=== PATIENT | male | born 1940 | race Caucasian/White ===

== ENCOUNTER 2019-08-22 15:12 | Emergency (ER) | payer OTHER ==
[2019-08-22] MEDS ORDERED: LIDOCAINE 1% MPF 5 ML VIAL ONE ×2 (16:20→16:27)
[2019-08-22] MEDS ORDERED: TETANUS & DIPHTHERIA TOX,ADULT 0.5 ML VIAL ONE (16:25)
--- NOTE | 2019-08-22 17:09 | EDPHYS ---
Physician Documentation [facility] Name: Que Taylor Age: 79 yrs Sex: Male : 1940 Arrival Date: 08/22/2019 Time: 15:13 Bed 15 Private MD: ED Physician Shayan Haynes HPI: 08/22 16:07 This 79 yrs old Male presents to ER via Ambulatory with complaints of jmm Laceration To Hand. 16:07 The patient has a laceration related to:. Onset: The symptoms/episode began/occurred jmm acutely, just prior to arrival. Associated signs and symptoms: Pertinent positives: Pertinent negatives: numbness distal to injury, suspected foreign body. This is a 79 year old male with a history of atrial fibrillation that presents to the ED with complaints of laceration to this left 2nd finger. Injury occurred while changing a switch blade. Denies other injury. . Historical: - Allergies: 15:27 No Known Allergies; ch - Home Meds: 15:27 Clonazepam Oral [Active]; finasteride Oral once daily [Active]; omeprazole 20 mg Oral ch cpDR 1 cap once daily [Active]; trazosin [Active]; trosimice [Active]; Xarelto Oral 1 tab once daily [Active]; - PMHx: 15:27 Atrial Fib; enlarged prostate; Hypertension; ch - PSHx: 15:50 None; rb1 - Immunization history:: Adult Immunizations up to date. - Social history:: Smoking status: Patient/guardian denies using tobacco. - Ebola Screening: : Patient negative for fever greater than or equal to 101.5 degrees Fahrenheit, and additional compatible Ebola Virus Disease symptoms Patient denies exposure to infectious person Patient denies travel to an Ebola-affected area in the 21 days before illness onset No symptoms or risks identified at this time. ROS: 16:07 Constitutional: Negative for fever, chills, and weight loss, Cardiovascular: Negative jmm for chest pain, palpitations, and edema, Respiratory: Negative for shortness of breath, cough, wheezing, and pleuritic chest pain. 16:07 MS/extremity: Positive for injury or acute deformity, laceration. 16:07 All other systems are negative. Exam: 16:07 Constitutional: This is a well developed, well nourished patient who is awake, alert, jmm and in no acute distress. Head/Face: atraumatic. Eyes: EOMI, no conjunctival erythema appreciated ENT: Moist Mucus Membranes Neck: Trachea midline, Supple Chest/axilla: Normal chest wall appearance and motion. Cardiovascular: Regular rate and rhythm. No edema appreciated Respiratory: Normal respirations, no respiratory distress appreciated Abdomen/GI: Non distended, soft Back: Normal ROM 16:07 Musculoskeletal/extremity: FROM noted to the left 2nd finger. . 16:07 Skin: 2cm laceration noted to the left 2 cm to the left 2nd finger. 16:07 Neuro: Orientation: is normal, Mentation: is normal, Memory: is normal. 16:07 Psych: Behavior/mood is pleasant, cooperative. Vital Signs: 15:43 BP 132 / 64; Pulse 50; Resp 16; Temp 97.; ch 15:43 Temp 97.5; Pulse Ox 99% on R/A; Weight 104.33 kg; Height 6 ft. (182.88 cm); Pain 2/10; ch 16:43 BP 133 / 65; Pulse 58; Resp 17; Pulse Ox 99% on R/A; Pain 0/10; rb1 15:43 Body Mass Index 31.19 (104.33 kg, 182.88 cm) ch Laceration: 17:06 Wound Repair of 2cm ( 0.8in ) subcutaneous laceration to palmar aspect of distal jmm phalanx of left index finger. Distal neuro/vascular/tendon intact. Anesthesia: Local anesthetic administered with 3 mls of 1% lidocaine. Wound prep: Simple cleansing with betadine by me. Skin closed with 4 4-0 Prolene using simple sutures and sterile technique. Patient tolerated well. MDM: 16:07 Patient medically screened. [facility] 17:06 Data reviewed: vital signs, nurses notes. Counseling: I had a detailed discussion with [facility] the patient and/or guardian regarding: the historical points, exam findings, and any diagnostic results supporting the discharge/admit diagnosis, the need for outpatient follow up, to return to the emergency department if symptoms worsen or persist or if there are any questions or concerns that arise at home. ED course: Patient given wound infection and bleeding return precautions. Patient understood and agrees with the plan of care. . Administered Medications: 16:33 Drug: Tetanus-Diphtheria Toxoid Adult 0.5 ml {[employer] Helper: [employer]. Exp: rb1 03/26/2021. Lot #: [id number]. } Route: IM; Site: left deltoid; 16:50 Follow up: Response: No adverse reaction [facility] 16:35 Drug: Lidocaine (1 %) 5 ml Volume: 5 ml; Route: Infiltration; rb1 Disposition: 08/23 07:44 Co-signature as Attending Physician, Shayan Haynes MD. Disposition: 08/22/19 17:08 Discharged to Home. Impression: Finger Laceration. - Condition is Stable. - Discharge Instructions: Laceration Care, Adult. - Prescriptions for Cephalexin 500 mg Oral Capsule - take 1 capsule by ORAL route every 6 hours for 10 days; 40 capsule. - Medication Reconciliation Form, Thank You Letter, Antibiotic Education, Prescription Opioid Use form. - Follow up: Private Physician; When: 5 - 6 days; Reason: Recheck today's complaints, Continuance of care, Staple/Suture removal, Re-evaluation by your physician. Signatures: Bibi Aden RN RN ch Mickail, Joel, PA PA jmm Barber, Rebecca, RN RN [facility] Shayan Haynes MD MD Corrections: (The following items were deleted from the chart) 08/22 18:06 17:08 08/22/2019 17:08 Discharged to Home. Impression: Finger Laceration. Condition is rb1 Stable. Forms are Medication Reconciliation Form, Thank You Letter, Antibiotic Education, Prescription Opioid Use. Follow up: Private Physician; When: 5 - 6 days; Reason: Recheck today's complaints, Continuance of care, Staple/Suture removal, Re-evaluation by your physician. ines
--- NOTE | 2019-08-22 17:09 | ER ---
Nurse's Notes [facility] Name: Que Taylor Age: 79 yrs Sex: Male : 1940 Arrival Date: 08/22/2019 Time: 15:13 Bed 15 Private MD: Diagnosis: Finger Laceration Presentation: 08/22 15:43 Presenting complaint: Patient states: cut finger about 1 hour ago on a knife/blade. Transition of care: patient was not received from another setting of care. Complicating Factors: There are no complicating factors for this patient. Onset of symptoms was August 22, 2019 at 14:40. Risk Assessment: Do you want to hurt yourself or someone else? Patient reports no desire to harm self or others. Initial Sepsis Screen: Does the patient meet any 2 criteria? No. Patient's initial sepsis screen is negative. Does the patient have a suspected source of infection? No. Patient's initial sepsis screen is negative. Care prior to arrival: None. 15:43 Method Of Arrival: Ambulatory 15:43 Acuity: FELIX 4 Triage Assessment: 15:43 General: Appears in no apparent distress. comfortable, Behavior is calm, cooperative, ch appropriate for age. Pain: Complains of pain in left hand. 15:45 Injury Description: Laceration sustained to palmar aspect of distal phalanx of left ch index finger is clean, 0.5 to 2.5 cm long, was sustained 30-60 minutes ago. Historical: - Allergies: 15:27 No Known Allergies; - Home Meds: 15:27 Clonazepam Oral [Active]; finasteride Oral once daily [Active]; omeprazole 20 mg Oral cpDR 1 cap once daily [Active]; trazosin [Active]; trosimice [Active]; Xarelto Oral 1 tab once daily [Active]; - PMHx: 15:27 Atrial Fib; enlarged prostate; Hypertension; - PSHx: 15:50 None; rb1 - Immunization history:: Adult Immunizations up to date. - Social history:: Smoking status: Patient/guardian denies using tobacco. - Ebola Screening: : Patient negative for fever greater than or equal to 101.5 degrees Fahrenheit, and additional compatible Ebola Virus Disease symptoms Patient denies exposure to infectious person Patient denies travel to an Ebola-affected area in the 21 days before illness onset No symptoms or risks identified at this time. Screenin:55 Abuse screen: Denies threats or abuse. Nutritional screening: No deficits noted. rb1 Tuberculosis screening: No symptoms or risk factors identified. Fall Risk None identified. Assessment: 15:55 General: Appears in no apparent distress. comfortable, Behavior is calm, cooperative. rb1 Pain: Complains of pain in palmar aspect of distal phalanx of left index finger Pain currently is 7 out of 10 on a pain scale. Pain began 1 hour ago. Neuro: Level of Consciousness is awake, alert, obeys commands, Oriented to person, place, time, situation. Cardiovascular: Capillary refill < 3 seconds is brisk in bilateral fingers. Respiratory: Airway is patent Respiratory effort is even, unlabored, Respiratory pattern is regular, symmetrical. GI: No signs and/or symptoms were reported involving the gastrointestinal system. : No signs and/or symptoms were reported regarding the genitourinary system. Derm: Skin is pink, warm \T\ dry. Musculoskeletal: Range of motion: intact in all extremities. Injury Description: Laceration sustained to palmar aspect of distal phalanx of left index finger is contaminated, was sustained 30-60 minutes ago. is bleeding a small amount. 16:42 Reassessment: Patient appears in no apparent distress at this time. Patient and/or rb1 family updated on plan of care and expected duration. Pain level reassessed. Patient is alert, oriented x 3, equal unlabored respirations, skin warm/dry/pink. Patient denies pain at this time. 17:21 Reassessment: Patient appears in no apparent distress at this time. No changes from rb1 previously documented assessment. Vital Signs: 15:43 BP 132 / 64; Pulse 50; Resp 16; Temp 97.; ch 15:43 Temp 97.5; Pulse Ox 99% on R/A; Weight 104.33 kg; Height 6 ft. (182.88 cm); Pain 2/10; ch 16:43 BP 133 / 65; Pulse 58; Resp 17; Pulse Ox 99% on R/A; Pain 0/10; rb1 15:43 Body Mass Index 31.19 (104.33 kg, 182.88 cm) ED Course: 15:13 Patient arrived in ED. as 15:43 Arm band placed on right wrist. Patient placed in an exam room, on a stretcher. ch 15:44 Triage completed. 15:51 Ame Penn, RN is Primary Nurse. rb1 15:55 Dusty Kendall PA is PHCP. [facility] 15:55 Shayan Haynes MD is Attending Physician. [facility] 15:55 Patient has correct armband on for positive identification. Bed in low position. Call rb1 light in reach. Side rails up X 1. Pulse ox on. NIBP on. 17:33 No provider procedures requiring assistance completed. Patient did not have IV access rb1 during this emergency room visit. Administered Medications: 16:33 Drug: Tetanus-Diphtheria Toxoid Adult 0.5 ml {Technical Analyst: [employer]. Exp: rb1 03/26/2021. Lot #: [id number]. } Route: IM; Site: left deltoid; 16:50 Follow up: Response: No adverse reaction [facility] 16:35 Drug: Lidocaine (1 %) 5 ml Volume: 5 ml; Route: Infiltration; rb1 Outcome: 17:08 Discharge ordered by . [facility] 17:33 Patient left the ED. rb1 17:33 Discharged to home ambulatory. rb1 17:33 Condition: stable 17:33 Discharge instructions given to patient, Instructed on discharge instructions, follow up and referral plans. medication usage, Demonstrated understanding of instructions, follow-up care, medications, Prescriptions given X 1. Signatures: Bibi Aden, RN RN Dusty Rios PA PA Cady Fonseca as Ame Penn, RN RN [facility] Corrections: (The following items were deleted from the chart) 19:09 18:06 Patient left the ED. rb1 rb1
[2019-08-22 18:53] VITALS: BP 132/64; TEMP 97.5; O2SAT 99
== END 2019-08-22 18:06 | disposition home or self-care (01) ==
LOC: ER 15:12
PROC: 0JQK0ZZ Repair Left Hand Subcutaneous Tissue and Fascia, Open Approach (ICD-10-PCS; principal; 2019-08-22)
DX: S61.211A Laceration without foreign body of left index finger without damage to nail, initial encounter (principal); W26.0XXA Contact with knife, initial encounter; Y93.89 Activity, other specified; Y92.9 Unspecified place or not applicable; Z79.01 Long term (current) use of anticoagulants; Z23 Encounter for immunization; I10 Essential (primary) hypertension; I48.91 Unspecified atrial fibrillation
CPT/HCPCS: 90471; 90714; 99283

== ENCOUNTER 2023-07-01 11:12 | Emergency (ER) | payer OTHER ==
--- OUTSIDE RECORDS SUMMARY | 2023-07-01 11:19 | XMS REPORT | Continuity of Care Document ---
:1940 Author Organization [facility] t Address [address] [facility]. [address] [place] [address] Care Team Providers Name Role Phone ADAMARIS SCHNEIDER Primary Care Physician Unavailable TRIPP CRUZ Attending Clinician Unavailable ADAMARIS SCHNEIDER Attending Clinician Unavailable ORAL SCHNEIDER Attending Clinician Unavailable Ilene Hansen MD Attending Clinician [phone] Tripp Cruz MD Attending Clinician [phone] Adamaris Schneider MD Attending Clinician DAVE NELSON Attending Clinician Unavailable Oral Schneider MD' Attending Clinician [phone] FRANCO_Valorie Attending Clinician Unavailable LUCAS FLANNERY Attending Clinician Unavailable LAB45 Attending Clinician Unavailable Padmini Jones MD Attending Clinician PADMINI JONES Attending Clinician Unavailable Aysha Waggoner MD Attending Clinician Unavailable Cheko GARCÍA, Anni Herrera Attending Clinician [phone] Estephania Gaitan CRNA Attending Clinician [phone] ORAL SCHNEIDER' Attending Clinician Unavailable OBIE LIMA Attending Clinician Unavailable ASKED, NO Attending Clinician Unavailable ALMA DELIA GIRARD Attending Clinician Unavailable TRIPP CRUZ Admitting Clinician Unavailable FRANCO_Corwin_Liza_ Admitting Clinician Unavailable ROBERT PADMINI MEJIA Admitting Clinician Unavailable ALMA DELIA GIRARD Admitting Clinician Unavailable MARY GRACE ORAL MCGRATH 'SHERRY' Admitting Clinician Unavailable Payers Payer Name Policy Type Policy Number Effective Date Expiration Date Rodrigo hayes SELF PAY OP [id number] 2023 DIAGNSTC IMGING 00:00:00 PKG [employer] MEDICARE HMO [id number] 2021 POS PPO 00:00:00 [employer] [place] PPO 5 [id number] 2021 00:00:00 Problems Condition Condition Condition Status Onset Resolution Last Treating Co mments Source Name Details Category Date Date Treatment Clinician Date Cognitive Cognitive Disease Active [facility] impairment impairment 3-10 [facility] 00:00: Medical 00 Fults BMI BMI Disease Active [facility] 33.0-33.9, 33.0-33.9, 3-10 [facility] adult adult 00:00: Medical 00 Fults 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 5-03 [facility] emia emia 00:00: Medical 00 Fults Hypertensi Hypertensi Disease Recurre [facility] ve heart ve heart nce 5-03 [facility] failure failure 00:00: Medical 00 Fults GERD GERD Disease Active [facility] (gastroeso (gastroeso 4-13 [facility] phageal phageal 00:00: Medical reflux reflux 00 Center disease) disease) Stage 3 Stage 3 Disease Recurre 2019-[address] [facility] chronic chronic nce 0-18 [facility] kidney kidney 00:00: Medical disease disease 00 Center Anemia Anemia Disease Active 2019-[address] [facility] 0-18 [facility] 00:00: Medical 00 Fults Chronic Chronic Disease Active [facility] constipati constipati 7-22 [facility] on on 00:00: Medical 00 Fults Osteoarthr Osteoarthr Disease Active [facility] itis of itis of 9-04 [facility] left hip left hip 00:00: Medica l 00 Center Sleep Sleep Disease Recurre Overview: [facility]04 [facility] 00:00: g of this Medical 00 note Center might be different from the original. 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 4-09 [facility] disease disease 00:00: Medical involving involving 00 Cent er soboba soboba coronary coronary artery of artery of [place] heart heart without without angina angina pectoris pectoris Nonobstruc Nonobstruc Disease Active [facility] tive tive 4-09 [facility] atheroscle atheroscle 00:00: Me dical rosis of rosis of 00 Center coronary coronary artery artery Chronic Chronic Disease Recurre 2015-[address] [facility] diastolic diastolic nce 2-12 [facility] heart heart 00:00: Medical failure failure 00 Center Chronic Chronic Disease Recurre [facility] atrial atrial nce 8-15 [facility] fibrillati fibrillati 00:00: Me dical on on 00 Center Hypertensi Hypertensi Disease Active [facility] on with on with 8-15 [facility] goal blood goal blood 00:00: Me dical pressure pressure 00 Center less than less than 140/90 140/90 Essential Essential Disease Active [facility] hypertensi hypertensi 8-15 [facility] on on 00:00: Medical 00 Center BPH BPH Disease Active [facility] (benign (benign 8-17 [facility] prostatic prostatic 00:00: Medi harika hyperplasi hyperplasi 00 Ce nter a) a) Elevated Elevated Disease Active [facility] prostate prostate 8-17 [facility] specific specific 00:00: Medica l antigen antigen 00 Center (PSA) (PSA) Allergies, Adverse Reactions, Alerts Allergy Allergy Status Severity Reaction(s) Onset Inactive Treating Comm ents Source Name Type Date Date Clinician NO KNOWN Allergy Active [facility] Family History Family Member Diagnosis Comments Start Date Stop Date Source Natural brother Heart disease [facility] Natural sister Heart disease [facility] Natural sister Cancer [facility] Social History Social Habit Start Date Stop Date Quantity Comments Source Gender identity [facility] Sexual orientation [facility] Hospital Exposure to 2023-03-06 2023-03-16 Not sure [facility] SARS-CoV-2 (event) 00:00:00 12:01:00 Medica l Center Alcohol intake 2023-03-16 2023-03-[address] [facility] 00:00:00 00:00:00 non-drinker of Medical Ce nter alcohol (finding) Cigarettes smoked 2023-01-11 2023-01-[address] [facility] current (pack per 00:00:00 00:00:00 Medical Center day) - Reported Cigarette 2023-01-11 2023-01-[address] [facility] pack-years 00:00:00 00:00:00 Medical Center Tobacco use and 2023-01-11 2023-01-[address] [facility] exposure 00:00:00 00:00:00 tobacco user Medical [facility] er Tobacco Comment 2020-12-04 2020-12-[address] [facility] [address] [facility] 00:00:00 00:00:00 [facility] History of tobacco 1978-02-[address] [facility] use 00:00:00 smokeless Medical Center tobacco Sex Assigned At [birth year] [facility] 00[facility] Smoking Status Start Date Stop Date Source Tobacco smoking [facility] consumption unknown Ex-smoker 2023-01-11 00:00:00 2023-01-[address] [facility] 00:00:00 Center Medications Ordered Filled Start Stop Current Ordering Indication Dosage Frequency Signature Comments Components Source Medication Medication Date Date Medication? Clinician (SIG) Name Name bumetanide Yes 1mg QD Take 1 [facility] (BUMEX) 1 5-04 tablet (1 [facility] MG tablet 14:53: mg total) Med ical 56 by mouth Center in the morning. furosemide Yes 80mg Q.5D Take 1 [facility] (LASIX) 80 5-04 tablet (80 [facility] MG tablet 14:53: mg total) Med ical 56 by mouth Center in the morning and 1 tablet (80 mg total) before bedtime. omeprazole Yes 40mg QD TAKE 1 [facility] (PriLOSEC) 4-11 CAPSULE [facility] 40 MG 00:00: (40 MG Medical capsule 00 TOTAL) BY Center MOUTH DAILY. Xarelto 20 Yes TAKE 1 [facility] mg tablet 3-16 TABLET BY [facility] 00:00: MOUTH Medical 00 EVERY DAY Center omeprazole 0 Yes 40mg QD TAKE 1 [facility] (PriLOSEC) 3-16 CAPSULE [facility] 40 MG 00:00: (40 MG Medical capsule 00 TOTAL) BY Center MOUTH DAILY. Xarelto 20 0 Yes TAKE 1 [facility] mg tablet 3-16 TABLET BY [facility] 00:00: MOUTH Medical 00 EVERY DAY Center omeprazole 0 3- No 40mg QD TAKE [address] [facility] (PriLOSEC) 3-16 04-11 CAPSULE [facility] 40 MG 00:00: 00:00 (40 MG Medical capsule 00 :00 TOTAL) BY Center MOUTH DAILY. bumetanide 0 Yes 1mg QD Take [address] [facility] [address] [facility] (BUMEX) 1 3-10 by mouth [facility] MG tablet 09:40: daily. Medica l 25 Center furosemide 0 Yes 80mg Q.5D Take [address] (LASIX) 80 3-10 by mouth 2 [facility] MG tablet 09:40: (two) Medical 25 times Center daily. bumetanide 0 Yes 1mg QD Take [address] [facility] [address] [facility] (BUMEX) 1 3-01 by mouth [facility] MG tablet 09:26: daily. Medica l 41 Center furosemide 0 Yes 80mg Q.5D Take [address] (LASIX) 80 3-01 by mouth 2 [facility] MG tablet 09:26: (two) Medical 41 times Center daily. dilTIAZem 0 Yes TAKE [address] [facility] (CARDIZEM 2-22 CAPSULE BY [facility] CD) 240 MG 00:00: MOUTH Medica l 24 hr 00 EVERY DAY Center capsule atorvastati 2022-0 Yes TAKE [address] [facility] n (LIPITOR) 2-22 TABLET BY [facility] 40 MG 00:00: MOUTH Medical tablet 00 EVERY DAY Center AT NIGHT dilTIAZem 2022-0 Yes TAKE [address] [facility] (CARDIZEM 2-22 CAPSULE BY [facility] CD) 240 MG 00:00: MOUTH Medica l 24 hr 00 EVERY DAY Center capsule atorvastati 2022-0 Yes TAKE [address] [facility] n (LIPITOR) 2-22 TABLET BY [facility] 40 MG 00:00: MOUTH Medical tablet 00 EVERY DAY Center AT NIGHT fluticasone 2022-0 Yes 2{spray QD [address] [facility] propionate 2-22 } daily. [facility] (FLONASE) 00:00: Medical 50 00 Center mcg/actuati on nasal spray dilTIAZem 2022-0 Yes TAKE [address] [facility] (CARDIZEM 2-22 CAPSULE BY [facility] CD) 240 MG 00:00: MOUTH Medica l 24 hr 00 EVERY DAY Center capsule atorvastati 0 Yes TAKE [address] [facility] n (LIPITOR) 2-22 TABLET BY [facility] 40 MG 00:00: MOUTH Medical tablet 00 EVERY DAY Center AT NIGHT fluticasone 2022-0 Yes 2{spray QD [address] [facility] propionate 2-22 } in the [facility] (FLONASE) 00:00: morning. Medi harika 50 00 Center mcg/actuati on nasal spray omeprazole 2022-0 Yes 40mg QD TAKE 1 [facility] (PriLOSEC) 2- CAPSULE [facility] 40 MG 00:00: (40 MG Medical capsule 00 TOTAL) BY Center MOUTH DAILY. omeprazole 2022-0 3- No 40mg QD TAKE [address] [facility] (PriLOSEC) 2-16 CAPSULE [facility] 40 MG 00:00: 00:00 (40 MG Medical capsule 00 :00 TOTAL) BY Center MOUTH DAILY. omeprazole 2022-0 3- No 40mg QD TAKE [address] [facility] (PriLOSEC) 2-16 CAPSULE [facility] 40 MG 00:00: 00:00 (40 MG Medical capsule 00 :00 TOTAL) BY Center MOUTH DAILY. dilTIAZem 2022-0 Yes 240mg QD Take 1 [facility] (CARDIZEM 1-17 capsule [facility] CD) 240 MG 00:00: (240 mg Medi harika 24 hr 00 total) by Center capsule mouth daily. omeprazole 2022-0 Yes 40mg QD Take 1 [facility] (PriLOSEC) 1-17 capsule [facility] 40 MG 00:00: (40 mg Medical capsule 00 total) by Center mouth daily. dilTIAZem 3-0 2023- No 240mg QD Take [address] [facility] (CARDIZEM 1-17 02-22 capsule [facility] CD) 240 MG 00:00: 00:00 (240 mg Med ical 24 hr 00 :00 total) by Center capsule mouth daily. dilTIAZem 2022-0 2023- No 240mg QD Take [address] [facility] (CARDIZEM 11-29 capsule [facility] CD) 240 MG 00:00: 00:00 (240 mg Med ical 24 hr 00 :00 total) by Center capsule mouth daily. dilTIAZem 2022-0 2022- No 240mg QD Take [address] [facility] (CARDIZEM 11-29 capsule [facility] CD) 240 MG 00:00: 00:00 (240 mg Med ical 24 hr 00 :00 total) by Center capsule mouth daily. omeprazole 2022-0 2022- No 40mg QD Take [address] [facility] (PriLOSEC) 11-29- capsule [facility] 40 MG 00:00: 00:00 (40 mg Medical capsule 00 :00 total) by Center mouth daily. omeprazole 2022-0 2022- No 40mg QD Take [address] [facility] (PriLOSEC) 11-29 capsule [facility] 40 MG 00:00: 00:00 (40 mg Medical capsule 00 :00 total) by Center mouth daily. omeprazole 2022-0 2022- No 40mg QD Take [address] [facility] (PriLOSEC) 11-29 capsule [facility] 40 MG 00:00: 00:00 (40 mg Medical capsule 00 :00 total) by Center mouth daily. bumetanide 2022-0 Yes 1mg QD Take [address] [facility] [address] [facility] (BUMEX) 1 1-13 by mouth [facility] MG tablet 13:42: daily. Medica 48 Center Xarelto 20 2022-0 Yes 20mg QD Take 1 [facility] mg tablet 1-03 tablet (20 [facility] 00:00: mg total) Medical 00 by mouth Center daily. atorvastati 2022-0 Yes 40mg QD Take [address] [facility] n (LIPITOR) 1-03 tablet (40 [facility] 40 MG 00:00: mg total) Medical tablet 00 by mouth Center nightly. Xarelto 20 2022-0 Yes 20mg QD Take 1 [facility] mg tablet 1-03 tablet (20 [facility] 00:00: mg total) Medical 00 by mouth Center daily. atorvastati 3-0 Yes 40mg QD Take [address] [facility] n (LIPITOR) 1-03 tablet (40 [facility] 40 MG 00:00: mg total) Medical tablet 00 by mouth Center nightly. Xarelto 20 2023-0 Yes 20mg QD Take 1 [facility] mg tablet -03 tablet (20 [facility] 00:00: mg total) Medical 00 by mouth Center daily. Xarelto 20 2022- No 20mg QD Take [address] [facility] mg tablet 11-15-16 tablet (20 [facility] 00:00: 00:00 mg total) Medical 00 :00 by mouth Center daily. Xarelto 20 2022- No 20mg QD Take [address] [facility] mg tablet 11-15-16 tablet (20 [facility] 00:00: 00:00 mg total) Medical 00 :00 by mouth Center daily. atorvastati 2022- No 40mg QD Take [address] [facility] n (LIPITOR) 11-15 tablet (40 [facility] 40 MG 00:00: 00:00 mg total) Medica l tablet 00 :00 by mouth Center nightly. atorvastati 2022- No 40mg QD Take [address] [facility] n (LIPITOR) 11-15 tablet (40 [facility] 40 MG 00:00: 00:00 mg total) Medica l tablet 00 :00 by mouth Center nightly. atorvastati 2022- No 40mg QD Take [address] [facility] n (LIPITOR) 11-15- tablet (40 [facility] 40 MG 00:00: 00:00 mg total) Medica l tablet 00 :00 by mouth Center nightly. terazosin 2021-11 Yes TAKE [address] [facility] (HYTRIN) 5 2-12 CAPSULE BY [facility] MG capsule 00:00: MOUTH Medica l 00 EVERY DAY Center terazosin 2021-11- No TAKE 1 [facility] (HYTRIN) 5 -10 13- CAPSULE BY [facility] MG capsule 00:00: 00:00 MOUTH Medic al 00 :00 EVERY DAY Center terazosin 2021-11- No TAKE 1 [facility] (HYTRIN) 5 -10 13- CAPSULE BY [facility] MG capsule 00:00: 00:00 MOUTH Medic al 00 :00 EVERY DAY Center terazosin 2021-11- No TAKE [facility] (HYTRIN) 5 -10 13-13 CAPSULE BY [facility] MG capsule 00:00: 00:00 MOUTH Medic al 00 :00 EVERY DAY Center terazosin 2021-11- No TAKE 1 [facility] (HYTRIN) 5 12-25 CAPSULE BY [facility] MG capsule 00:00: 00:00 MOUTH Medic al 00 :00 EVERY DAY Center dilTIAZem 2021-11 Yes TAKE [address] [facility] (CARDIZEM 2 CAPSULE BY [facility] CD) 240 MG 00:00: MOUTH Medica l 24 hr 00 EVERY DAY Center capsule dilTIAZem 2021-11- No TAKE 1 [facility] (CARDIZEM 12-19 CAPSULE BY [facility] CD) 240 MG 00:00: 00:00 MOUTH Medic al 24 hr 00 :00 EVERY DAY Center capsule dilTIAZem 2021-11- No TAKE [facility] (CARDIZEM 12-19 CAPSULE BY [facility] CD) 240 MG 00:00: 00:00 MOUTH Medic al 24 hr 00 :00 EVERY DAY Center capsule dilTIAZem 2021-11- No TAKE 1 [facility] (CARDIZEM 12-19 CAPSULE BY [facility] CD) 240 MG 00:00: 00:00 MOUTH Medic al 24 hr 00 :00 EVERY DAY Center capsule dilTIAZem 2021-11- No TAKE [facility] (CARDIZEM 12-19 CAPSULE BY [facility] CD) 240 MG 00:00: 00:00 MOUTH Medic al 24 hr 00 :00 EVERY DAY Center capsule dilTIAZem 2021-11- No 240mg QD Take [address] [facility] (Cartia XT) 11-27 capsule [facility] 240 MG 24 00:00: 00:00 (240 mg Medi harika hr capsule 00 :00 total) by Cent er mouth daily. dilTIAZem 2021-11- No 240mg QD Take [address] [facility] (Cartia XT) 11-27 capsule [facility] 240 MG 24 00:00: 00:00 (240 mg Medi harika hr capsule 00 :00 total) by Cent er mouth daily. dilTIAZem 2021-11- No 240mg QD Take [address] [facility] (Cartia XT) 11-27 capsule [facility] 240 MG 24 00:00: 00:00 (240 mg Medi harika hr capsule 00 :00 total) by Cent er mouth daily. dilTIAZem 2021-11 No 240mg QD Take [address] [facility] (Cartia XT) 1-15 12-06 capsule [facility] 240 MG 24 00:00: 00:00 (240 mg Medi harika hr capsule 00 :00 total) by Cent er mouth daily. dilTIAZem 2021-11 No 240mg QD Take [address] [facility] (Cartia XT) 1-15 12-06 capsule [facility] 240 MG 24 00:00: 00:00 (240 mg Medi harika hr capsule 00 :00 total) by Cent er mouth daily. diltiazem 2021-11 No 180mg QD Take [address] (TIAZAC) 1-11 11-11 mg by [facility] 180 MG 24 08:07: 00:00 mouth Medica l hr capsule 15 :00 daily. Fults diltiazem 2021-11 No 180mg QD Take [address] (TIAZAC) 1-11 11-11 mg by [facility] 180 MG 24 08:07: 00:00 mouth Medica l hr capsule 15 :00 daily. Fults diltiazem 2021-11 No 180mg QD Take [address] (TIAZAC) 1-11 11-11 mg by [facility] 180 MG 24 08:07: 00:00 mouth Medica l hr capsule 15 :00 daily. Fults diltiazem 2021-11- No 180mg QD Take [address] (TIAZAC) 1-11 11-11 mg by [facility] 180 MG 24 08:07: 00:00 mouth Medica l hr capsule 15 :00 daily. Fults diltiazem 2021-11- No 180mg QD Take [address] (TIAZAC) 1-11 11-11 mg by [facility] 180 MG 24 08:07: 00:00 mouth Medica l hr capsule 15 :00 daily. Fults diltiazem 2021-11- No 180mg QD Take [address] [facility] (TIAZAC) 1-11 11-15 capsule [facility] 180 MG 24 00:00: 00:00 (180 mg Medi harika hr capsule 00 :00 total) by Cent er mouth daily. diltiazem 2021-11- No 180mg QD Take [address] [facility] (TIAZAC) 11-23 capsule [facility] 180 MG 24 00:00: 00:00 (180 mg Medi harika hr capsule 00 :00 total) by Cent er mouth daily. diltiazem 2021-11- No 180mg QD Take [address] [facility] (TIAZAC) 11-23 capsule [facility] 180 MG 24 00:00: 00:00 (180 mg Medi harika hr capsule 00 :00 total) by Cent er mouth daily. diltiazem 2021-11- No 180mg QD Take [address] [facility] (TIAZAC) 11-23 capsule [facility] 180 MG 24 00:00: 00:00 (180 mg Medi harika hr capsule 00 :00 total) by Cent er mouth daily. diltiazem 2021-11 No 180mg QD Take [address] [facility] (TIAZAC) 11-23 capsule [facility] 180 MG 24 00:00: 00:00 (180 mg Medi harika hr capsule 00 :00 total) by Cent er mouth daily. clindamycin 2021-11- No 300mg Q.[id number] Take [address] [facility] (CLEOCIN) 11-21 [id number] capsule [facility] 300 MG 00:00: 23:59 3D (300 mg Medical capsule 00 :00 total) by Center mouth 3 (three) times daily for 10 days. clindamycin 2021-11- No 300mg Q.[id number] Take [address] [facility] (CLEOCIN) 11-21 [id number] capsule [facility] 300 MG 00:00: 23:59 3D (300 mg Medical capsule 00 :00 total) by Center mouth 3 (three) times daily for 10 days. clindamycin 2021-11- No 300mg Q.[id number] Take [address] [facility] (CLEOCIN) 11-21 [id number] capsule [facility] 300 MG 00:00: 23:59 3D (300 mg Medical capsule 00 :00 total) by Center mouth 3 (three) times daily for 10 days. clindamycin 2021-11- No 300mg Q.[id number] Take [address] [facility] (CLEOCIN) 11-21 [id number] capsule [facility] 300 MG 00:00: 23:59 3D (300 mg Medical capsule 00 :00 total) by Center mouth 3 (three) times daily for 10 days. clindamycin 2021-11- No 300mg Q.[id number] Take [address] [facility] (CLEOCIN) -07 24- [id number] capsule [facility] 300 MG 00:00: 23:59 3D (300 mg Medical capsule 00 :00 total) by Center mouth 3 (three) times daily for 10 days. bumetanide 2021-11 Yes 1mg QD Take [address] [facility] [address] [facility] (BUMEX) 1 0-26 by mouth [facility] MG tablet 12:26: daily. Medica l 54 Fults torsemide 2021-11- No 20mg QD Take [address] [facility] (DEMADEX) 0-26 10-26 by mouth [facility] 20 MG 12:26: 00:00 daily. Medical tablet 37 :00 Fults torsemide 2021-11- No 20mg QD Take [address] (DEMADEX) 0-26 10-26 by mouth [facility] 20 MG 12:26: 00:00 daily. Medical tablet 37 :00 Fults torsemide 2021-11- No 20mg QD Take [address] (DEMADEX) 0-26 10-26 by mouth [facility] 20 MG 12:26: 00:00 daily. Medical tablet 37 :00 Fults torsemide 2021-11- No 20mg QD Take [address] (DEMADEX) 0-26 10-26 by mouth [facility] 20 MG 12:26: 00:00 daily. Medical tablet 37 :00 Fults torsemide 2021-11- No 20mg QD Take [address] (DEMADEX) 0-26 10-26 by mouth [facility] 20 MG 12:26: 00:00 daily. Medical tablet 37 :00 Fults clindamycin 2021-11- No 300mg Q.[id number] Take [address] [facility] (CLEOCIN) 0-26 - [id number] capsule [facility] 300 MG 00:00: 23:59 3D (300 mg Medical capsule 00 :00 total) by Center mouth 3 (three) times daily for 7 days. clindamycin 2021-11- No 300mg Q.[id number] Take [address] [facility] (CLEOCIN) 0-26 - [id number] capsule [facility] 300 MG 00:00: 23:59 3D (300 mg Medical capsule 00 :00 total) by Center mouth 3 (three) times daily for 7 days. clindamycin 2021-11- No 300mg Q.[id number] Take [address] [facility] (CLEOCIN) 0-08 10- [id number] capsule [facility] 300 MG 00:00: 23:59 3D (300 mg Medical capsule 00 :00 total) by Center mouth 3 (three) times daily for 7 days. clindamycin 2021-11- No 300mg Q.[id number] Take [address] [facility] (CLEOCIN) 0- [id number] capsule [facility] 300 MG 00:00: 23:59 3D (300 mg Medical capsule 00 :00 total) by Center mouth 3 (three) times daily for 7 days. clindamycin 2021-11- No 300mg Q.[id number] Take [address] [facility] (CLEOCIN) 0- [id number] capsule [facility] 300 MG 00:00: 23:59 3D (300 mg Medical capsule 00 :00 total) by Center mouth 3 (three) times daily for 7 days. terazosin 2021-11- No [facility]KE [facility] (HYTRIN) 5 0-21 10-26 CAPSULE BY [facility] MG capsule 00:00: 00:00 MOUTH Medic al 00 :00 EVERY DAY Fults terazosin 2021-11- No TAKE [facility] (HYTRIN) 5 0-21 10-26 CAPSULE BY [facility] MG capsule 00:00: 00:00 MOUTH Medic al 00 :00 EVERY DAY Fults terazosin 2021-11- No TAKE [facility] (HYTRIN) 5 0-21 10-26 CAPSULE BY [facility] MG capsule 00:00: 00:00 MOUTH Medic al 00 :00 EVERY DAY Center terazosin 2021-11- No TAKE [facility] (HYTRIN) 5 0-21 10-26 CAPSULE BY [facility] MG capsule 00:00: 00:00 MOUTH Medic al 00 :00 EVERY DAY Fults terazosin 2021-11- No TAKE 1 [facility] (HYTRIN) 5 0-21 10-26 CAPSULE BY [facility] MG capsule 00:00: 00:00 MOUTH Medic al 00 :00 EVERY DAY Center finasteride Yes TAKE [address] [facility] (PROSCAR) 5 9-21 TABLET BY [facility] mg tablet 00:00: MOUTH Medical 00 EVERY DAY Center finasteride Yes TAKE [address] [facility] (PROSCAR) 5 9-21 TABLET BY [facility] mg tablet 00:00: MOUTH Medical 00 EVERY DAY Center finasteride Yes TAKE [address] [facility] (PROSCAR) 5 9-21 TABLET BY [facility] mg tablet 00:00: MOUTH Medical 00 EVERY DAY Center finasteride Yes TAKE [address] [facility] (PROSCAR) 5 9-21 TABLET BY [facility] mg tablet 00:00: MOUTH Medical 00 EVERY DAY Center finasteride Yes TAKE [address] [facility] (PROSCAR) 5 9-21 TABLET BY [facility] mg tablet 00:00: MOUTH Medical 00 EVERY DAY Center furosemide 2021- No 20mg Q.5D Take [address] [facility] (LASIX) 20 07-22 by mouth 2 [facility] MG tablet 14:35: 00:00 (two) Medica l 39 :00 times Center daily. furosemide 2021- No 20mg Q.5D Take [address] [facility] (LASIX) 20 07-22 by mouth 2 [facility] MG tablet 14:35: 00:00 (two) Medica l 39 :00 times Center daily. furosemide 2021- No 20mg Q.5D Take [address] [facility] (LASIX) 20 07-22 by mouth 2 [facility] MG tablet 14:35: 00:00 (two) Medica l 39 :00 times Center daily. furosemide 2021- No 20mg Q.5D Take [address] [facility] (LASIX) 20 07-22 by mouth 2 [facility] MG tablet 14:35: 00:00 (two) Medica l 39 :00 times Center daily. furosemide 2021- No 20mg Q.5D Take [address] [facility] (LASIX) 20 07-22 by mouth 2 [facility] MG tablet 14:35: 00:00 (two) Medica l 39 :00 times Center daily. omeprazole 2022-0 Yes 40mg QD Take [address] (PriLOSEC) 07-18 by mouth [facility] 40 MG 00:00: daily. Medical capsule 00 Fults omeprazole 2021-0 2023- No 40mg QD Take [address] [facility] (PriLOSEC) 07-18 by mouth [facility] 40 MG 00:00: 00:00 daily. Medical capsule 00 :00 Fults omeprazole 2021-0 2023- No 40mg QD Take [address] [facility] (PriLOSEC) 07-18 by mouth [facility] 40 MG 00:00: 00:00 daily. Medical capsule 00 :00 Fults omeprazole 2021-0 2023- No 40mg QD Take [address] [facility] (PriLOSEC) 07-18 by mouth [facility] 40 MG 00:00: 00:00 daily. Medical capsule 00 :00 Fults omeprazole 2021-0 2023- No 40mg QD Take [address] [facility] (PriLOSEC) 07-18 by mouth [facility] 40 MG 00:00: 00:00 daily. Medical capsule 00 :00 Fults Xarelto 20 2021-0 2023- No 20mg QD Take [address] [facility] mg tablet 05-14 by mouth [facility] 00:00: 00:00 daily. Medical 00 :00 Fults Xarelto 20 2021-0 2023- No 20mg QD Take [address] [facility] mg tablet 05-14 by mouth [facility] 00:00: 00:00 daily. Medical 00 :00 Fults Xarelto 20 2021-0 2023- No 20mg QD Take [address] [facility] mg tablet 05-14 by mouth [facility] 00:00: 00:00 daily. Medical 00 :00 Fults Xarelto 20 2021-0 2023- No 20mg QD Take [address] [facility] mg tablet 05-14 by mouth [facility] 00:00: 00:00 daily. Medical 00 :00 Fults Xarelto 20 2021-0 2023- No 20mg QD Take [address] [facility] mg tablet 05-14 by mouth [facility] 00:00: 00:00 daily. Medical 00 :00 Fults atorvastati 2021-0 2023- No 40mg QD Take [address] [facility] (LIPITOR) 05-03 by mouth [facility] 40 MG 00:00: 00:00 nightly. Medical tablet 00 :00 Fults atorvastati 2021-0 3- No 40mg QD Take [address] [facility] (LIPITOR) 05-03 by mouth [facility] 40 MG 00:00: 00:00 nightly. Medical tablet 00 :00 Fults atorvastati 2021-0 3- No 40mg QD Take [address] [facility] (LIPITOR) 05-03 by mouth [facility] 40 MG 00:00: 00:00 nightly. Medical tablet 00 :00 Fults atorvastati 2021-0 3- No 40mg QD Take [address] [facility] (LIPITOR) 05-03 by mouth [facility] 40 MG 00:00: 00:00 nightly. Medical tablet 00 :00 Fults atorvastati 2021-0 3- No 40mg QD Take [address] [facility] (LIPITOR) 05-03 by mouth [facility] 40 MG 00:00: 00:00 nightly. Medical tablet 00 :00 Fults atenoloL 2022-0 2022- No 25mg QD Take [address] [facility] [address] [facility] (TENORMIN) 6-15 10-26 by mouth [facility] 25 MG 00:00: 00:00 daily. Medical tablet 00 :00 Fults atenoloL 2022-0 2022- No 25mg QD Take [address] [facility] [address] [facility] (TENORMIN) 6-15 10-26 by mouth [facility] 25 MG 00:00: 00:00 daily. Medical tablet 00 :00 Fults atenoloL 2022-0 2022- No 25mg QD Take [address] [facility] [address] [facility] (TENORMIN) 6-15 10-26 by mouth [facility] 25 MG 00:00: 00:00 daily. Medical tablet 00 :00 Center atenoloL 2022-0 2022- No 25mg QD Take [address] [facility] [address] [facility] (TENORMIN) 6-15 10-26 by mouth [facility] 25 MG 00:00: 00:00 daily. Medical tablet 00 :00 Fults atenoloL 2022-0 2022- No 25mg QD Take [address] [facility] [address] [facility] (T[facility]MIN) 6-15 10-26 by mouth Luke [facility] 25 MG 00:00: 00:00 daily. Medical tablet 00 :00 Fults terazosin 2021- No [facility] 5 - 10-21 CAPSULE BY Maddison kes MG capsule 00:00: 00:00 MOUTH Medic al 00 :00 EVERY DAY Center terazosin 2021- No [facility] 5 -03 09-21 CAPSULE BY Maddison kes MG capsule 00:00: 00:00 MOUTH Medic al 00 :00 EVERY DAY Center [facility]az[facility] 2021- [facility] 02-01- CAPSULE BY [facility] MG capsule 00:00: 00:00 MOUTH Medic al 00 :00 EVERY DAY Center terazosin 2021- [facility] 5 02-01- CAPSULE BY [facility] MG capsule 00:00: 00:00 MOUTH Medic al 00 :00 EVERY DAY Fults terazosin 2021- No [facility] 02-01- CAPSULE BY [facility] MG capsule 00:00: 00:00 MOUTH Medic al 00 :00 EVERY DAY Fults finasteride 2021- No TAKE [address] [facility] (PROSCAR) 5 02-01-21 TABLET BY [facility] mg tablet 00:00: 00:00 MOUTH Medica l 00 :00 EVERY DAY Fults finasteride 2021- No TAKE [address] [facility] (PROSCAR) 5 02-01-21 TABLET BY [facility] mg tablet 00:00: 00:00 MOUTH Medica l 00 :00 EVERY DAY Fults finasteride 2021- No TAKE [address] [facility] (PROSCAR) 5 02-01-21 TABLET BY [facility] mg tablet 00:00: 00:00 MOUTH Medica l 00 :00 EVERY DAY Center finasteride 2021- No TAKE [address] [facility] (PROSCAR) 5 02-01-21 TABLET BY [facility] mg tablet 00:00: 00:00 MOUTH Medica l 00 :00 EVERY DAY Fults finasteride 2021- No TAKE [address] [facility] (PROSCAR) 5 02-01-21 TABLET BY [facility] mg tablet 00:00: 00:00 MOUTH Medica l 00 :00 EVERY DAY Fults multivitami 2021-2021- No 1{tbl} QD Take [address] [facility] per 3-10 03-10 tablet by [facility] 14:04: 00:00 mouth Medical 08 :00 daily. Fults multivitami 2021-2021- No 1{tbl} QD Take [address] [facility] per 3-10 03-10 tablet by [facility] tablet 14:04: 00:00 mouth Medical 08 :00 daily. Fults multivitami 2021-2021- No 1{tbl} QD Take [address] [facility] per 3-10 03-10 tablet by [facility] tablet 14:04: 00:00 mouth Medical 08 :00 daily. Fults finasteride 2021- No TAKE [address] [facility] (PROSCAR) 5 2-15 03-10 TABLET BY [facility] mg tablet 00:00: 00:00 MOUTH Medica l 00 :00 EVERY DAY Fults finasteride 2021- No TAKE [address] [facility] (PROSCAR) 5 2-15 03-10 TABLET BY [facility] mg tablet 00:00: 00:00 MOUTH Medica l 00 :00 EVERY DAY Fults finasteride 2021- No TAKE [address] [facility] (PROSCAR) 5 2-15 03-10 TABLET BY [facility] mg tablet 00:00: 00:00 MOUTH Medica l 00 :00 EVERY DAY Fults rivaroxaban 2021- No 20mg QD Take [address] [facility] (Xarelto) 1-03 03-10 tablet (20 [facility] 20 mg Tab 00:00: 00:00 mg total) Me dical tablet 00 :00 by mouth Center daily. rivaroxaban 2021- No 20mg QD Take [address] [facility] (Xarelto) 1-03 03-10 tablet (20 [facility] 20 mg Tab 00:00: 00:00 mg total) Me dical tablet 00 :00 by mouth Center daily. rivaroxaban 2021-2021- No 20mg QD Take [address] [facility] (Xarelto) 1-03 03-10 tablet (20 [facility] 20 mg Tab 00:00: 00:00 mg total) Me dical tablet 00 :00 by mouth Center daily. omeprazole 2020-11- No TAKE [address] [facility] (PriLOSEC) 2-13 03-10 CAPSULE BY [facility] 40 MG 00:00: 00:00 MOUTH Medical capsule 00 :00 EVERY DAY Center omeprazole 2020-11- No TAKE [address] [facility] (PriLOSEC) 2-13 03-10 CAPSULE BY [facility] 40 MG 00:00: 00:00 MOUTH Medical capsule 00 :00 EVERY DAY Center omeprazole 2020-11- No TAKE [address] [facility] (PriLOSEC) 2-13 03-10 CAPSULE BY [facility] 40 MG 00:00: 00:00 MOUTH Medical capsule 00 :00 EVERY DAY Center atenoloL 2020-11- No 25mg QD Take [address] [facility] (TENORMIN) 0-19 03-10 tablet (25 [facility] 25 MG 00:00: 00:00 mg total) Medica l tablet 00 :00 by mouth Center daily. atorvastati 2020-11- No 40mg QD Take [address] [facility] (LIPITOR) 0-19 03-10 tablet (40 [facility] 40 MG 00:00: 00:00 mg total) Medica l tablet 00 :00 by mouth Center nightly. torsemide 2020-11- No Hypertensio 20mg QD Take [address] [facility] (DEMADEX) 0-19 03-10 n with goal tablet (20 [facility] 20 MG 00:00: 00:00 blood mg total) Medic al tablet 00 :00 pressure by mouth Cente r less than daily. 140/90 atenoloL 2020-11- No 25mg QD Take [address] [facility] (TENORMIN) 0-19 03-10 tablet (25 [facility] 25 MG 00:00: 00:00 mg total) Medica l tablet 00 :00 by mouth Center daily. atorvastati 2020-11- No 40mg QD Take [address] [facility] (LIPITOR) 0-19 03-10 tablet (40 L [facility] 40 MG 00:00: 00:00 mg total) Medica l tablet 00 :00 by mouth Center nightly. torsemide 2020-11- No Hypertensio 20mg QD Take [address] [facility] (DEMADEX) 0-19 03-10 n with goal tablet (20 [facility] 20 MG 00:00: 00:00 blood mg total) Medic al tablet 00 :00 pressure by mouth Cente r less than daily. 140/90 atenoloL 2020-11- No 25mg QD Take [address] [facility] (TENORMIN) 0-19 03-10 tablet (25 [facility] 25 MG 00:00: 00:00 mg total) Medica l tablet 00 :00 by mouth Center daily. atorvastati 2020-11- No 40mg QD Take [address] [facility] (LIPITOR) 0-19 03-10 tablet (40 L [facility] 40 MG 00:00: 00:00 mg total) Medica l tablet 00 :00 by mouth Center nightly. torsemide 2020-11- No Hypertensio 20mg QD Take [address] [facility] (DEMADEX) 0-19 03-10 n with goal tablet (20 [facility] 20 MG 00:00: 00:00 blood mg total) Medic al tablet 00 :00 pressure by mouth Cente r less than daily. 140/90 finasteride 2020-11- No TAKE [address] [facility] (PROSCAR) 5 0-12 02-15 TABLET BY [facility] mg tablet 00:00: 00:00 MOUTH Medica l 00 :00 EVERY DAY Center finasteride 2020-11- No TAKE [address] [facility] (PROSCAR) 5 0-12 02-15 TABLET BY [facility] mg tablet 00:00: 00:00 MOUTH Medica l 00 :00 EVERY DAY Center terazosin 2021- No 5mg QD [facility] 5 7-20 03-10 capsule (5 [facility] MG capsule 00:00: 00:00 mg total) M edical 00 :00 by mouth Center daily. terazosin 2021- No 5mg QD [facility] ([facility] 5 7-20 03-10 capsule (5 [facility] MG capsule 00:00: 00:00 mg total) M edical 00 :00 by mouth Center daily. terazosin 2021- No 5mg QD [facility] 5 7-20 03-10 capsule (5 [facility] MG capsule 00:00: 00:00 mg total) M edical 00 :00 by mouth Center daily. Immunizations Ordered Immunization Filled Immunization Date Status Commen ts Source Name Name Influenza High Dose 2022-09-07 [facility]00 [facility] ([id number]) Influenza High Dose 2022-09-07 [facility]:00:00 [facility] ([id number]) Influenza High Dose 2022-09-07 [facility] 00:00:00 [facility] ([id number]) Influenza High Dose 2022-09-07 [facility] 00:00:00 [facility] ([id number]) Influenza High Dose 2022-09-07 [facility] 00:00:00 [facility] ([id number]) Covid-19 Vaccine MRNA 2021-11-[address] [facility] (PF) 12yr+ 00:00:00 [facility] (Pfizer/BioNTech)(IMM 601) Covid-19 Vaccine MRNA 2021-11-[address] [facility] (PF) 12yr+ 00:00:00 [facility] (Pfizer/BioNTech)(IMM 601) Covid-19 Vaccine MRNA 2021-11-[address] [facility] (PF) 12yr+ 00:00:00 [facility] (Pfizer/BioNTech)(IMM 601) Covid-19 Vaccine MRNA 2021-11-[address] [facility] (PF) 12yr+ 00:00:00 [facility] (Pfizer/BioNTech)(IMM 601) Covid-19 Vaccine MRNA 2021-11-[address] [facility] (PF) 12yr+ 00:00:00 [facility] (Pfizer/BioNTech)(IMM 601) Influenza High Dose 2021-08-31 [facility] Pres[facility] 00:00:00 [facility] ([id number]) Pneumococcal 2021-08-[address] [facility] Polysaccharide 00:00:00 [facility] (Pneumovax) Influenza High Dose 2021-08-31 [facility] Pres[facility] Free IM 00:00:00 [facility] ([id number]) Pneumococcal 2021-08-[address] [facility] Polysaccharide 00:00:00 [facility] (Pneumovax) Influenza High Dose 2021-08-31 [facility] Pres[facility] Free IM 00:00:00 [facility] ([id number]) Pneumococcal 2021-08-[address] [facility] Polysaccharide 00:00:00 [facility] (Pneumovax) Influenza High Dose 2021-08-31 [facility] Pres[facility] IM 00:00:00 [facility] ([id number]) Pneumococcal 2021-08-[address] [facility] Polysaccharide 00:00:00 [facility] (Pneumovax) Influenza High Dose 2021-08-31 [facility] Preservative Free IM 00:00:00 [facility] ([id number]) Pneumococcal 2021-08-[address] [facility] Polysaccharide 00:00:00 [facility] (Pneumovax) Covid-19 Vaccine MRNA 2021-01-[address] [facility] (PF) 12yr+ 00:00:00 [facility] (Pfizer/BioNTech)(IMM 601) Covid-19 Vaccine MRNA 2021-01-[address] [facility] (PF) 12yr+ 00:00:00 [facility] (Pfizer/BioNTech)(IMM 601) Covid-19 Vaccine MRNA 2021-01-[address] [facility] (PF) 12yr+ 00:00:00 [facility] (Pfizer/BioNTech)(IMM 601) Covid-19 Vaccine MRNA 2021-01-[address] [facility] (PF) 12yr+ 00:00:00 [facility] (Pfizer/BioNTech)(IMM 601) Covid-19 Vaccine MRNA 2021-01-[address] [facility] (PF) 12yr+ 00:00:00 [facility] (Pfizer/BioNTech)(IMM 601) PFIZER COVID-19 MRNA 2021-01-10 Completed [facility] VACCINATION 00:00:00 [facility] Covid-19 Vaccine MRNA 2020-12-[address] [facility] (PF) 12yr+ 00:00:00 [facility] (Pfizer/BioNTech)(IMM 601) Covid-19 Vaccine MRNA 2020-12-[address] [facility] (PF) 12yr+ 00:00:00 [facility] (Pfizer/BioNTech)(IMM 601) Covid-19 Vaccine MRNA 2020-12-[address] [facility] (PF) 12yr+ 00:[facility]:00 [facility] (Pfizer/BioNTech)(IMM 601) Covid-19 Vaccine MRNA 2020-12-[address] [facility] (PF) 12yr+ 00:00:00 [facility] (Pfizer/BioNTech)(IMM 601) Covid-19 Vaccine MRNA 2020-12-[address] [facility] (PF) 12yr+ 00:00:00 [facility] (Pfizer/BioNTech)(IMM 601) PFIZER COVID-19 MRNA 2020-12-20 Completed [facility]ist VACCINATION 00:00:00 [facility] Influenza, High Dose 2020-07-[address] [facility] Seasonal 00:00:00 [facility] INFLUENZA QIV 2020-07-[address] [facility] ADJUVANTED PF IM 00:00:00 [facility] ([id number]) Influenza, High Dose 2020-07-[address] [facility] Seasonal 00:00:00 [facility] INFLUENZA QIV 2020-07-[address] [facility] ADJUVANTED PF IM 00:00:00 [facility] ([id number]) Influenza, High Dose 2020-07-[address] [facility] Seasonal 00:00:00 [facility] INFLUENZA QIV 2020-07-[address] [facility] ADJUVANTED PF IM 00:00:00 [facility] ([id number]) Influenza, High Dose 2020-07-[address] [facility] Seasonal 00:00:00 [facility] INFLUENZA QIV 2020-07-[address] [facility] ADJUVANTED PF IM 00:00:00 [facility] ([id number]) Influenza, High Dose 2020-07-[address] [facility] Seasonal 00:00:00 [facility] INFLUENZA QIV 2020-07-[address] [facility] ADJUVANTED PF IM 00:00:00 [facility] ([id number]) Pneumococcal 2020-06-[address] [facility]jugate (Prevnar) [facility] Pneumococcal 2020-06-[address] [facility] Conjugate (Prevnar) 00:00:[facility] Pneumococcal 2020-06-[address] [facility] Conjugate (Prevnar) 00:00:00 [facility] Pneumococcal 2020-06-[address] [facility] Conjugate (Prevnar) 00:00:00 [facility] Pneumococcal 2020-06-[address] [facility] Conjugate (Prevnar) 00:00:00 [facility] Vital Signs Vital Name Observation Time Observation Value Comments Source HEIGHT 2023-01-11 09:28:00 182.9 cm WEIGHT 2023-01-11 09:28:00 105.688 kg WEIGHT 2020-12-04 08:55:00 112.719 kg HEIGHT 2020-12-04 08:55:00 182.9 cm HEIGHT 2020-12-02 09:42:00 182.9 cm WEIGHT 2020-12-02 09:42:00 111.131 kg HEIGHT 2023-03-16 11:30:00 177.8 cm WEIGHT 2023-03-16 11:30:00 108.863 kg HEIGHT 2023-03-07 14:33:00 177.8 cm WEIGHT 2023-03-07 14:33:00 105.235 kg HEIGHT 2023-03-16 11:30:00 177.8 cm WEIGHT 2023-03-16 11:30:00 108.863 kg HEIGHT 2023-03-07 14:33:00 177.8 cm WEIGHT 2023-03-07 14:33:00 105.235 kg HEIGHT 2022-11-25 13:40:00 182.9 cm WEIGHT 2022-11-25 13:40:00 113.626 kg HEIGHT 2022-09-21 13:25:00 182.9 cm WEIGHT 2022-09-21 13:25:00 108.954 kg HEIGHT 2022-09-07 12:21:00 182.9 cm WEIGHT 2022-09-07 12:21:00 108.41 kg HEIGHT 2022-07-22 12:29:00 182.9 cm WEIGHT 2022-07-22 12:29:00 112.492 kg HEIGHT 2022-01-19 14:53:00 182.9 cm WEIGHT 2022-01-19 14:53:00 115.667 kg HEIGHT 2022-01-19 14:53:00 182.9 cm WEIGHT 2022-01-19 14:53:00 115.667 kg HEIGHT 2021-12-03 10:00:00 182.9 cm WEIGHT 2021-12-03 10:00:00 111.585 kg HEIGHT 2021-12-02 12:39:00 182.9 cm WEIGHT 2021-12-02 12:39:00 113.399 kg HEIGHT 2021-12-03 10:00:00 182.9 cm WEIGHT 2021-12-03 10:00:00 111.585 kg HEIGHT 2021-12-02 12:39:00 182.9 cm WEIGHT 2021-12-02 12:39:00 113.399 kg HEIGHT 2021-08-31 11:39:00 182.9 cm WEIGHT 2021-08-31 11:39:00 114.306 kg HEIGHT 2021-08-31 10:40:00 182.9 cm WEIGHT 2021-08-31 10:40:00 114.306 kg HEIGHT 2021-06-01 10:08:00 182.9 cm WEIGHT 2021-06-01 10:08:00 113.399 kg HEIGHT 2021-02-23 10:04:00 182.9 cm WEIGHT 2021-02-23 10:04:00 112.946 kg WEIGHT 2020-12-04 08:55:00 112.719 kg HEIGHT 2020-12-04 08:55:00 182.9 cm HEIGHT 2020-12-02 09:42:00 182.9 cm WEIGHT 2020-12-02 09:42:00 111.131 kg HEIGHT 2020-11-16 16:23:00 182.9 cm WEIGHT 2020-11-16 16:23:00 113.399 kg HEIGHT 2020-08-25 10:15:00 182.9 cm WEIGHT 2020-08-25 10:15:00 112.492 kg HEIGHT 2020-06-03 00:00:00 182.9 cm WEIGHT 2020-06-03 00:00:00 111.131 kg Systolic blood 2023-03-16 14:11:00 141 mm[Hg] [facility] Diastolic blood 2023-03-16 14:11:00 65 mm[Hg] [facility] Heart rate 2023-03-16 14:11:00 57 /min [facility] Respiratory rate 2023-03-16 14:11:00 17 /min [facility] Oxygen saturation in 2023-03-16 14:11:00 97 /min [facility] Arterial blood by Medical Ce nter Pulse oximetry Body temperature 2023-03-16 13:51:00 36.11 Loretta [facility] Body height 2023-03-16 11:30:00 177.8 cm [facility] Body weight 2023-03-16 11:30:00 108.863 kg [facility] BMI 2023-03-16 11:30:00 34.44 kg/m2 [facility] Systolic blood 2023-01-20 09:43:00 129 mm[Hg] [facility] Diastolic blood 2023-01-20 09:43:00 76 mm[Hg] [facility] Heart rate 2023-01-20 09:34:00 65 /min [facility] Body temperature 2023-01-20 09:34:00 36.44 Loretta [facility] Body height 2023-01-20 09:34:00 177.8 cm [facility] Body weight 2023-01-20 09:34:00 105.507 kg [facility] BMI 2023-01-20 09:34:00 33.37 kg/m2 [facility] Oxygen saturation in 2023-01-20 09:34:00 98 /min [facility] Arterial blood by Medical Ce nter Pulse oximetry Body height 2023-01-11 09:28:00 182.9 cm [facility] Body weight 2023-01-11 09:28:00 105.688 kg [facility] BMI 2023-01-11 09:28:00 31.60 kg/m2 [facility] Systolic blood 2022-11-25 13:41:00 161 mm[Hg] [facility] Diastolic blood 2022-11-25 13:41:00 85 mm[Hg] [facility] Heart rate 2022-11-25 13:41:00 66 /min [facility] Body temperature 2022-11-25 13:40:00 36.83 Loretta [facility] Body height 2022-11-25 13:40:00 182.9 cm [facility] Body weight 2022-11-25 13:40:00 113.626 kg [facility] BMI 2022-11-25 13:40:00 33.97 kg/m2 [facility] Oxygen saturation in 2022-11-25 13:40:00 98 /min [facility] Arterial blood by Medical Ce nter Pulse oximetry Systolic blood 2022-09-21 13:26:00 171 mm[Hg] [facility] Diastolic blood 2022-09-21 13:26:00 70 mm[Hg] [facility] Heart rate 2022-09-21 13:26:00 70 /min [facility] Body temperature 2022-09-21 13:25:00 36.5 Loretta [facility] Body height 2022-09-21 13:25:00 182.9 cm [facility] Body weight 2022-09-21 13:25:00 108.954 kg [facility] BMI 2022-09-21 13:25:00 32.58 kg/m2 [facility] Oxygen saturation in 2022-09-07 12:21:00 95 /min [facility] Arterial blood by Medical Ce nter Pulse oximetry Respiratory rate 2022-01-20 14:30:00 18 /min [facility] Procedures Procedure Date / Time Performed Performing Clinician [facility] e REPORT OF PROCEDURE - 2023-03-16 13:54:54 Tripp Cruz [facility] ENDOSCOPY URL [facility] COLONOSCOPY, WITH 2023-03-16 13:12:00 Tripp Cruz [facility] es POLYPECTOMY [facility] CT BRAIN WITHOUT IV 2023-01-25 09:59:00 Adamaris Schneider [facility] CBC W/PLT COUNT & AUTO 2023-01-25 09:05:00 Adamaris Schneider [facility] COMPREHENSIVE METABOLIC 2023-01-25 09:05:[address] [facility] LIPID PANEL 2023-01-25 09:05:00 Adamaris Schneider [facility] VITAMIN B12 2023-01-25 09:05:00 Adamaris Schneider [facility] PSA 2023-01-25 09:05:00 Adamaris Schneider [facility] TSH/FREE T4 IF INDICATED 2023-01-25 09:05:00 Adamaris Schneider [facility] COLONOSCOPY 2023-01-12 11:30[facility] 2022-12-15 09:00:00 Nancy [facility] CT LOWER EXTREMITY WITH & 2022-10-04 11:45:00 Adamaris Schneider [facility] WITHOUT IV CONTRAST RIGHT [facility] POCT-CREATININE 2022-10-04 11:19:00 Adamaris Schneider [facility] XR FOOT 2 VIEWS RIGHT 2022-09-07 13:39:00 Adamaris Schneider [facility] HEMOGLOBIN A1C 2022-07-28 08:32:00 Adamaris Schneider [facility] CBC W/PLT COUNT & AUTO 2022-07-28 08:32:00 Adamaris Schneider [facility] EXTRACTION, CATARACT, 2022-01-20 13:30:00 Padmini Jones [facility] WITH IOL INSERTION [facility] METABOLIC 2022-01-19 14:16:00 Adamaris Schneider C [facility] SARS-COV2/RT-PCR ([facility] & 2022-01-17 13:11:00 AhPadmini ahn [facility] REF LABS) [facility] REPORT OF PROCEDURE - 2021-12-03 12:44:42 [facility] ENDOSCOPY URL [facility] TISSUE EXAM 2021-12-03 12:29:00 [facility] COLONOSCOPY, WITH 2021-12-03 11:55:00 [facility] es POLYPECTOMY [facility] SARS-COV2/RT-PCR ([facility] & 2021-12-01 09:49:[address] [facility] REF LABS) [facility] Plan of Care Planned Activity Planned Date Details Comments Source Future Scheduled 2024-03-[address] [facility] Test 00:00:00 [facility] (12+) [code = Tobacco Cessation Counseling and Screening (12+)] Future Scheduled 2024-01-[address] [facility] Test 00:00:00 [facility] Scre[facility] (12+) [code = Tobacco Cessation Counseling and Screening (12+)] Future Scheduled 2023-12-[address] [facility] Test 00:00:00 [facility] Screening (12+) [code = Tobacco Cessation Counseling and Screening (12+)] Future Scheduled 2023-11-[address] [facility] Test 00:00:00 [facility] Screening (12+) [code = Tobacco Cessation Counseling and Screening (12+)] Future Scheduled 2023-09-[address] [facility] Test 00:00:00 [facility] Screening (12+) [code = Tobacco Cessation Counseling and Screening (12+)] Future Scheduled 2023-06-15 65+ [facility] 06:48:58 VACCINE (2 - PPSV23 if available, else PCV20) [code = 65+ PNEUMOCOCCAL VACCINE (2 - PPSV23 if available, else PCV20)] Future Scheduled 2023-06-15 [facility]ACCINE [facility] 06:48:58 [code = INFLUENZA VACCINE] Future Scheduled 2023-06-15 SHINGLES VACCINES (1 [facility] Test 06:48:58 of 2) [code = SHINGLES VACCINES (1 of 2)] Future Scheduled 2023-06-15 COVID-19 VACCINE (3 - [facility] Test 06:48:58 Pfizer series) [code = COVID-19 VACCINE (3 - Pfizer series)] Future Scheduled 2023-01-[address] [facility] Test 00:00:00 WELLNESS (YEAR 3 +) Medical Center [code = MEDICARE SUBSEQUENT WELLNESS (YEAR 3 +)] Future Scheduled 2023-01-[address] [facility] Test 00:00:00 WELLNESS (YEAR 3 +) Medical Center [code = MEDICARE SUBSEQUENT WELLNESS (YEAR 3 +)] Future Scheduled 2023-01-[address] [facility] Test 00:00:00 WELLNESS (YEAR 3 +) Medical Center [code = MEDICARE SUBSEQUENT WELLNESS (YEAR 3 +)] Future Scheduled 2023-01-[address] [facility] Test 00:00:00 WELLNESS (YEAR 3 +) Medical Center [code = MEDICARE SUBSEQUENT WELLNESS (YEAR 3 +)] Future Scheduled 2023-01-[address] [facility] Test 00:00:00 WELLNESS (YEAR 3 +) Medical Center [code = MEDICARE SUBSEQUENT WELLNESS (YEAR 3 +)] Future Scheduled 2022-11-[address] [facility] Test 00:00:00 (12+) [code = Medical Center DEPRESSION SCREENING (12+)] Future Scheduled 2022-11-13 FALLS RISK SCREENING [facility] Test 00:00:00 [code = FALLS RISK Medical C enter SCREENING] Future Scheduled 2022-03-13 COVID-19 VACCINE (4 - [facility] 00:[facility]:00 Booster for Pfizer Medical C enter series) [code = COVID-19 VACCINE (4 - Booster for Pfizer series)] Future Scheduled 2022-03-13 COVID-19 VACCINE (4 - [facility] Test 00:00:00 Booster for Pfizer Medical C enter series) [code = COVID-19 VACCINE (4 - Booster for Pfizer series)] Future Scheduled 2022-03-13 COVID-19 VACCINE (4 - [facility] 00:00:00 Booster for Pfizer Medical C enter series) [code = COVID-19 VACCINE (4 - Booster for Pfizer series)] Future Scheduled 2022-01-08 COVID-19 VACCINE (4 - [facility] 00:00:00 Booster for Pfizer Medical C enter series) [code = COVID-19 VACCINE (4 - Booster for Pfizer series)] Future Scheduled 2022-01-08 COVID-19 VACCINE (4 - [facility] 00:00:00 Booster for Pfizer Medical C enter series) [code = COVID-19 VACCINE (4 - Booster for Pfizer series)] Future Scheduled 1990 SHINGLES VACCINES ([address] [facility] Test 00:00:00 of 2) [code = SHINGLES Medic al Center VACCINES (1 of 2)] Future Scheduled 1990 SHINGLES VACCINES ([address] [facility] Test 00:00:00 of 2) [code = SHINGLES Medic al Center VACCINES (1 of 2)] Future Scheduled 1990 SHINGLES VACCINES ([address] [facility] Test 00:00:00 of 2) [code = SHINGLES Medic al Center VACCINES (1 of 2)] Future Scheduled 1990 SHINGLES VACCINES ([address] [facility] Test 00:00:00 of 2) [code = SHINGLES Medic al Center VACCINES (1 of 2)] Future Scheduled 1990 SHINGLES VACCINES ([address] [facility] Test 00:00:00 of 2) [code = SHINGLES Medic al Center VACCINES (1 of 2)] Future Scheduled 1959 DTAP/TDAP/TD VACCINES [facility] 00:00:00 (1 - Tdap) [code = Medical C enter DTAP/TDAP/TD VACCINES (1 - Tdap)] Future Scheduled 1959 DTAP/TDAP/TD VACCINES [facility] 00:00:00 (1 - Tdap) [code = Medical C enter DTAP/TDAP/TD VACCINES (1 - Tdap)] Future Scheduled 1959 DTAP/TDAP/TD VACCINES [facility] 00:00:00 (1 - Tdap) [code = Medical C enter DTAP/TDAP/TD VACCINES (1 - Tdap)] Future Scheduled 1959 DTAP/TDAP/TD VACCINES [facility] 00:00:00 (1 - Tdap) [code = Medical C enter DTAP/TDAP/TD VACCINES (1 - Tdap)] Future Scheduled 1959 DTAP/TDAP/TD VACCINES [facility] 00:00:00 (1 - Tdap) [code = Medical C enter DTAP/TDAP/TD VACCINES (1 - Tdap)] Encounters Start End Encounter Admission Attending Care Care Encounter Source Date/Time Date/Time Type Type Clinicians Facility Department ID 2022-09-05 Outpatient [facility] Surgery [id number] [facility] 08:16:48 TRIPP 2021-11-09 Outpatient [facility] Surgery [id number] [facility] 15:03:06 TRIPP 2021-08-20 Outpatient [facility] [id number] [facility] 17:45:17 [facility] 2023-10-20 2023-10-20 Outpatient LORRAINE SCHNEIDER [facility] [id number] 00:00:00 00:00:00 [facility] 2023-08-29 2023-08-29 Outpatient DAYANARA SCHNEIDER [id number] [facility] 11:15:00 11:15:00 QUOCDAI Seybol d 2023-05-23 2023-05-23 Outpatient LORRAINE SCHNEIDER [facility] [id number] 10:53:26 11:30:08 [facility] 2023-04-21 2023-04-21 Outpatient LORRAINE SCHNEIDER [facility] [id number] St 13:32:06 14:11:04 [facility] 2023-03-16 2023-03-16 Outpatient EL NANCY SLE Surgery [id number] [facility]H 11:11:00 14:53:00 TRIPP 2023-03-16 2023-03-16 Anesthesia Jackson-Eng [facility] [id number] [facility] 13:13:00 13:54:00 Event Ilene coronado [facility] 2023-03-16 2023-03-16 Surgery Nancy [facility] [id number] 12:45:00 13:15:00 [facility] 2023-03-16 2023-03-16 Travel [facility] [id number] [facility] 00:00:00 00:00:00 [facility] 2023-03-07 2023-03-07 Outpatient EL SLE SLE [id number] [facility]H 14:41:39 23:59:00 2023-03-07 2023-03-07 [facility] [id number] 11:10:00 23:59:00 [facility] 2023-03-07 2023-03-07 Travel [facility] [id number] [facility] 00:00:00 00:00:00 [facility] 2023-03-02 2023-03-02 Outpatient DAYANARA SCHNEIDER DAYANARA [id number] Dayanara 10:00:00 10:00:00 QUOCDAI Seybol d 2023-02-23 2023-02-23 Outpatient MARY GRACE DAYANARA DAYANARA [id number] [facility] 11:15:00 11:15:00 QUOCDAI Seybol d 2023-02-20 2023-02-20 [facility] [id number] 00:00:00 00:00:00 [facility] 2023-02-03 2023-02-03 Outpatient DAYANARA SANCHEZ [id number] [facility] 15:00:00 15:00:00 Seybol d 2023-02-03 2023-02-03 Outpatient DAYANARA DAYANARA [id number] [facility] 14:00:00 14:00:00 Seybol d 2023-02-03 2023-02-03 Outpatient DAYANARA SANCHEZ [id number] [facility] 13:30:00 13:30:00 Seybol d 2023-02-03 2023-02-03 Outpatient DAYANARA DAYANARA [id number] [facility] 12:30:00 12:30:00 Seybol d 2023-01-26 2023-01-26 [facility] [id number] 00:00:00 00:00:00 [facility] 2023-01-25 2023-01-25 [facility] [id number] [facility] 09:45:03 23:59:00 ADAMARIS 2023-01-25 2023-01-25 [facility] [id number] 09:45:03 23:59:00 Encounter [facility] 2023-01-23 2023-01-23 [facility] [id number] 00:00:00 00:00:00 Orders [facility] 2023-01-20 2023-01-20 Office [facility] [id number] 10:00:00 10:19:47 Visit [facility] 2023-01-20 2023-01-20 Travel [facility] [id number] [facility] 00:00:00 00:00:00 [facility] 2023-01-11 2023-01-11 [facility] [id number] 09:30:00 09:30:00 [facility] 2023-01-11 2023-01-11 Outpatient SLE SLE [id number] [facility] 00:00:00 00:00:00 2023-01-11 2023-01-11 Travel [facility] [id number] [facility] 00:00:00 00:00:00 [facility] 2023-01-04 2023-01-04 Outpatient DAYANARA NELSON [id number] [facility]anara 00:00:00 00:00:00 TRIANDA Seybol d 2023-01-04 2023-01-04 [facility] [id number] 00:00:00 00:00:00 [facility] 2023-01-03 2023-01-03 Outpatient DAYANARA SCHNEIDER [id number] [facility] 10:00:00 10:00:00 QUOCDAI Seybol d 2023-01-03 2023-01-03 Outpatient DAYANARA NELSON [id number] [facility] 00:00:00 00:00:00 TRIANDA Seybol d 2022-12-22 2022-12-22 [facility] [id number] 00:00:00 00:00:00 [facility] 2022-12-01 2022-12-01 [facility] [id number] 00:00:00 00:00:00 [facility] 2022-11-29 2022-11-29 Orders Mary Grace [facility] [id number] 00:00:00 00:00:00 Only [facility] 2022-11-29 2022-11-29 [facility] [id number] 00:00:00 00:00:00 [facility] 2022-11-25 2022-11-25 Office [facility] [id number] 13:45:00 14:12:00 Visit [facility] 2022-11-15 2022-11-15 [facility] [id number] 00:00:00 00:00:00 [facility] 2022-11-13 2022-11-13 [facility] [id number] 00:00:00 00:00:00 [facility] 2022-11-13 2022-11-13 [facility] [id number] 00:00:00 00:00:00 [facility] '[place]' Fults 2022-11-01 2022-11-01 [facility] [id number] 00:00:00 00:00:00 [facility] Fults 2022-10-23 2022-10-23 [facility] [id number] 00:00:00 00:00:00 [facility] 2022-10-23 2022-10-23 [facility] [id number] 00:00:00 00:00:00 [facility] '[place]' Fults 2022-10-20 2022-10-20 [id number] 00:00:00 00:00:00 [facility] '[place]' Fults 2022-10-18 2022-10-18 [facility] [id number] 00:00:00 00:00:00 [facility] 2022-10-11 2022-10-11 [facility] [id number] 00:00:00 00:00:00 Only [facility] 2022-10-07 2022-10-07 [facility] [id number] 00:00:00 00:00:00 [facility] '[facility] 2022-10-05 2022-10-05 [place] [id number] 00:00:00 00:00:00 [facility] 2022-10-04 2022-10-04 Hospital [facility] [id number] 10:57:48 23:59:00 Encounter [facility] 2022-10-04 2022-10-04 Outpatient LORRAINE SCHNEIDER [facility] [id number] [facility] 10:57:48 23:59:00 [facility] 2022-10-03 2022-10-03 [facility] [id number] 00:00:00 00:00:00 [facility] 2022-10-03 2022-10-03 Outside [facility] [id number] 00:00:00 00:00:00 Orders [facility] 2022-09-27 2022-09-27 Outpatient DAYANARA NELSON [id number] [facility]ara 00:00:00 00:00:00 DAVE Seaaronol d 2022-09-26 2022-09-26 [place] [id number] 00:00:00 00:00:00 [facility] 2022-09-23 2022-09-23 [facility] [id number] 00:00:00 00:00:00 [facility] 2022-09-22 2022-09-22 [place] [facility] [id number] 00:00:00 00:00:00 [facility] 2022-09-212022-09-21 Office LORRAINE Schneider [facility] [id number] 14:00:00 14:08:26 Visit [facility] 2022-09-21 2022-09-21 [facility] [id number] [facility] 00:00:00 00:00:00 ADAMARIS 2022-09-13 2022-09-13 [place] Mary Grace [facility] [id number] 00:00:00 00:00:00 [facility] 2022-09-07 2022-09-07 Outpatient SONIDO BUNCH [facility] [id number] [facility] 13:14:59 23:59:00 [facility] 2022-09-07 2022-09-07 [facility] [id number] 13:00:00 23:59:00 Encounter [facility] 2022-09-07 2022-09-07 Office [facility] [id number] 12:15:00 12:49:20 Visit [facility] 2022-09-07 2022-09-07 Outside Mary Grace [facility] [id number] 00:00:00 00:00:00 Orders [facility] 2022-09-07 2022-09-07 Travel [facility] [id number] [facility] 00:00:00 00:00:00 [facility] 2022-08-14 2022-08-14 [facility] [id number] 00:00:00 00:00:00 [facility] 2022-08-03 2022-08-03 [facility] [id number] 00:00:00 00:00:00 [facility] 2022-07-28 2022-07-28 Outpatient DAYANARA SCHNEIDER [id number] Dayanara 10:15:00 10:15:00 QUOCDAI Seybol d 2022-07-22 2022-07-22 Office Mary Grace [facility] [id number] 12:30:00 13:00:00 Visit [facility] 2022-07-22 2022-07-22 Travel [facility] [id number] [facility] 00:00:00 00:00:00 [facility] 2022-06-15 2022-06-15 Outpatient DAYANARA SCHNEIDER [id number] [facility] 13:15:00 13:15:00 QUOCDAI Seybol d 2022-04-20 2022-04-20 Outpatient FRANCO_Miguel Aandrzej AOSM AOSM [id number] Kaila 11:32:00 11:32:00 _Iris [id number] [facility] 2022-03-15 2022-03-15 Outpatient DAYANARA FLANNERY [id number] [facility] 13:00:00 13:00:00 JINU Seybol d 2022-03-15 2022-03-15 Outpatient LAB45 DAYANARA SANCHEZ [id number] [facility] 11:45:00 11:45:00 Seybol d 2022-03-15 2022-03-15 Outpatient DAYANARA SCHNEIDER [id number] [facility] 11:15:00 11:15:00 QUOCDAI Seybol d 2022-02-24 2022-02-24 Outpatient DAYANARA NELSON [id number] [facility] 00:00:00 00:00:00 TRIANDA Seybol d 2022-02-22 2022-02-22 [place]is Mary Grace [facility] [id number] HAMIDA [place] 00:00:00 00:00:00 [facility] 2022-02-07 2022-02-07 [facility] [id number] HAMIDA [place] 00:00:00 00:00:00 [facility] 2022-01-30 2022-01-30 [facility] [id number] [facility] 00:00:00 00:00:00 Quocdai [facility] '[facility] 2022-01-30 2022-01-30 Refill Mary Grace, [facility] [id number] 00:00:00 00:00:00 [facility] 2022-01-28 2022-01-28 [facility] [id number] 00:00:00 00:00:00 [facility] 2022-01-20 2022-01-20 Hospital [facility] [id number] 10:51:00 14:44:00 Encounter [facility] 2022-01-20 2022-01-20 Outpatient [facility] Surgery [id number] [facility] 10:51:00 14:44:00 [facility] 2022-01-20 2022-01-20 Anesthesia Tinglukasz [facility] [id number] 13:40:00 14:08:00 Event [facility] 2022-01-20 2022-01-20 Surgery [facility] [id number] 12:40:00 13:10:00 [facility] 2022-01-20 2022-01-20 Travel [facility] [id number] [facility] 00:00:00 00:00:00 [facility] 2022-01-19 2022-01-19 Outpatient EL SLE SLE [id number] [facility] 14:57:53 23:59:00 2022-01-19 2022-01-19 [facility] [id number] 14:15:00 23:59:00 Encounter [facility] 2022-01-19 2022-01-19 Office Mary Grace [facility] [id number] 13:30:00 14:03:14 Visit [facility] 2022-01-19 2022-01-19 Travel [facility] [id number] [facility] 00:00:00 00:00:00 [facility] 2022-01-17 2022-01-17 Hospital [facility] [id number] 13:10:25 23:59:00 Encounter [facility] 2022-01-17 2022-01-17 Outpatient EL SLE SLEH [id number] [facility] 13:10:25 23:59:00 2021-12-25 2021-12-25 [facility] [id number] 00:00:00 00:00:00 [facility] 2021-12-03 2021-12-03 Hospital [facility] [id number] 09:31:00 13:44:00 Encounter [facility] 2021-12-03 2021-12-03 Outpatient [facility] Surgery [id number] [facility] 09:31:00 13:44:00 [facility] 2021-12-03 2021-12-03 Anesthesia Anni Still [facility] [id number] [facility] 12:00:00 12:45:00 Event AlistairEstephania reynaga Kathy [facility] 2021-12-03 2021-12-[address] [facility] [id number] 11:40:00 12:10:00 [facility] 2021-12-03 2021-12-03 Travel [facility] [id number] [facility] 00:00:00 00:00:00 [facility] 2021-12-02 2021-12-02 Outpatient EL SLEH SLEH [id number] [facility] 12:59:38 23:59:00 2021-12-02 2021-12-02 [facility] [id number] 11:00:00 23:59:00 Encounter [facility] 2021-12-02 2021-12-02 Outpatient EL SLEH SLEH [id number] [facility] 00:00:00 00:00:00 2021-12-02 2021-12-02 Travel [facility] [id number] [facility] 00:00:00 00:00:00 [facility] 2021-12-012021-12-01 [facility] LORRAINE Cruz, [facility] [id number] 09:44:16 23:59:00 Encounter [facility] 2021-12-01 2021-12-01 Outpatient LORRAINE CRUZ [facility] [id number] SLE 09:44:16 23:59:00 TRIPP 2021-08-31 2021-08-31 Outpatient MARY GRACE, [facility] [id number] 11:37:24 12:34:08 [facility] 2021-08-31 2021-08-31 Outpatient PARK, [facility] [id number] 10:11:34 11:15:08 [facility] 2021-06-01 2021-06-01 Outpatient MARY GRACE, [facility] [id number] 00:00:00 00:00:00 [facility] 2021-06-01 2021-06-01 Outpatient LORRAINE SCHNEIDER, [facility] [id number] [facility] 00:00:00 00:00:00 [facility] 2021-02-23 2021-02-23 Outpatient PARK, [facility] [id number] 00:00:00 00:00:00 [facility] 2021-02-23 2021-02-23 Outpatient MARY GRACE, [facility] [id number] 00:00:00 00:00:00 [facility] 2021-01-10 2021-01-10 Outpatient JANIE, [facility] [id number] [place] 00:00:00 00:00:00 OBIE [address] 2020-12-20 2020-12-20 Outpatient ASKED, NO [facility] [id number] [place] 00:00:00 00:00:[address] 2020-12-02 2020-12-02 [facility] [id number] [facility] 00:00:00 00:00:00 2020-11-16 2020-11-16 Outpatient ERA, [facility] [id number] 00:00:00 00:00:00 [facility] 2020-08-25 2020-08-25 Outpatient MEXIA, [facility] [id number] 00:00:00 00:00:00 [facility] 2020-08-25 2020-08-25 Outpatient MEXIA, [facility] [id number] 00:00:00 00:00:00 ORAL [facility] 2020-06-03 2020-06-03 Outpatient [facility] [id number] 00:00:00 00:00:00 [facility] 2020-02-25 2020-02-25 Outpatient [facility] [id number] 11:13:24 11:13:24 [id number] [facility] Results Test Description Test Time Test Comments Results Result Comments Source TISSUE EXAM 2023-03-20 Surgical Pathology 09:03:33 Report Case: [id number] Authorizing Provider: Tripp Cruz MD Collected: 03/16/2023 01:28 PM Ordering Location: [facility] Received: 03/17/2023 07:58 AM SERVICES Pathologist: Emmett Chance MD Specimens: A) - Polyp, Colon - Right/Ascending, x 3 B) - Polyp, Colon - Transverse A. Ascending colon, polyps (x3), polypectomies:- Fragments of tubular adenomas.B. Transverse colon, polyp, polypectomy- Tubular adenoma. Signing Pathologist Direct Phone Line: [phone] icay signed by Emmett Chance MD on 03/20/2023 at 9:03 AMEndoscopy report was reviewed. [id number] [id number] cancer screening.A. Polyp, Colon - Right/AscendingRecei kaylyn in formalin labeled with the patient's name, medical record number and "ascending colon polyp" are multiple rios-yellow to rios-brown soft tissue fragments ranging in size from 0.1-0.8 cm. The specimen is entirely submitted as follows:Section codeA1: Multiple smaller fragmentsA2: 1 fragment, inked blue and bisectedB. Polyp, Colon - TransverseReceived in formalin labeled with the patient's name, medical record number and "transverse colon polyp" are multiple rios-yellow to iros-brown soft tissue fragments ranging in size from 0.1-0.9 cm, which are submitted in toto in B1Wally Campo Microscopic assessment substantiates the above diagnosis. [facility], Department of Pathology, [address] [place] [address] 84[address], [facility], [facility], [address] [place] [address] 08366, [facility], Department of Pathology, [address] [place] [address] 90793, Comprehensive metabolic panel 2023-01-26 07:10:00 Test Item Value Reference Range Interpretation Comme nts Glucose, Serum (test code 101 mg/dL 70-99 H = 20110315) BUN (test code = 20110316) 17 mg/dL 8-27 Creatinine, Serum (test 1.22 mg/dL 0.76-1.27 code = 20110408) EGFR (test code = 59 mL/min/1.73 >=59 L 0734007793) BUN/Creatinine Ratio (test 14 10-24 code = 0761366) Sodium, Serum (test code = 140 mmol/L 134-657 9482194) Potassium, Serum (test 3.9 mmol/L 3.5-5.2 code = 20110331) Chloride, Serum (test code 100 mmol/L 96-106 = 20110402) Carbon Dioxide, Total 28 mmol/L 20-29 (test code = 1109703) Calcium, Serum (test code 9.2 mg/dL 8.6-10.2 = 20110313) Protein, Total, Serum 6.4 g/dL 6.0-8.5 (test code = 9630070) Albumin, Serum (test code 4.0 g/dL 3.6-4.6 = 5050273) Globulin, Total (test code 2.4 g/dL 1.5-4.5 = ) A/G Ratio (test code = 1.7 1.2-2.2 ) Bilirubin, Total (test 1.2 mg/dL 0.0-1.2 code = 3576255) Alkaline Phosphatase, S 79 See_Comment [Au tomated message] (test code = 6768-6) The sys tem which generated this result transmitted ref erence range: 44 - 121 IU/L. The reference r laura was not used to int erpret this result as normal/abnormal . AST (SGOT) (test code = 14 See_Comment [Au tomated message] 20110326) The system [employer] generated this result transmitted ref erence range: 0 - 40 I U/L. The reference range was not used to interpr et this result as normal/abnormal . ALT (SGPT) (test code = 14 See_Comment [Au tomated message] ) The system [employer] generated this result transmitted ref erence range: 0 - 44 I U/L. The reference range was not used to interpr et this result as normal/abnormal . ROYAL (test code = ROYAL) Performed at: [address] [place] [address] [id number] Director: Mariano Ruano MD, Phone: [phone] Lab Interpretation (test Abnormal code = 84362-6) [facility] Area[facility] [id number] 07:10:00 Test Item Value Reference Range Interpretation Comments Cholesterol, Total (test 124 mg/dL 100-199 code = 2093-3) Triglycerides (test code 48 mg/dL 0-149 = 2571-8) HDL Cholesterol (test 49 mg/dL >=39 code = 2085-9) VLDL Cholesterol Harika 11 mg/dL 5-40 (test code = 97472-6) LDL Calculated (test 64 mg/dL 0-99 code = 68446-0) ROYAL (test code = ROYAL) Performed at: [address] [place] [address] [id number] Director: Mariano Ruano MD, Phone: [phone] [facility] AreaVitamin [id number] 07:10:00 Test Item Value Reference Range Interpretation Comments Vitamin B12 (test 804 pg/mL 232-1245 code = 3553799) ROYAL (test code = ROYAL) Performed at: [address] [place] [address] [id number] Director: Mariano Ruano MD, Phone: [phone] [facility] AreaPSA2023-03-16 07:10:00 Test Item Value Reference Range Interpretation Comments Prostate 2.5 ng/mL 0.0-4.0 Vilma ECLIA Specific Ag, methodology.Acc ording Serum (test to the Bulgarian code = 7121272) Urological Association, Se rum PSA shoulddecrease and remain at undet ectable levels after radicalprostate ctomy. The AUA defines biochemical rec urrence as an initialPS A value 0.2 ng/mL or gr eater followed by a subsequent confirmatoryPSA value 0.2 ng/mL or greater.Values obtained with different assay methods or kits cannot be usedinterchange ably. Results cannot be interpreted as absolute eviden ceof the presence or absence of heike gnant disease. ROYAL (test code Performed at: 01 = ROYAL) - LabCoFormerly [facility] [id number] [place], [place] [id number] Director: Mariano Ruano MD, Phone: [phone] [facility] AreaCB w/PLT Count Auto [id number] 07:10:00 Test Item Value Reference Range Interpretation Comments WBC (test code = 6.6 See_Comment [Automated ) message] The system which generated this result transmitted reference range : 3.4 - 10.8 x10E3/uL. The reference range was not used to interpret this result as normal/abnormal . RBC (test code = 4.68 See_Comment [Automated 903-3) message] The system which generated this result transmitted reference range : 4.14 - 5.80 x10E6/uL. The reference range was not used to interpret this result as normal/abnormal . Hemoglobin (test code 14.1 g/dL 13.0-17.7 = ) Hematocrit (test code 42.6 % 37.5-51.0 = ) MCV (test code = 91 fL 79-97 ) MCH (test code = 30.1 pg 26.6-33.0 ) MCHC (test code = 33.1 g/dL 31.5-35.7 ) RDW (test code = 12.8 % 11.6-15.4 ) Platelets (test code 124 See_Comment L [Autom ated = ) message] The system which generated this result transmitted reference range : 150 - 450 x10E3/uL. The reference range was not used to interpret this result as normal/abnormal . % Neutros (test code 67 % Not Estab. = ) % Lymphs (test code = 21 % Not Estab. ) % Monos (test code = 8 % Not Estab. ) % Eos (test code = 3 % Not Estab. ) % Baso (test code = 1 % Not Estab. ) # Neutros (test code 4.5 See_Comment [Autom ated = ) message] The system which generated this result transmitted reference range : 1.4 - 7.0 x10E3/uL. The reference range was not used to interpret this result as normal/abnormal . # Lymphs (test code = 1.4 See_Comment [Auto mated ) message] The system which generated this result transmitted reference range : 0.7 - 3.1 x10E3/uL. The reference range was not used to interpret this result as normal/abnormal . # Monos (test code = 0.5 See_Comment [Autom ated ) message] The system which generated this result transmitted reference range : 0.1 - 0.9 x10E3/uL. The reference range was not used to interpret this result as normal/abnormal . # Eos (test code = 0.2 See_Comment [Automat ed ) message] The system which generated this result transmitted reference range : 0.0 - 0.4 x10E3/uL. The reference range was not used to interpret this result as normal/abnormal . Baso (Absolute) (test 0.0 See_Comment [Auto mated code = ) message] The system which generated this result transmitted reference range : 0.0 - 0.2 x10E3/uL. The reference range was not used to interpret this result as normal/abnormal . % Immature Grans 0 % Not Estab. (test code = ) # Immature Grans 0.0 See_Comment [Automated (test code = ) messag e] The system which generated this result transmitted reference range : 0.0 - 0.1 x10E3/uL. The reference range was not used to interpret this result as normal/abnormal . ROYAL (test code = ROYAL) Performed at: [address] [place] [address] [place] [id number] Director: Mariano Ruano MD, Phone: [phone] Lab Interpretation Abnormal (test code = 14819-8) [facility] [facility] AreaTSH/Free T4 If [id number] 07:10:00 Test Item Value Reference Range Interpretation Comments TSH (test code 2.760 See_Comment [Automated m essage] = ) The system Digital Shadows generated this result transmit more reference range : 0.450 - 4.50 uI U/mL. The reference r laura was not used to interpret this result as normal/abnormal . ROYAL (test code Performed at: 01 - = ROYAL) [facility] [address] [id number] Director: Mariano Ruano MD, Phone: [phone] [facility] AreaComprehensive metabolic [id number] 07:10:00 Test Item Value Reference Range Interpretation Comments Glucose, Serum (test 101 mg/dL 70-99 H code = 8362980) BUN (test code = 17 mg/dL 8-27 20110316) Creatinine, Serum 1.22 mg/dL 0.76-1.27 (test code = 0571050) EGFR (test code = 59 mL/min/1.73 >=59 L 9878110559) BUN/Creatinine Ratio 14 10-24 (test code = 7296602) Sodium, Serum (test 140 mmol/L 134-144 code = 8433473) Potassium, Serum 3.9 mmol/L 3.5-5.2 (test code = 4058152) Chloride, Serum (test 100 mmol/L 96-106 code = 8970753) Carbon Dioxide, Total 28 mmol/L 20-29 (test code = 9222032) Calcium, Serum (test 9.2 mg/dL 8.6-10.2 code = 5085428) Protein, Total, Serum 6.4 g/dL 6.0-8.5 (test code = 6782356) Albumin, Serum (test 4.0 g/dL 3.6-4.6 code = 20110321) Globulin, Total (test 2.4 g/dL 1.5-4.5 code = 2168164) A/G Ratio (test code 1.7 1.2-2.2 = ) Bilirubin, Total 1.2 mg/dL 0.0-1.2 (test code = 9554421) Alkaline Phosphatase, 79 See_Comment [Auto mated S (test code = message] The 68-6) system which generated this result transmitted reference range : 44 - 121 IU/L. The reference range was not used to interpr et this result as normal/abnormal . AST (SGOT) (test code 14 See_Comment [Auto mated = 20110326) message] The system which generated this result transmitted reference range : 0 - 40 IU/L. Th e reference range was not used to interpret this result as normal/abnormal . ALT (SGPT) (test code 14 See_Comment [Auto mated = ) message] The system which generated this result transmitted reference range : 0 - 44 IU/L. Th e reference range was not used to interpret this result as normal/abnormal . ROYAL (test code = ROYAL) Performed at: [address] [place] [address] [id number] Director: Mariano Ruano MD, Phone: [phone] Lab Interpretation Abnormal (test code = 36209-4) [facility] AreaLipid [id number] 07:10:00 Test Item Value Reference Range Interpretation Comments Cholesterol, Total (test 124 mg/dL 100-199 code = 2093-3) Triglycerides (test code 48 mg/dL 0-149 = 2571-8) HDL Cholesterol (test 49 mg/dL >=39 code = 2085-9) VLDL Cholesterol Harika 11 mg/dL 5-40 (test code = 22817-2) LDL Calculated (test 64 mg/dL 0-99 code = 26770-3) ROYAL (test code = ROYAL) Performed at: [facility] [id number] Director: Mariano Ruano MD, Phone: [phone] [facility] AreaVitamin [id number] 07:10:00 Test Item Value Reference Range Interpretation Comments Vitamin B12 (test 804 pg/mL 232-1245 code = 7797799) ROYAL (test code = ROYAL) Performed at: [address] [place] [address] [id number] Director: Mariano Ruano MD, Phone: [phone] [facility] AreaPSA2023-03-16 07:10:00 Test Item Value Reference Range Interpretation Comments Prostate 2.5 ng/mL 0.0-4.0 Vilma ECLIA Specific Ag, methodology.Acc ording Serum (test to the Bulgarian code = 2209014) Urological Association, Se rum PSA shoulddecrease and remain at undet ectable levels after radicalprostate ctomy. The AUA defines biochemical rec urrence as an initialPS A value 0.2 ng/mL or gr eater followed by a subsequent confirmatoryPSA value 0.2 ng/mL or greater.Values obtained with different assay methods or kits cannot be usedinterchange ably. Results cannot be interpreted as absolute eviden ceof the presence or absence of heike gnant disease. ROYAL (test code Performed at: 01 = ROYAL) - [facility] [id number] [place], [place] [id number] Director: Mariano Ruano MD, Phone: [phone] [facility] AreaCBC w/PLT Count Auto [id number] 07:10:00 Test Item Value Reference Range Interpretation Comments WBC (test code = 6.6 See_Comment [Automated ) message] The system which generated this result transmitted reference range : 3.4 - 10.8 x10E3/uL. The reference range was not used to interpret this result as normal/abnormal . RBC (test code = 4.68 See_Comment [Automated 376-0) message] The system which generated this result transmitted reference range : 4.14 - 5.80 x10E6/uL. The reference range was not used to interpret this result as normal/abnormal . Hemoglobin (test code 14.1 g/dL 13.0-17.7 = ) Hematocrit (test code 42.6 % 37.5-51.0 = ) MCV (test code = 91 fL 79-97 ) MCH (test code = 30.1 pg 26.6-33.0 ) MCHC (test code = 33.1 g/dL 31.5-35.7 ) RDW (test code = 12.8 % 11.6-15.4 ) Platelets (test code 124 See_Comment L [Autom ated = ) message] The system which generated this result transmitted reference range : 150 - 450 x10E3/uL. The reference range was not used to interpret this result as normal/abnormal . % Neutros (test code 67 % Not Estab. = ) % Lymphs (test code = 21 % Not Estab. ) % Monos (test code = 8 % Not Estab. ) % Eos (test code = 3 % Not Estab. ) % Baso (test code = 1 % Not Estab. ) # Neutros (test code 4.5 See_Comment [Autom ated = ) message] The system which generated this result transmitted reference range : 1.4 - 7.0 x10E3/uL. The reference range was not used to interpret this result as normal/abnormal . # Lymphs (test code = 1.4 See_Comment [Auto mated ) message] The system which generated this result transmitted reference range : 0.7 - 3.1 x10E3/uL. The reference range was not used to interpret this result as normal/abnormal . # Monos (test code = 0.5 See_Comment [Autom ated ) message] The system which generated this result transmitted reference range : 0.1 - 0.9 x10E3/uL. The reference range was not used to interpret this result as normal/abnormal . # Eos (test code = 0.2 See_Comment [Automat ed ) message] The system which generated this result transmitted reference range : 0.0 - 0.4 x10E3/uL. The reference range was not used to interpret this result as normal/abnormal . Baso (Absolute) (test 0.0 See_Comment [Auto mated code = ) message] The system which generated this result transmitted reference range : 0.0 - 0.2 x10E3/uL. The reference range was not used to interpret this result as normal/abnormal . % Immature Grans 0 % Not Estab. (test code = ) # Immature Grans 0.0 See_Comment [Automated (test code = ) messag e] The system which generated this result transmitted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 Phosphatase, 72 See_Comment [Auto mated S (test code = message] The 6768-6) system which generated this result transmitted reference range : 44 - 121 IU/L. The reference range was not used to interpr et this result as normal/abnormal . AST (SGOT) (test code 23 See_Comment [Auto mated = 20110326) message] The system which generated this result transmitted reference range : 0 - 40 IU/L. Th e reference range was not used to interpret this result as normal/abnormal . ALT (SGPT) (test code 18 See_Comment [Auto mated = ) message] The system which generated this result transmitted reference range : 0 - 44 IU/L. Th e reference range was not used to interpret this result as normal/abnormal . ROYAL (test code = ROYAL) Performed at: [address] [place] [address] [id number] Director: Mariano Ruano MD, Phone: [phone] Lab Interpretation Abnormal (test code = 12460-4) [facility] 04:37:42 Test Item Value Reference Range Interpretation Comments SARS-COV2/RT-PCR (test Negative Negative code = 36719-8) ROYAL (test code = ROYAL) Negative result for this test determines that SARS-CoV-2 RNA was not present in the specimen above the Limit of Detection (LOD). However, Negative results do not preclude SARS-CoV-2 infection and should not be used as the sole basis for treatment or patient management decisions. Negative results must be combined with clinical observations, patient history, and epidemiological information. A false negative result may occur if a specimen is improperly collected, transported, or handled. A false negative result should be considered if patient's recent exposures or clinical presentation indicate that COVID-19 (SARS-CoV-2) is likely and diagnostic tests for other causes of illness are negative. Re-testing should be considered in cases of suspected false negatives. The limit of detection for this assay is 100 copies/mL. This SARS-CoV-2 test is a real-time RT_PCR test intended for the qualitative detection of nucleic acid from SARS-CoV-2 in a nasopharyngeal swab specimen collected from individuals suspected of COVID-19 by their healthcare provider. This test has not been Food and Drug Administration (FDA) cleared or approved. This is a modified version of an approved Emergency Use Authorization (EUA) and is in the process of review by the FDA. Once authorized by the FDA, the issued EUA will be effective until the declaration that circumstances exist justifying the authorization of the emergency use of in vitro diagnostic tests for detection and/or diagnosis of COVID-19 is terminated under Section 564(b)(2) of the Act or the EUA is revoked under Section 564(g) of the Act. Testing was performed using the [employer] SARS-CoV-2 assay. Fact Sheet for Healthcare Providers:https://www.chilo rhoadesOasys Mobile/kasandra/RT SARS-CoV-2 HCP Fact Sheet 51-848244.pdf Fact Sheet for Healthcare Patients:https://www.hyun christiansonNetology/kasandra/RT SARS-CoV-2 Patient Fact Sheet EN 51-768782X2.pdf Lab Interpretation Normal (test code = 08413-3) [facility]2022-01-18 04:37:42 Test Item Value Reference Range Interpretation Comments SARS-COV2/RT-PCR (test Negative Negative code = 21931-0) ROYAL (test code = ROYAL) Negative result for this test determines that SARS-CoV-2 RNA was not present in the specimen above the Limit of Detection (LOD). However, Negative results do not preclude SARS-CoV-2 infection and should not be used as the sole basis for treatment or patient management decisions. Negative results must be combined with clinical observations, patient history, and epidemiological information. A false negative result may occur if a specimen is improperly collected, transported, or handled. A false negative result should be considered if patient's recent exposures or clinical presentation indicate that COVID-19 (SARS-CoV-2) is likely and diagnostic tests for other causes of illness are negative. Re-testing should be considered in cases of suspected false negatives. The limit of detection for this assay is 100 copies/mL. This SARS-CoV-2 test is a real-time RT_PCR test intended for the qualitative detection of nucleic acid from SARS-CoV-2 in a nasopharyngeal swab specimen collected from individuals suspected of COVID-19 by their healthcare provider. This test has not been Food and Drug Administration (FDA) cleared or approved. This is a modified version of an approved Emergency Use Authorization (EUA) and is in the process of review by the FDA. Once authorized by the FDA, the issued EUA will be effective until the declaration that circumstances exist justifying the authorization of the emergency use of in vitro diagnostic tests for detection and/or diagnosis of COVID-19 is terminated under Section 564(b)(2) of the Act or the EUA is revoked under Section 564(g) of the Act. Testing was performed using the [employer] SARS-CoV-2 assay. Fact Sheet for Healthcare Providers:https://www.chilo rhoadesaustin/kasandra/RT SARS-CoV-2 HCP Fact Sheet 51-704685.pdf Fact Sheet for Healthcare Patients:https://www.hyun christiansonNetology/kasandra/RT SARS-CoV-2 Patient Fact Sheet EN 51-793961H5.pdf Lab Interpretation Normal (test code = 03179-6) [facility]2022-01-18 04:37:42 Test Item Value Reference Range Interpretation Comments SARS-COV2/RT-PCR (test Negative Negative code = 50735-7) ROYAL (test code = ROYAL) Negative result for this test determines that SARS-CoV-2 RNA was not present in the specimen above the Limit of Detection (LOD). However, Negative results do not preclude SARS-CoV-2 infection and should not be used as the sole basis for treatment or patient management decisions. Negative results must be combined with clinical observations, patient history, and epidemiological information. A false negative result may occur if a specimen is improperly collected, transported, or handled. A false negative result should be considered if patient's recent exposures or clinical presentation indicate that COVID-19 (SARS-CoV-2) is likely and diagnostic tests for other causes of illness are negative. Re-testing should be considered in cases of suspected false negatives. The limit of detection for this assay is 100 copies/mL. This SARS-CoV-2 test is a real-time RT_PCR test intended for the qualitative detection of nucleic acid from SARS-CoV-2 in a nasopharyngeal swab specimen collected from individuals suspected of COVID-19 by their healthcare provider. This test has not been Food and Drug Administration (FDA) cleared or approved. This is a modified version of an approved Emergency Use Authorization (EUA) and is in the process of review by the FDA. Once authorized by the FDA, the issued EUA will be effective until the declaration that circumstances exist justifying the authorization of the emergency use of in vitro diagnostic tests for detection and/or diagnosis of COVID-19 is terminated under Section 564(b)(2) of the Act or the EUA is revoked under Section 564(g) of the Act. Testing was performed using the [employer] SARS-CoV-2 assay. Fact Sheet for Healthcare Providers:https://www.chilo rhoadesaustin/kasandra/RT SARS-CoV-2 HCP Fact Sheet 51-799992.pdf Fact Sheet for Healthcare Patients:https://www.hyun christiansonNetology/kasandra/RT SARS-CoV-2 Patient Fact Sheet EN 51-418786D0.pdf Lab Interpretation Normal (test code = 39732-1) [facility]2022-01-18 04:37:42 Test Item Value Reference Range Interpretation Comments SARS-COV2/RT-PCR (test code = Negative Negative 6848024) Negative result for this test determines that SARS-CoV-2 RNA was not present in the specimen above the Limit of Detection (LOD). However, Negative results do not preclude SARS-CoV-2 infection and should not be used as the sole basis for treatment or patient management decisions. Negative results must be combined with clinical observations, patient history, and epidemiological information. A false negative result may occur if a specimen is improperly collected, transported, or handled. A false negative result should be considered if patient's recent exposures or clinical presentation indicate that COVID-19 (SARS-CoV-2) is likely and diagnostic tests for other causes of illness are negative. Re-testing should be considered in cases of suspected false negatives.The limit of detection for this assay is 100 copies/mL.This SARS-CoV-2 test is a real-time RT_PCR test intended for the qualitative detection of nucleic acid from SARS-CoV-2 in a nasopharyngeal swab specimen collected from individuals suspected of COVID-19 by their healthcare provider.This test has not been Food and Drug Administration (FDA) cleared or approved. This is a modified version of an approved Emergency Use Authorization (EUA) and is in the process of review by the FDA. Once authorized by the FDA, the issued EUA will be effective until the declaration that circumstances exist justifying the authorization of the emergency use of in vitro diagnostic tests for detection and/or diagnosis of COVID-19 is terminated under Section 564(b)(2) of the Act or the EUA is revoked under Section 564(g) of the Act.Testing was performed using [employer] SARS-CoV-2 assay.Fact Sheet for Healthcare Providers:https://www.Live[employer]/kasandra/RT SARS-CoV-2 HCP Fact Sheet 51- 775820.pdfFact Sheet for Healthcare Patients:https://www.[employer]/kasandra/RT SARS-CoV-2 Patient Fact Sheet EN 51-115369W3.pdfTissue [id number] 12:54:24 Test Item Value Reference Range Interpretation Comments Case Report (test code Surgical Pathology = 104) Report Case: [id number] Authorizing Provider: Tripp Cruz, Collected: 12/03/2021 12:29 PM Ordering Location: [facility] Received: 12/03/2021 03:45 PM SERVICES Pathologist: Farhana Davis MD Specimens: A) - Polyp, Colon - Right/Ascending, x4/ cold snare B) - Polyp, Colon - Sigmoid DIAGNOSIS (test code = f1xyvKFpJEQmx3jfEZPvmS 3220) FuZzEwMzNcZnRuYmpcdWMx IHtccnRmMVxlcGljOTYwMV hjiqHfEFGsiWGbY4Cxipmu GOlaBQ9eSM1jpVktgUYneJ UqIOFfPsThu7yxt435gDYk l5oyYZRIllmdbNo8aHkxQ3 0eo2F7SbodP21elOLjOXH3 VDKgTXDctSLpFTFlMOJ5FP XxuYTsY9yqEZAjQN4fxqkn JXftNZwvAAQioZR0NXTomL TyD3OtCKTtFMndZHOeujq7 WtBlXd4xrYIvhEulREhcTY KqSTCuPHlhZFQqIjXkYY8k TxyVVQXfLMSQXJ9FQM2ICY ZXUO8LPRHFFDkWCEy2SORE Q4dWKVLKAXRHJTSSNDgKHD IJI86IVxbnDYEsGVYjKVJA Z55hMsKFF93SMfNRKH9DJQ RBCkFDPPLmHRBVLs2BJWxi GXFykRMoRDJgEWGNV89YWV JfF98IU17qBU8RVMHbGKWA H5UQMTlutTSaPYMtAR5mM4 9XG08VQwFOWUCEG3SiT7wC SCBIWVBFUlBMQVNUSUMgQ0 iVPlrRPVUxtgbvJQGwA7nz cGxccGFyfXtccnRmMVxzc3 YjGNduSAMzIJ4yjSfqXPTw BN6dIOUvE1egfZ4qnvn1Ub ZcOWVkZrI1EPEzksX1Eps4 JNJvKWiyp6fzv6LtDQMxSB r4vQtoNjJfUJOin5jnesDw ZmNoYXJzZXQwIEFyaWFsO3 88b5fwu3mvsaNhkPF7RIZg MEB0LWjojmXwchJ6WZjadY XhLoU6RSykpfLcMOzutaJe ywShCcz1RHEnN924TOX4oB hkt9apJCM2FRUbOFEzQnNl Vq9xoHNkH003CLEyFVZPCG SdpJc0OKUvomHatcYefSOL g126Z166a1kfMMTngrSwkP uTslggt5qpW178XITdzPSp ksRqKqEjKCHqlDSgeGK6EO ZsGN2jipjgNDdmMNumMMPz tfG0RGPezOEaS8JnLGFwBL 5jtlceXAZ1JEdlODQvRCC9 OgRrHXXhp8Zysli8FcTrfs 7voo91STN0b2ZdxKcwYIN7 OXU8MpUoFr2jxPCqKOCjCZ 2gQcIbwDClBBGafr06bGfk KMnbWST0JKHqwqNpd5Afi4 jdCgDiybLeP8jfF1TkCDKe IYSvVUOnZrGkuyTxj5Jpm1 SizMVqxXm3q8mzWCNrNSQk gKdyy6blOAG6JKZuuTCtO3 zlnC1rJBFcMZ6saxdpi2lj YHmfOWueBZDcnEN7xaC6BD UfdGKzI7WptY7oFQJzRHdd SCNbtog2OdZyTa2fzUZdpD cyMFxzYmtwYWdlXHBnbmNv bnRccGduZGVjXHBsYWluXH BsYWluXGYwXGZzMjRccWxc bGFuZzEwMzNcaGljaFxmMV xbVuWcCVRbBWocP1tlFwTv PbIyQah8EBInqXGcHRUpLu j1AXYviQKwDSASjUnzjQ0z VTEtdRczbR6toIC9KAJvpq DhjKSNoG5aQUIMfQ1dIpK1 WQNdAdq1QBZ7MQFbnRGtiW 0= COMMENT (test code = y7oocPPmKQPycYH5FbRsEA 3987) Noo5rcz8NffUAlhLKgKGtn oAMxgoXhvz84vRP7wR12LQ 5vEHAtQeN0WNNclnR9Xzf5 OFPlQAHimIJnH538g6hwy1 ylfsYgqST7bUdvNMYwgjpf TeG7EZmkSJMnfrvaOIy2VT rjBQAalET5XYDxwMFgM6Fp DLXmPG2qmpz9MES4CAcvNL McCmA5ZDPbtWCjILNnkSva GFdda806OBL9QmQkTQGtsx AtyAnpzH1mOwTzNAVYudCj u9RcgWxoQHQctJ8lcEYrEI GhKLnkIN9dHKZjky5= CPT Code(s) (test code f5xxzKInLJQqgFB1ThHlCE = 3357) Pcf7kof7IwaWUniYAzKZob yIYihcNeci86lCV1wA70RG 9mTXOeQyX8CABwioC3Xwq9 WUJbYDYssUDgC668v4oiu9 ndpzOgcWO9gCkiVQNjmknq TwJ0BBjwRCQituzhYHs4JV ejNZXdwYV2QWUmmMZmQ9Cb PXFxCL2mkre2PYU0RHdlCY XiFcW1ZPNlmMKuXLTchMxe MRwbm026NGF7HbNrMNTvlb BwlBmslR7bPdFyOAX8EWZp NSBYMlxwYXJ9 GROSS DESCRIPTION (test m4etsIAcQXXzfRZ6SpOgPS code = 3366) Kpr7rbp7JybSYhsAQzRTxf vJMfbsMwtm29dCF7fB94AA 9jSRAxQbS2RAJmclT5Enb6 TBCqZQAeoSHoO588o7dnr1 zwkmAfnLA8dCayJUFdzgcm PlH6MNqfJLEliftpZZm6BB fqOHEtdLU2FJKmoGXaC7Pj EUGbQI9lyoo8MWP4MHojNC GdBcQ6UHJexDAjLEMoaJtr CRogg835NVF4UpLyXAGkpg HtdBblmS5vJsCpRCTFBzSd XmApGXy3DFYioF7mXn6opS FkfY8gMJgtWsUbFWGwx1g8 pYF6xROitEJ8wGCdaDGcsj Iarz5aeNhhqcjiXbIwV3Pc WRugFpRhk5reuoQit8u5kS RtVLInDL12nWItaPqeCOGs me2weE4gDFFzwVmfx0upWT 25H94xYCwxgWgwi5OoUROx QKwtEE23bfXuC9ghZVwboN krQrV3hzClJJcgMG76FTyg PR5tLDVjEcMwPUfdUTFbIM PfuPDiUQxuREU8Iy9faVOk GMOrmmD8j2VgHDbvQXZji2 NldHRlIEExLlxwYXJccGFy IEIuICBSZWNlaXZlZCBpbi Irg0TaSHtzcxnxiYEoWDkr EIO9fJWjBILdWZUmQFYwEA 30GYydRg5lfRU1zT6uAEWg v0fjwN7hHFVku9kirxYeo3 j2tXJavCVwLEG6ZQ5yoYqs fuDpePBjx5IyJFHwy4F4WQ RanfRzcOQguRPpbHGpg4Nq nE8wJRQfRgI7NOFwOMO2KP YyRdEmkF0nJSLzAURynRQn uG4sblDcnkOpsPRutMU8PJ HppF5jbQ47fvVqtdSmFCCq WOO7ABDTIQ2hzEjfXDakoH 0rOEaPSJZmxh1= MICROSCOPIC DESCRIPTION a6ifyCRpSGNeiVB9PeAuUP (test code = 3371) Wek8xbp4EtzRTuxGKvDCzm fBChwfJycw37qES3hX78PN 9lNVRjCqF0NCLhcqO7Mxd5 AMZqGGNrfJSmL279h5fzl7 kybnYthHP2yUvvNGBywghk JdB6AXzbBPZsowdwRSe4OF ozHQVbtVC3AONbkYAqP5Xd UOHoZO3dgia7UPG0AHjnTQ LlChW9JLTgkCEgORBcvRpa NTbkl300CRW9KxNmUDZego DniKfrwS1fFdSgQMRXROHi r7UjPOMqFOKglp6= Gross assessment was [facility] (test code Medical Center, = 2777) Department of Pathology, [address] [place] [address], [place] [address], Technical component was [facility] performed at ([facility], = 2778) Department of Pathology, [address] [place] [address], Professional component [facility] was performed at ([facility], code = 2779) Department of Pathology, [address] [place] [address], [facility] [id number] 12:54:24 Test Item Value Reference Range Interpretation Comments Case Report (test code Surgical Pathology = 104) Report Case: [id number] Authorizing Provider: Tripp Cruz, Collected: 12/03/2021 12:29 PM MD Ordering Location: [facility] Received: 12/03/2021 03:45 PM SERVICES Pathologist: Farhana Davis MD Specimens: A) - Polyp, Colon - Right/Ascending, x4/ cold snare B) - Polyp, Colon - Sigmoid DIAGNOSIS (test code = v7vgwIJlTAQsn6bdQYOkvF 3220) FuZzEwMzNcZnRuYmpcdWMx IHtccnRmMVxlcGljOTYwMV iknbGaNUSdcQStK6Hvqyqo FDecGO7bBS2eqXypiOUzfL NfFCJdKmFqw6wmm781yNTc q8azTDGOemvulUw0aJugP1 7nj0F5LkjrJ59ddWJkRMA3 ICKgXQFuhPBiMJGcYCC3PD HpwLYeW3msLTEjBY1cvsbb CMsjFXgpCCMqbVA4XZMudH JmA1RmOBGiQWrwMECnqtm6 PmHdWs0swYUytOatECcgBJ WtSTCkNRehLAYyNlVeXS5e MoeKFAUoWZTHAO3CTW6RTK JUIW8IDMCZXGhXJCq9IRKB R1vMSYAPYXWHVDMJHHuNNX FRI58UBbldUVAzGJJnYEDE E10pSkYQQ81MRjZDYI6HJY WTQuTSWOTaQBMKXh3RVMzh ILKvaFAeVSZsPMGZD25XBI KjG09US33bVQ7JJOHqUAZW E6CVJSapcFZzFYCnXR3iT1 7MW27ZBcINTQFWQ4NrO3uM SCBIWVBFUlBMQVNUSUMgQ0 wZIigPAQCojuvzCIYqV1mm cGxccGFyfXtccnRmMVxzc3 RsQIdwAHRoET8kwFtfURYg XO2oVVZqB7qluS6hdtm1Sj KtXGUrTwN0UQYbaeE1Cig9 NSXsLFlhm9uoi3BrGIGjJY v7kIbrMrTmXXIqo4xwjuCg ZmNoYXJzZXQwIEFyaWFsO3 75z2ysj0smvgVlzLJ3XPUx FZE6CMiasiVdckH9LFtdiZ JkUoG5WOqztjPsBAkmisRi xaHpFwr2FRTpK974UYH5cM bcg3tcWPC5KAYtQUIyByAo Wj1daTWhM597YTEzLBZGIS LdrQx2JZBupaYqhqRmiCCS e886V622v5hjOCRujpIjcB qUpepxj0iqV256PVYfpBZf xfMdOiSbYVJmeTHwcVB5XY IlWT3tadikINajNDapNDNp mwF4PBAinQWzZ0CiTAVaQI 1dryzkUJT0BGrkBSMlQJS3 LxNfIEXbh4Ugbjl8YiIkof 7sjz10QTO3a3VlhZhkXYE6 PYU1SaUsNo2vpEIdZIYiTD 0uHyHqgQNoSWBtsz07pVqk BJucOLU6JVCfthGyx1Ahn9 wzIiFxatYkU6mlW6WhINVp QQLkYCWiNdAeqfJkb8Rra2 IekTFikLi6n8kvGKTdWQDd wKwzq7ptCGU3VCEhnVPaY6 oviX3tLHWmDW1qdomay8ir FOpfCZppVOLzvBB5exI2AU SkvVQmR8XwlY9kEBPkWPiw WDXkcdw1TgTvXs8jlKKcsU cyMFxzYmtwYWdlXHBnbmNv bnRccGduZGVjXHBsYWluXH BsYWluXGYwXGZzMjRccWxc bGFuZzEwMzNcaGljaFxmMV imSnGhOALvVGrhN0gyYiRc QjNqXak4FAHcfNVoINNmAo r2VFSezZQbNYEVtRtodS9d FLDqgYywgO7qyFU1UIVeav JmsLERaY3qFERRjV7gKqE0 IPVaTtt7ESX8HUBirHOfgH 0= COMMENT (test code = f7ljzXShFQPldQU5SsStFC 8619) Woj4mvo9NmoZRjcMGmHTnz gQBlkfJdtl70hWU9eP11MW 6bMTOfKaJ4DALmxpS2Tft0 PYScPHMgeIBeV447y2ems7 cijlXnlXK9qOhzBEJkitxd SlC3ZRnnSLXnhlnzYTw5PH weTXKnrWD6YDCtjROjF7Vj SSZcNS0brxd8VWQ6ZTcgZD LqZpW0HOOktJElNXPtxUwu NXkri729QBQ1JtDpHNUkyj PtcQrbtH3fVbAyHWCKqpHq g9ZxwBvqCRNmuT7apPHtDK KzFQjpTJ4cEZOmpp5= CPT Code(s) (test code m1dbzNLqKRXhcCB9VuCzPW = 0869) Svs9ohc1JbbACisWUbXCiy eVCevbNlpc88wRH6fV22ST 9wYMMbSvW7WTQxtpO1Wxk8 FUZuDVXsbRCcS596u6qwk8 sergYzrZF9gJurIIRtufhr CbF4FTvbYNTkqzhoKGc3UT ssCLFdaDR9FQTmlMWoX5Gj GEByEW5wles3KXC4IOmgLA YxLrL7YIKlsMUbUJAmxGxw KSiue824TNX7VoKfRAHrhf ZipNuiyS4xPiKyPEO5IDSv NSBYMlxwYXJ9 GROSS DESCRIPTION (test w8pcnPGhRHTffME7SkYwFG code = 3366) Tbt6ldk6UecBFinVUhYWeq hJQzovOjwp16jIQ8wV54ZY 8lIXTuShH9ENErpwL0Hjz1 EMAlFXUssBYyT811l6mbt5 oievQouUB9rFfvHTCwimbk ZlI2GRtyEDBfxkqpUFs0GD igNULdbBB2ISNblYArK0Lp ECHlRO3wdrz7IIV9YQpvPV XuYkP0QUCstNJgJTOxsBmb KKuig310WXD7XmBlLLUbxj SdpJlalL9cAjOsKLSQUfFg SaCtKSd8ZFQhaQ5lGj2efY BzpO0mJEscZyRdMEXzw7h5 dUJ3uJYhcQW4eFWctMGbzk Lnva5saIroiphgSqFnC7Kv QDeeBgAqv3mumoCwn6i0bO UbHXRzAP04aBNkxItmBLBu hp2wtS0eTETfzGrrd6zcSF 84Y43kZTtaiGfqw5VkXYTw KYhiUR25sxSzA6epMQiarZ hbYiL0kdWkWVsbGN86WJch QJ8vIQLrUqDyWQstIYJsSB VmaHDeHIhbCST1Kf6xoXRu YOUjohB9i8YrXNggXGBop8 NldHRlIEExLlxwYXJccGFy IEIuICBSZWNlaXZlZCBpbi Ovj9OwRDuuehifjXDdDDfs YGQ0aELpYPRyJVEpFVVeKX 40JNoaUe2gtNX8hH2dUGAp m5mhhX2yCBBia1ccomPtj8 a3jOGorBPtFNW0NC7xqQlm snRkmERyr5FxJCBkc5H2IY OqlgCtbRPvlNDjbOSwb0Ir tY1cIDTuTvX1ZXJyPUU7PX YcUqSkuN7yBMCjEJSoqQRb eE5xutCfvtVszCJejVD5HI CqqI1maA87jnWaseBlHLIz EDX7LUVOUD9cbFbqQVkzlS 9fYLbUJTDkro4= MICROSCOPIC DESCRIPTION b6hfdIEcPIRjtLI6EyOaLP (test code = 3371) Xoc1hpy6IjbRSiyOGtTYfm oMOzxwAwdv44nOQ1xE79AP 3qHXOcEtT4EQScksK9Duu0 YFEtQTNwqZYuD618l5fjo4 vkhwCpzAV6hTouPEThhlzz UvI9YPzkPIIhdeufAAu6QR xmGDVoyUT1AWErvRDtO4Yf IRSgTS9igzf0HCX8RYceQW DmEoW2EVKouRMkCTOxvCpf FBhln570AUV4KeRsOPOhbi HilLkwvI8pVkLoRCFYDFWv a9EuVBTcJYVchr3= Gross assessment was [facility] performed at ([facility], = 2777) Department of Pathology, [address] [place] [address], Technical component was [facility] performed at ([facility], = 2778) Department of Pathology, [address] [place] [address], Professional component [facility] was performed at ([facility], code = 2779) Department of Pathology, [address] [place] [address], [facility] [id number] 12:54:24Surgical Pathology Report Case: [id number] Authorizing Provider: Tripp Cruz, Collected: 12/03/2021 12:29 PM Ordering Location: [facility] ENDOSCOPY Received: 12/03/2021 03:45 PM SERVICES Pathologist: Farhana Davis MD Specimens: A) - Polyp, Colon - Right/Ascending, x4/ cold snare B) - Polyp, Colon - Sigmoid A. RIGHT ASCENDING COLON POLYP X4, COLD SNARE POLYPECTOMY: - TWO FRAGMENTS OF TUBULAR ADENOMAB. SIGMOID COLON POLYP, BIOPSY: - COLONIC MUCOSA WITH HYPERPLASTIC CHANGESJ/pl Signing Pathologist Direct Phone Line: [phone] signed by Farhana Davis MD on 12/06/2021t 12:54 PMEndoscopic report reviewed. [id number] X2A. Received in formalin, labeled with the patient information, "ascending colon polyp" are multiple rios-pink polypoid mucosal tissue fragments aggregatingto 1 x 0.7 x 0.3 cm. The specimen is submitted in toto in cassette A1.B. Received in formalin, labeled with the patient information, "sigmoid colon polyp" is a rios-pink mucosal tissue fragments measuring 0.6 x 0.4 x 0.3 cm. The specimen is submitted in toto in cassette B1.JMPerformed [facility], Department of [facility]ology, [address] [place] [address], [facility], [address] [place] [address], [facility], Department of Pathology, [address] [place] [address], SARS-COV2/RT-PCR ([facility])2021-12-01 22:13:24 Test Item Value Reference Range Interpretation Comments SARS-COV2/RT-PCR (test code = Negative Negative [id number]) Negative result for this test determines that SARS-CoV-2 RNA was not present in the specimen above the Limit of Detection (LOD). However, Negative results do not preclude SARS-CoV-2 infection and should not be used as the sole basis for treatment or patient management decisions. Negative results must be combined with clinical observations, patient history, and epidemiological information. A false negative result may occur if a specimen is improperly collected, transported, or handled. A false negative result should be considered if patient's recent exposures or clinical presentation indicate that COVID-19 (SARS-CoV-2) is likely and diagnostic tests for other causes of illness are negative. Re-testing should be considered in cases of suspected false negatives.The limit of detection for this assay is 100 copies/mL.This SARS-CoV-2 test is a real-time RT_PCR test intended for the qualitative detection of nucleic acid from SARS-CoV-2 in a nasopharyngeal swab specimen collected from individuals suspected of COVID-19 by their healthcare provider.This test has not been Food and Drug Administration (FDA) cleared or approved. This is a modified version of an approved Emergency Use Authorization (EUA) and is in the process of review by the FDA. Once authorized by the FDA, the issued EUA will be effective until the declaration that circumstances exist justifying the authorization of the emergency use of in vitro diagnostic tests for detection and/or diagnosis of COVID-19 is terminated under Section 564(b)(2) of the Act or the EUA is revoked under Section 564(g) of the Act.Testing was performed using t [employer] SARS-CoV-2 assay.Fact Sheet for Healthcare Providers:https://www.Hologic.[place]ustin/kasandra/RT SARS-CoV-2 HCP Fact Sheet 51- 922765.pdfFact Sheet for Healthcare Patients:https://www.Hologic.austin/kasandra/RT SARS-CoV-2 Patient Fact Sheet EN 51-931744C1.pdfRAD, SPINE, LUMBAR, COMPLETE (MIN 4 VIEWS)2021-06-01 12:34:00Reason for Exam:->[facility] 1940 Sex: MFINAL REPORT CLINICAL HISTORY: acute low back pain TECHNIQUE: 5 views of the lumbar spine COMPARISON: Pelvis radiographs 07/17/2018 FINDINGS: There are 5 lumbar type weightbearing vertebral bodies. There is mild degenerative disc disease with large anterior overhanging osteophytes in the superior lumbar spine. No significant disc height loss. Vertebral body heights are maintained. No acute fracture seen. There is facet arthropathy at L5-S1 that may cause foraminal stenosis. There is calcification of the abdominal aorta. IMPRESSION:1.Lumbar spondylosis as described above. Facet arthropathy at L5-S1 may cause foraminal stenosis. Patient complains of radiculopathy consider MRI.2.No acute findings. Signed: Debi [facility]ence [facility] Verified Date/Time: 06/01/2021 12:34:54 Reading Location: [facility] Radiology Reading Room TISSUE [id number] 14:48:00Surgical Pathology Report Case: [id number] Authorizing Provider: Tripp Cruz, Collected: 12/04/2020 09:47 AM Ordering Location: [facility] Endoscopy Received: 12/04/2020 11:44 AM Services Pathologist: Scott Sales MD Specimens: A) - Biopsy, Gastric, biopsy of gastric polyp B) - Biopsy, Gastric, random bx A. STOMACH, BIOPSY OF POLYP:- SUGGESTIVE OF HYPERPLASTIC POLYP- NO INTESTINAL METAPLASIA, DYSPLASIA OR MALIGNANCY SEEN- NO HELICOBACTER PYLORI LIKE ORGANISMS IDENTIFIED ON WARTHIN STARRY STAINB. STOMACH, RANDOM BIOPSY- CHRONIC INACTIVE GASTRITIS, MINIMAL- NO INTESTINAL METAPLASIA, DYSPLASIA OR CARCINOMA IDENTIIFIED- NO HELICOBACTER PYLORI LIKE ORGANISMS IDENTIFIED ON WARTHIN STARRY STAIN Signing Pathologist Direct Phone Line: [phone] signed by Scott Sales MD on 12/08/2020 at 2:47 [id number] X 2, [id number] X 2, [id number], [id number] refluxstomachPart A is received in formalin labeled "gastric biopsy" and consists of two rios tissue fragments measuring 0.2 x 0.2 x 0.2 cm. The specimen is submitted in toto in cassette A1, following filtration. Part B is received in formalin labeled "random gastric biopsy" and consists of multiple rios tissue fragments ranging from 0.1 to0.3 cm in greatest dimension. Submitted in toto in cassette B1, following filtration. SA/plPerformed.The interpretation of this case included the use of immunohistochemistry or special stains.Ae1/Ae3-negative in foamy dxdntQs79-tlctpfud in foamy cellsControl Slides Examined: In-house known positive controls were evaluated along with the test tissue. These control slides run alongside of the patients sample show appropriate staining. Internal positive and negative controls when available are evaluated Immunohistochemistry technical testing was performed at [facility], Pathology Laboratory where it was developed and its performance characteristics were determined. It has not been cleared or approved by the U.S. Food and Drug Administration. The FDA has determined that such clearance or approval is not necessary. The test is used for clinical purposes. It should not be regarded as investigational or for research. This laboratory is certified under the Clinical Laboratory Improvement Amendments of 1988 (CLIA-88) as qualified to perform high complexity clinical laboratory testing.[facility], Department of Pathology, [address] [place] [address], [facility], [facility] of [facility], [address] [place] [address], [facility], [facility] of Pathology, [address] [place] [address], XAOCL METABOLIC [id number] 06:04:00 Test Item Value Reference Range Interpretation Comments SODIUM (BEAKER) 137 meq/L 135-148 (test code = 381) POTASSIUM (BEAKER) 3.9 meq/L 3.6-5.5 (test code = 379) CHLORIDE (BEAKER) 106 meq/L 98-106 (test code = 382) CO2 (BEAKER) (test 24 meq/L 20-29 code = 355) BLOOD UREA NITROGEN 21 mg/dL 10-26 (BEAKER) (test code = 354) CREATININE (BEAKER) 1.20 mg/dL 0.50-1.20 (test code = 358) GLUCOSE RANDOM 114 mg/dL 70-110 H (BEAKER) (test code = 652) CALCIUM (BEAKER) 8.5 mg/dL 8.5-10.5 (test code = 697) EGFR (BEAKER) (test 59 mL/min/1.73 ESTIMA MORE GFR IS code = 1092) sq m NOT ACCURATE CREATININE CLEARANCE IN PREDICTING GLOMERULAR FILTRATION RATE . ESTIMATED GFR I S NOT APPLICABLE FOR DIALYSIS PATIEN TS. CBC W/PLT COUNT & AUTO [id number] 06:02:00 Test Item Value Reference Range Interpretation Comments WHITE BLOOD CELL COUNT (BEAKER) 5.1 K/ L 4.0-10.0 (test code = 775) RED BLOOD CELL COUNT (BEAKER) 3.08 M/ L 4.20-5.80 L (test code = 761) HEMOGLOBIN (BEAKER) (test code = 9.8 GM/DL 13.0-16.8 L 410) HEMATOCRIT (BEAKER) (test code = 29.2 % 36.0-50.0 L 411) MEAN CORPUSCULAR VOLUME (BEAKER) 94.8 fL 82.0-99.0 (test code = 753) MEAN CORPUSCULAR HEMOGLOBIN 31.8 pg 27.0-33.0 (BEAKER) (test code = 751) MEAN CORPUSCULAR HEMOGLOBIN CONC 33.6 GM/DL 32.0-36.0 (BEAKER) (test code = 752) RED CELL DISTRIBUTION WIDTH 13.5 % 12.0-15.0 (BEAKER) (test code = 412) PLATELET COUNT (BEAKER) (test code 79 K/CU MM 150-430 L = 756) MEAN PLATELET VOLUME (BEAKER) 11.9 fL 6.0-11.5 H (test code = 754) NUCLEATED RED BLOOD CELLS (BEAKER) 0 /100 WBC 0-0 (test code = 413) NEUTROPHILS RELATIVE PERCENT 63 % (BEAKER) (test code = 429) LYMPHOCYTES RELATIVE PERCENT 21 % (BEAKER) (test code = 430) MONOCYTES RELATIVE PERCENT 13 % (BEAKER) (test code = 431) EOSINOPHILS RELATIVE PERCENT 2 % (BEAKER) (test code = 432) BASOPHILS RELATIVE PERCENT 0 % (BEAKER) (test code = 437) NEUTROPHILS ABSOLUTE COUNT 3.23 K/ L 1.80-8.00 (BEAKER) (test code = 670) LYMPHOCYTES ABSOLUTE COUNT 1.09 K/ L 1.48-4.50 L (BEAKER) (test code = 414) MONOCYTES ABSOLUTE COUNT (BEAKER) 0.67 K/ L 0.00-1.30 (test code = 415) EOSINOPHILS ABSOLUTE COUNT 0.10 K/ L 0.00-0.50 (BEAKER) (test code = 416) BASOPHILS ABSOLUTE COUNT (BEAKER) 0.01 K/ L 0.00-0.20 (test code = 417) IMMATURE GRANULOCYTES-RELATIVE 0 % 0-0 PERCENT (BEAKER) (test code = 2801) BASIC METABOLIC [id number] 05:56:00 Test Item Value Reference Range Interpretation Comments SODIUM (BEAKER) 137 meq/L 135-148 (test code = 381) POTASSIUM (BEAKER) 4.4 meq/L 3.6-5.5 (test code = 379) CHLORIDE (BEAKER) 104 meq/L 98-106 (test code = 382) CO2 (BEAKER) (test 25 meq/L 20-29 code = 355) BLOOD UREA NITROGEN 18 mg/dL 10-26 (BEAKER) (test code = 354) CREATININE (BEAKER) 1.01 mg/dL 0.50-1.20 (test code = 358) GLUCOSE RANDOM 124 mg/dL 70-110 H (BEAKER) (test code = 652) CALCIUM (BEAKER) 8.8 mg/dL 8.5-10.5 (test code = 697) EGFR (BEAKER) (test 71 mL/min/1.73 ESTIMA MORE GFR IS code = 1092) sq m NOT ACCURATE CREATININE CLEARANCE IN PREDICTING GLOMERULAR FILTRATION RATE . ESTIMATED GFR I S NOT APPLICABLE FOR DIALYSIS PATIEN TS. CBC W/PLT COUNT & AUTO [id number] 05:47:00 Test Item Value Reference Range Interpretation Comments WHITE BLOOD CELL COUNT (BEAKER) 6.5 K/ L 4.0-10.0 (test code = 775) RED BLOOD CELL COUNT (BEAKER) 3.73 M/ L 4.20-5.80 L (test code = 761) HEMOGLOBIN (BEAKER) (test code = 11.4 GM/DL 13.0-16.8 L 410) HEMATOCRIT (BEAKER) (test code = 36.0 % 36.0-50.0 411) MEAN CORPUSCULAR VOLUME (BEAKER) 96.5 fL 82.0-99.0 (test code = 753) MEAN CORPUSCULAR HEMOGLOBIN 30.6 pg 27.0-33.0 (BEAKER) (test code = 751) MEAN CORPUSCULAR HEMOGLOBIN CONC 31.7 GM/DL 32.0-36.0 L (BEAKER) (test code = 752) RED CELL DISTRIBUTION WIDTH 13.2 % 12.0-15.0 (BEAKER) (test code = 412) PLATELET COUNT (BEAKER) (test code 99 K/CU MM 150-430 L = 756) MEAN PLATELET VOLUME (BEAKER) 11.7 fL 6.0-11.5 H (test code = 754) NUCLEATED RED BLOOD CELLS (BEAKER) 0 /100 WBC 0-0 (test code = 413) NEUTROPHILS RELATIVE PERCENT 81 % (BEAKER) (test code = 429) LYMPHOCYTES RELATIVE PERCENT 8 % (BEAKER) (test code = 430) MONOCYTES RELATIVE PERCENT 10 % (BEAKER) (test code = 431) EOSINOPHILS RELATIVE PERCENT 0 % (BEAKER) (test code = 432) BASOPHILS RELATIVE PERCENT 0 % (BEAKER) (test code = 437) NEUTROPHILS ABSOLUTE COUNT 5.27 K/ L 1.80-8.00 (BEAKER) (test code = 670) LYMPHOCYTES ABSOLUTE COUNT 0.55 K/ L 1.48-4.50 L (BEAKER) (test code = 414) MONOCYTES ABSOLUTE COUNT (BEAKER) 0.64 K/ L 0.00-1.30 (test code = 415) EOSINOPHILS ABSOLUTE COUNT 0.00 K/ L 0.00-0.50 (BEAKER) (test code = 416) BASOPHILS ABSOLUTE COUNT (BEAKER) 0.02 K/ L 0.00-0.20 (test code = 417) IMMATURE GRANULOCYTES-RELATIVE 1 % 0-0 H PERCENT (BEAKER) (test code = 2801) RAD, PELVIS, 1 OR 2 [id number] 17:54:00Reason for exam:->Postop total hip replacementShould this be performed at the bedside?->YesFINAL REPORT Two views of the pelvis compared with same date. IMPRESSION: The patient is status post left total hip arthroplasty with grossly intact hardware and alignment. There are degenerative changes in the right hip. The sacrum is obscured by overlying bowel gas. Signed: Al Wtason MDReport Verified Date/Time: 07/17/2018 17:54:00 Reading Location: [address] Consult Reading Room , HIP, 2 VIEWS, [id number] 16:20:00Reason for exam:->Total Hip surgery FINAL REPORT LEFT HIP ONE VIEW HISTORY: Left hip osteoarthritis, left hip arthroplasty COMPARISON: None FINDINGS: Single intraoperative image of the left hip/low pelvis shows in progress changes of left hip total arthroplasty. An acetabular component is present. A reamer is present in the proximal femur. Signed: Papito Donovan Verified Date/Time: 07/17/2018 16:20:50 Reading Location: [facility] Radiology Reading Room BASIC METABOLIC PANEL 2018-07-03 11:49:00 Test Item Value Reference Range Interpretation Comments SODIUM (BEAKER) 141 meq/L 135-148 (test code = 381) POTASSIUM (BEAKER) 3.9 meq/L 3.6-5.5 (test code = 379) CHLORIDE (BEAKER) 103 meq/L 98-106 (test code = 382) CO2 (BEAKER) (test 29 meq/L 20-29 code = 355) BLOOD UREA NITROGEN 22 mg/dL 10-26 (BEAKER) (test code = 354) CREATININE (BEAKER) 1.20 mg/dL 0.50-1.20 (test code = 358) GLUCOSE RANDOM 84 mg/dL 70-110 (BEAKER) (test code = 652) CALCIUM (BEAKER) 9.4 mg/dL 8.5-10.5 (test code = 697) EGFR (BEAKER) (test 59 mL/min/1.73 ESTIMA MORE GFR IS code = 1092) sq m NOT ACCURATE CREATININE CLEARANCE IN PREDICTING GLOMERULAR FILTRATION RATE . ESTIMATED GFR I S NOT APPLICABLE FOR DIALYSIS PATIEN TS. Specimen slightly ictericCBC W/PLT COUNT & AUTO [id number] 11:30:00 Test Item Value Reference Range Interpretation Comments WHITE BLOOD CELL COUNT (BEAKER) 4.4 K/ L 4.0-10.0 (test code = 775) RED BLOOD CELL COUNT (BEAKER) 4.07 M/ L 4.20-5.80 L (test code = 761) HEMOGLOBIN (BEAKER) (test code = 12.6 GM/DL 13.0-16.8 L 410) HEMATOCRIT (BEAKER) (test code = 39.3 % 36.0-50.0 411) MEAN CORPUSCULAR VOLUME (BEAKER) 96.6 fL 82.0-99.0 (test code = 753) MEAN CORPUSCULAR HEMOGLOBIN 31.0 pg 27.0-33.0 (BEAKER) (test code = 751) MEAN CORPUSCULAR HEMOGLOBIN CONC 32.1 GM/DL 32.0-36.0 (BEAKER) (test code = 752) RED CELL DISTRIBUTION WIDTH 13.4 % 12.0-15.0 (BEAKER) (test code = 412) PLATELET COUNT (BEAKER) (test 117 K/CU MM 150-430 L code = 756) MEAN PLATELET VOLUME (BEAKER) 11.4 fL 6.0-11.5 (test code = 754) NUCLEATED RED BLOOD CELLS 0 /100 WBC 0-0 (BEAKER) (test code = 413) NEUTROPHILS RELATIVE PERCENT 57 % (BEAKER) (test code = 429) LYMPHOCYTES RELATIVE PERCENT 30 % (BEAKER) (test code = 430) MONOCYTES RELATIVE PERCENT 8 % (BEAKER) (test code = 431) EOSINOPHILS RELATIVE PERCENT 4 % (BEAKER) (test code = 432) BASOPHILS RELATIVE PERCENT 1 % (BEAKER) (test code = 437) NEUTROPHILS ABSOLUTE COUNT 2.49 K/ L 1.80-8.00 (BEAKER) (test code = 670) LYMPHOCYTES ABSOLUTE COUNT 1.32 K/ L 1.48-4.50 L (BEAKER) (test code = 414) MONOCYTES ABSOLUTE COUNT (BEAKER) 0.37 K/ L 0.00-1.30 (test code = 415) EOSINOPHILS ABSOLUTE COUNT 0.17 K/ L 0.00-0.50 (BEAKER) (test code = 416) BASOPHILS ABSOLUTE COUNT (BEAKER) 0.02 K/ L 0.00-0.20 (test code = 417) IMMATURE GRANULOCYTES-RELATIVE 0 % 0-0 PERCENT (BEAKER) (test code = 2801) BASIC METABOLIC [id number] 06:02:00 Test Item Value Reference Range Interpretation Comments SODIUM (BEAKER) 142 meq/L 135-148 (test code = 381) POTASSIUM (BEAKER) 3.8 meq/L 3.6-5.5 (test code = 379) CHLORIDE (BEAKER) 108 meq/L 98-106 H (test code = 382) CO2 (BEAKER) (test 27 meq/L 20-29 code = 355) BLOOD UREA NITROGEN 21 mg/dL 10-26 (BEAKER) (test code = 354) CREATININE (BEAKER) 1.20 mg/dL 0.50-1.20 (test code = 358) GLUCOSE RANDOM 100 mg/dL 70-110 (BEAKER) (test code = 652) CALCIUM (BEAKER) 8.7 mg/dL 8.5-10.5 (test code = 697) EGFR (BEAKER) (test 59 mL/min/1.73 ESTIMA MORE GFR IS code = 1092) sq m NOT ACCURATE CREATININE CLEARANCE IN PREDICTING GLOMERULAR FILTRATION RATE . ESTIMATED GFR I S NOT APPLICABLE FOR DIALYSIS PATIEN TS. CBC W/PLT COUNT & AUTO [id number] 05:46:00 Test Item Value Reference Range Interpretation Comments WHITE BLOOD CELL COUNT (BEAKER) 5.6 K/ L 4.0-10.0 (test code = 775) RED BLOOD CELL COUNT (BEAKER) 4.31 M/ L 4.20-5.80 (test code = 761) HEMOGLOBIN (BEAKER) (test code = 13.3 GM/DL 13.0-16.8 410) HEMATOCRIT (BEAKER) (test code = 39.6 % 40.0-50.0 L 411) MEAN CORPUSCULAR VOLUME (BEAKER) 91.9 fL 82.0-98.0 (test code = 753) MEAN CORPUSCULAR HEMOGLOBIN 30.9 pg 27.0-33.0 (BEAKER) (test code = 751) MEAN CORPUSCULAR HEMOGLOBIN CONC 33.6 GM/DL 32.0-36.0 (BEAKER) (test code = 752) RED CELL DISTRIBUTION WIDTH 12.5 % 10.3-14.2 (BEAKER) (test code = 412) PLATELET COUNT (BEAKER) (test 119 K/CU MM 150-430 L code = 756) MEAN PLATELET VOLUME (BEAKER) 9.2 fL 6.5-10.5 (test code = 754) NEUTROPHILS RELATIVE PERCENT 60 % (BEAKER) (test code = 429) LYMPHOCYTES RELATIVE PERCENT 25 % (BEAKER) (test code = 430) MONOCYTES RELATIVE PERCENT 11 % (BEAKER) (test code = 431) EOSINOPHILS RELATIVE PERCENT 4 % (BEAKER) (test code = 432) BASOPHILS RELATIVE PERCENT 1 % (BEAKER) (test code = 437) NEUTROPHILS ABSOLUTE COUNT 3.40 K/ L 1.80-8.00 (BEAKER) (test code = 670) LYMPHOCYTES ABSOLUTE COUNT 1.40 K/ L 1.48-4.50 L (BEAKER) (test code = 414) MONOCYTES ABSOLUTE COUNT (BEAKER) 0.60 K/ L 0.00-1.30 (test code = 415) EOSINOPHILS ABSOLUTE COUNT 0.20 K/ L 0.00-0.50 (BEAKER) (test code = 416) BASOPHILS ABSOLUTE COUNT (BEAKER) 0.00 K/ L 0.00-0.20 (test code = 417) BASIC METABOLIC [id number] 08:43:00 Test Item Value Reference Range Interpretation Comments SODIUM (BEAKER) 141 meq/L 135-148 (test code = 381) POTASSIUM (BEAKER) 4.7 meq/L 3.6-5.5 (test code = 379) CHLORIDE (BEAKER) 106 meq/L 98-106 (test code = 382) CO2 (BEAKER) (test 30 meq/L 20-29 H code = 355) BLOOD UREA NITROGEN 27 mg/dL 10-26 H (BEAKER) (test code = 354) CREATININE (BEAKER) 1.30 mg/dL 0.50-1.20 H (test code = 358) GLUCOSE RANDOM 116 mg/dL 70-110 H (BEAKER) (test code = 652) CALCIUM (BEAKER) 9.2 mg/dL 8.5-10.5 (test code = 697) EGFR (BEAKER) (test 54 mL/min/1.73 ESTIMA MORE GFR IS code = 1092) sq m NOT ACCURATE CREATININE CLEARANCE IN PREDICTING GLOMERULAR FILTRATION RATE . ESTIMATED GFR I S NOT APPLICABLE FOR DIALYSIS PATIEN TS. [id number] 08:38:00 Test Item Value Reference Range Interpretation Comments PROTIME (BEAKER) (test code = 10.9 seconds 9.3-12.0 759) INR (BEAKER) (test code = 370) 1.0 <=5.9 PARTIAL THROMBOPLASTIN TIME 30.8 seconds 23.0-35.0 (BEAKER) (test code = 760) RECOMMENDED COUMADIN/WARFARIN INR THERAPY RANGESSTANDARD DOSE: 2.0 - 3.0 Includes: PROPHYLAXIS for venous thrombosis, systemic embolization; TREATMENT for venous thrombosis and/or pulmonary embolus.HIGH RISK: Target INR is 2.5-3.5 for patients with mechanical heart valves.CBC W/PLT COUNT & AUTO [id number] 08:23:00 Test Item Value Reference Range Interpretation Comments WHITE BLOOD CELL COUNT (BEAKER) 4.6 K/ L 4.0-10.0 (test code = 775) RED BLOOD CELL COUNT (BEAKER) 4.44 M/ L 4.20-5.80 (test code = 761) HEMOGLOBIN (BEAKER) (test code = 13.7 GM/DL 13.0-16.8 410) HEMATOCRIT (BEAKER) (test code = 40.9 % 40.0-50.0 411) MEAN CORPUSCULAR VOLUME (BEAKER) 92.1 fL 82.0-98.0 (test code = 753) MEAN CORPUSCULAR HEMOGLOBIN 31.0 pg 27.0-33.0 (BEAKER) (test code = 751) MEAN CORPUSCULAR HEMOGLOBIN CONC 33.6 GM/DL 32.0-36.0 (BEAKER) (test code = 752) RED CELL DISTRIBUTION WIDTH 13.5 % 10.3-14.2 (BEAKER) (test code = 412) PLATELET COUNT (BEAKER) (test 136 K/CU MM 150-430 L code = 756) MEAN PLATELET VOLUME (BEAKER) 9.0 fL 6.5-10.5 (test code = 754) NUCLEATED RED BLOOD CELLS 0 /100 WBC 0-0 (BEAKER) (test code = 413) NEUTROPHILS RELATIVE PERCENT 55 % (BEAKER) (test code = 429) LYMPHOCYTES RELATIVE PERCENT 29 % (BEAKER) (test code = 430) MONOCYTES RELATIVE PERCENT 10 % (BEAKER) (test code = 431) EOSINOPHILS RELATIVE PERCENT 6 % (BEAKER) (test code = 432) BASOPHILS RELATIVE PERCENT 0 % (BEAKER) (test code = 437) NEUTROPHILS ABSOLUTE COUNT 2.50 K/ L 1.80-8.00 (BEAKER) (test code = 670) LYMPHOCYTES ABSOLUTE COUNT 1.30 K/ L 1.48-4.50 L (BEAKER) (test code = 414) MONOCYTES ABSOLUTE COUNT (BEAKER) 0.50 K/ L 0.00-1.30 (test code = 415) EOSINOPHILS ABSOLUTE COUNT 0.30 K/ L 0.00-0.50 (BEAKER) (test code = 416) BASOPHILS ABSOLUTE COUNT (BEAKER) 0.00 K/ L 0.00-0.20 (test code = 417) Notes Date/Time Note Provider Source 2018-07-17 08:11:00-00:00 ALMA DELIA GIRARD [facility] HISTORY AND PHYSICAL EXAMINATION KACEY ESPINOZA FACILITY: [facility] BILLING #: [id number] ROOM: [facility] [place] [facility] [place] MR #: [id number] : 1940 DATE OF ADMISSION: 07/17/2018 ADMITTING PHYSICIAN: Alma Delia Girard MD DATE OF : 1940 HISTORY OF PRESENT ILLNESS: Kacey is 78 years old and is right-hand dominant. 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 He has the chief complaint of severe left hip pain. HISTORY: This has been going on for about 3 year s. It has gotten progressively worse over the last couple of year s. He still has "good days and bad days". Once he is moving around, the ian n eases somewhat. He thinks that his hip problems may be related to radiatio n therapy he had more than 5 years ago to his right hip. He had some type of mass on the hip that was eradicated with the radiation. He has no history of trauma to his hip. No other joints bother him. I sent him to physic al therapy this past March, and he is continuing to work on his home exercis es. However, the pain persists. He still walks as much as he can, but has to use a cane for support. SOCIAL HISTORY: No one else in the household smo kes. He is a former smoker who quit 50 years ago. He does not drink alcohol . FAMILY HISTORY: Significant for brother with hea rt disease and a sister with heart disease. REVIEW OF SYSTEMS: He has no history of depressi on or anxiety, dizziness, syncope, chest pain, shortness of breath, bowel or bladder incontinence, or metal allergies. He has had no recent change in his health. PAST MEDICAL HISTORY: He was hospitalized in for nosebleed that just would not quit. He has also had cataract surgery and surgery on his hand. He has hypertension, peripheral vascular disease , gastroesophageal reflux disease, and lymphedema in his legs. He has atri al fibrillation. He has no history of DVT/PE, depression, anxiety, urologic problems, thyroid disease, diabetes, asthma, lung disease, gout, Crohn dise ase, ulcerative colitis, rheumatoid arthritis, lupus, or other autoimmune disorders. ALLERGIES: HE HAS NO KNOWN ALLERGIES. MEDICATIONS: He takes: 1. Atenolol 25 mg one-half tablet daily. 2. Atorvastatin 40 mg p.o. at night. 3. Finasteride 5 mg p.o. daily. 4. Midazolam 2 mg per mL syrup, 2 mg by mouth on ce daily. 5. Omeprazole 40 mg p.o. daily. 6. Terazosin 5 mg p.o. daily. 7. Torsemide 20 mg p.o. daily. 8. Xarelto 20 mg p.o. daily. He stopped the Xare lto 5 days ago. PHYSICAL EXAMINATION GENERAL: On exam, he appears healthy and has a r easonable weight at 6 feet and 242 pounds. He is 30 pounds down from where we first met. He has good grooming habits. VITALS: His BP is 122/70, pulse 76 and regular. His temperature is 97.4. HEENT: Evaluation is unremarkable. His nasophary nx and oropharynx are benign. NECK: Supple. He has no carotid bruits. CHEST: Clear to auscultation. HEART: He has a slightly irregularly irregular r hythm without murmur or gallop. ABDOMEN: Obese. I cannot feel any masses. EXTREMITIES: He walks with a severe stiff limb. Antalgic limp on the left side. His left lower extremity seems to be about a centimeter longer than the right. The right hip can flex to 90 degrees and extend fully. The left hip has about a 30-degree hip flexion contractur e. Can flex to only about 70 degrees. External rotation on the right is 45 de grees and internal rotation brings the hip to neutral. The left hip can exte rnally rotate 35 degrees. It lacks 10 degrees of coming to neutral and int ernal rotation. The hip grind test is markedly positive on the right veronica e. He has distal vascular changes in both legs. In the past, he has had op en sores on the left side. He has been taking good care of his skin. These have resolved. His peripheral pulses are palpable. He has 2+ edema of his ankles. X-rays of his left hip performed in my office on March 23, 2018, showed severe osteoarthritis. He has almost no remaining joint space. He has dense subchondral sclerosis on both sides of the joint with periarticular cysts and periarticular osteophytes. The femoral head is t ending to sublux a bit superiorly and laterally. His bone quality looks good. His soft tissues shadows are ample, but otherwise okay. 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 He has worked as hard as he could to lose some weight, but miguelangel uld reduce his risk of dislocation, infection, wound healing problems. We have talked in the past on several occasions about the potential complic ations of hip replacement surgery, and he understands this is a large proc edure. We will restart his Xarelto tonight. I believe he has reasonable exp ectations. JANA/carl A A Job#: [id number] Doc#: [id number] FN: [id number] cc: Alma Delia Girard MD
[2023-07-01] MEDS ORDERED: LIDOCAINE 2% W/EPI 1:200,000 MPF 20 ML VIAL IM ONE (11:38)
[2023-07-01] MEDS ORDERED: TDAP (DIPHTH,PERTUSS(ACELL),TET VAC) 0.5 ML VIAL IMVAC ONE (11:39)
--- NOTE | 2023-07-01 11:44 | EDPHYS ---
Physician Documentation [facility] Name: Que Taylor Age: 83 yrs Sex: Male : 1940 Arrival Date: 07/01/2023 Time: 11:12 Bed 6 Private MD: ED Physician Alfred Michel HPI: 07/01 11:49 Patient is an 83-year-old that suffered a 3 cm laceration with a metal piece sticking jr11 out at his home. Denies any other injuries, no concern for foreign bodies tetanus is out of date. Denies any other injuries review of system negative.. Historical: - Allergies: 11:28 No Known Allergies; nj1 - PMHx: 11:28 Atrial Fib; enlarged prostate; Hypertension; GERD; Hypercholesterolemia; nj1 - PSHx: 11:28 Hip replacement, left; nj1 - Immunization history:: Client reports receiving the 2nd dose of the Covid vaccine. - Social history:: Smoking status: Patient denies any tobacco usage or history of. ROS: 11:49 All other systems are negative. jr11 Exam: 11:49 Constitutional: This is a well developed, well nourished patient who is awake, alert, jr11 and in no acute distress. Head/Face: Normocephalic, atraumatic. Eyes: Extra-ocular motions intact. Lids and lashes normal. Conjunctiva and sclera are non-icteric and not injected. Cornea within normal limits. Periorbital areas with no swelling, redness, or edema. ENT: Nares patent. No nasal discharge, no septal abnormalities noted. Oropharynx with no redness, swelling, or masses, exudates, or evidence of obstruction, uvula midline. Mucous membranes moist. Neck: Trachea midline, no thyromegaly or masses palpated, and no cervical lymphadenopathy. Supple, full range of motion without nuchal rigidity, or vertebral point tenderness. No Meningismus. Chest/axilla: Normal chest wall appearance and motion. Nontender with no deformity. No lesions are appreciated. Cardiovascular: Regular rate and rhythm with a normal S1 and S2. No gallops, murmurs, or rubs. Normal PMI, no JVD. No pulse deficits. Respiratory: Lungs have equal breath sounds bilaterally, clear to auscultation and percussion. No rales, rhonchi or wheezes noted. No increased work of breathing, no retractions or nasal flaring. Abdomen/GI: Soft, non-tender, with normal bowel sounds. No distension or tympany. No guarding or rebound. No evidence of tenderness throughout. Back: No spinal tenderness. No costovertebral tenderness. Full range of motion. Skin: 3 cm V shaped lac to LLE mid way, minimal oozing MS/ Extremity: Pulses equal, no cyanosis. Neurovascular intact. Full, normal range of motion. Neuro: Awake and alert, GCS 15, oriented to person, place, time, and situation. No gross motor or sensory deficits. Vital Signs: 11:17 BP 135 / 81; Pulse 72; Resp 18; Temp 97.5(O); Pulse Ox 97% on R/A; Weight 105.69 kg; nj1 Height 6 ft. 0 in. ; 11:17 Body Mass Index 31.60 (105.69 kg, 182.88 cm) nj1 Laceration: 11:49 Wound Repair of 3cm ( 1.2in ) subcutaneous laceration to left gooden. Distal jr11 neuro/vascular/tendon intact. Anesthesia: Local anesthetic administered with 5 mls of 1% lidocaine w/ Epi. Wound prep: Moderate cleansing by me. Skin closed with 4 3-0 Ethilon using simple sutures and sterile technique. Dressed with Bacitracin, Kerlix. Patient tolerated well. MDM: 11:22 Patient medically screened. jr11 11:49 Differential diagnosis: superficial laceration, Considered x-ray however patient states jr11 that there was no concern for foreign body plus looking at the base of the wound, no foreign body identified. Data reviewed: vital signs, nurses notes. ED course: OTC meds as needed for pain control . 07/01 11: Order name: Wound Care; Complete Time: : jr11 07/01 11:25 Order name: Wound dressing; Complete Time: jr11 Administered Medications: : Drug: Tetanus-Diphtheria Toxoid IM Adult 0.5 ml {Whitesmith: [employer] ([employer]). ap3 Exp: 11/30/2023. Lot #: [id number]. } Route: IM; Site: left deltoid; 11:47 Follow up: Response: (VIS) Vaccine information sheet provided today. Questions and/or ap3 concerns addressed. VIS edition date: Jun 18, 2021.; No adverse reaction 11:47 Drug: Arggbwrg-Olihyenotl-Kpnotqktw Topical Ointment 1 application Route: Topical; ap3 Site: affected area; 11:48 Drug: Lidocaine-Epinephrine Infiltration -1%: (1:100,000) 10 ml {Note: by dr. michel.} ap3 Volume: 20 ml; Route: Infiltration; Disposition Summary: 07/01/23 11:42 Discharge Ordered Location: Home [facility] Condition: Stable [facility] Diagnosis - Laceration without foreign body of lower leg jr Followup: [facility] - With: Private Physician - When: 10 - 14 days - Reason: Staple/Suture removal Discharge Instructions: - Discharge Summary Sheet jr - Laceration Care, Adult [facility] Forms: - Medication Reconciliation Form 11 - Thank You Letter jr11 - Antibiotic Education jr11 - Prescription Opioid Use jr11 - Patient Portal Instructions jr11 - Leadership Thank You Letter jr11 Signatures: Krissy Evans RN RN ap3 Alfred Michel MD MD jr11 Va Swenson RN RN nj1
--- NOTE | 2023-07-01 11:44 | ER ---
Nurse's Notes [facility] Name: Que Taylor Age: 83 yrs Sex: Male : 1940 Arrival Date: 07/01/2023 Time: 11:12 Bed 6 Private MD: Diagnosis: Laceration without foreign body of lower leg Presentation: 07/01 11:17 Chief complaint: Patient states: Was walking and hit his left lower leg on a metal nj1 piece. Takes xarelto. 11:17 Method Of Arrival: Ambulatory [facility] 11:17 Coronavirus screen: Vaccine status: Patient reports receiving the 2nd dose of the covid nj1 vaccine. Ebola Screen: Patient denies travel to an Ebola-affected area in the 21 days before illness onset. Complicating Factors: There are no complicating factors for this patient. Initial Sepsis Screen: Does the patient meet any 2 criteria? No. Patient's initial sepsis screen is negative. Does the patient have a suspected source of infection? No. Patient's initial sepsis screen is negative. Risk Assessment: Do you want to hurt yourself or someone else? Patient reports no desire to harm self or others. Onset of symptoms was July 01, 2023. 11:17 Acuity: FELIX 4 nj1 Historical: - Allergies: 11:28 No Known Allergies; nj1 - PMHx: 11:28 Atrial Fib; enlarged prostate; Hypertension; GERD; Hypercholesterolemia; nj1 - PSHx: 11:28 Hip replacement, left; nj1 - Immunization history:: Client reports receiving the 2nd dose of the Covid vaccine. - Social history:: Smoking status: Patient denies any tobacco usage or history of. Screenin:36 [facility] ED Fall Risk Assessment (Adult) History of falling in the last 3 months, ap3 including since admission No falls in past 3 months (0 pts). Abuse screen: Denies threats or abuse. Nutritional screening: No deficits noted. Tuberculosis screening: No symptoms or risk factors identified. Assessment: 11:35 General: Appears in no apparent distress. Behavior is calm, cooperative, appropriate ap3 for age. Pain: Complains of pain in left gooden Pain began suddenly. Neuro: Level of Consciousness is awake, alert, obeys commands, Oriented to person, place, time, situation. Cardiovascular: Patient's skin is warm and dry. Respiratory: Airway is patent Respiratory effort is even, unlabored, Respiratory pattern is regular, symmetrical. Derm: Wound noted left gooden. Musculoskeletal: Reports pain in left gooden. Injury Description: Laceration sustained to left gooden is jagged. Vital Signs: 11:17 BP 135 / 81; Pulse 72; Resp 18; Temp 97.5(O); Pulse Ox 97% on R/A; Weight 105.69 kg; nj1 Height 6 ft. 0 in. ; 11:17 Body Mass Index 31.60 (105.69 kg, 182.88 cm) nd1 ED Course: 11:15 Patient arrived in ED. im 11:16 Alfred Michel MD is Attending Physician. 11 11:19 Monet Be, SELENE is Primary Nurse. ko1 11:28 Triage completed. nj1 11:30 Arm band placed on. nj1 11:37 Patient has correct armband on for positive identification. Bed in low position. Call ap3 light in reach. Side rails up X 1. Adult w/ patient. Pulse ox on. NIBP on. 11:37 Provided Education on: vaccination education. ap3 11:37 Assist provider with laceration repair on left gooden using sutures. Set up tray. ap3 Performed by Alfred Michel MD Patient tolerated well. 11:37 Patient did not have IV access during this emergency room visit. 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 ap3 Exp: 11/30/2023. Lot #: [id number]. } Route: IM; Site: left deltoid; 11:47 Follow up: Response: (VIS) Vaccine information sheet provided today. Questions and/or ap3 concerns addressed. VIS edition date: Jun 18, 2021.; No adverse reaction 11:47 Drug: Fmalhote-Eifycserzz-Vobhkcbog Topical Ointment 1 application Route: Topical; ap3 Site: affected area; 11:48 Drug: Lidocaine-Epinephrine Infiltration -1%: (1:100,000) 10 ml {Note: by dr. michel.} ap3 Volume: 20 ml; Route: Infiltration; Medication: 11:38 Vaccine Information Statement (VIS) provided today. Questions and/or concerns ap3 addressed. VIS edition date: June 2021. Outcome: 11:42 Discharge ordered by . jr11 11:48 Discharged to home ambulatory, with family. ap3 11:48 Condition: good 11:48 Discharge instructions given to patient, family, Instructed on discharge instructions, follow up and referral plans. wound care, Demonstrated understanding of instructions, follow-up care, wound care. 11:48 Patient left the ED. ap3 Signatures: Krissy Evans RN RN ap3 Alfred Michel MD MD jr11 Monet Be RN RN ko1 Va Swenson RN RN nj1 Dipti Mcnally Corrections: (The following items were deleted from the chart) 11:38 11:37 VIS not applicable for this client. ap3 ap3
[2023-07-01 12:08] VITALS: BP 135/81; TEMP 97.5; O2SAT 97
== END 2023-07-01 11:48 | disposition home or self-care (01) ==
LOC: ER 11:12
PROC: 0JQP0ZZ Repair Left Lower Leg Subcutaneous Tissue and Fascia, Open Approach (ICD-10-PCS; principal; 2023-07-01)
DX: S81.812A Laceration without foreign body, left lower leg, initial encounter (principal); W26.8XXA Contact with other sharp object(s), not elsewhere classified, initial encounter; Y93.9 Activity, unspecified; Y92.019 Unspecified place in single-family (private) house as the place of occurrence of the external cause; Z23 Encounter for immunization; I10 Essential (primary) hypertension; K21.9 Gastro-esophageal reflux disease without esophagitis; E78.00 Pure hypercholesterolemia, unspecified; I48.91 Unspecified atrial fibrillation
CPT/HCPCS: 90471; 99284

== ENCOUNTER 2024-05-05 19:16 | Emergency (ER) | payer OTHER ==
--- NOTE | 2024-05-05 21:00 | RAD REPORT ---
EXAM DESCRIPTION: CT - Head Brain Wo Cont - 05/05/2024 8:34 pm CLINICAL HISTORY: ams COMPARISON: Head Brain Wo Cont dated 12/25/2017; Facial Bones W/ Mpr dated 12/25/2017 TECHNIQUE: All CT scans are performed using dose optimization technique as appropriate and may inclu de automated exposure control or mA/KV adjustment according to patient size. FINDINGS: No intracranial hemorrhage, hydrocephalus or extra-axial fluid collection.No areas of brai n edema or evidence of midline shift. Cerebral atrophy. The paranasal sinuses and mastoids are clear. The calvarium is intact. Metallic artifact at the left posterior aspect of the maxillary sinus. IMPRESSION: No acute intracranial abnormality.
--- NOTE | 2024-05-05 21:11 | RAD REPORT ---
EXAM DESCRIPTION: RAD - Chest Single View - 05/05/2024 9:03 pm CLINICAL HISTORY: COUGH COMPARISON: No comparisons FINDINGS: Lines: None. Lungs: No evidence of edema or pneumonia. Pleural: No significant pleural effusions or pneumothorax. Cardiac: Cardiomegaly. Mediastinum: Within normal limits. Bones: No acute fractures. Other: None IMPRESSION: No acute cardiopulmonary disease.
[2024-05-05 21:13] LABS: Specific Gravity 1.013 (1.005-1.030); Sqamous Epithelial None Seen /HPF (None Seen); Urine Bacteria None Seen /HPF (<20); Urine Bilirubin NEGATIVE (Negative); Urine Blood Negative (Negative); Urine Clarity Clear (Clear); Urine Color Light-Yellow (Yellow); Urine Culture Reflex Order NOT NEEDED; Urine Glucose NEGATIVE (Negative); Urine Ketones NEGATIVE (Negative); Urine Micro Reflex YN NO BILL MICROSCOPIC; Urine Nitrite NEGATIVE (Negative); Urine Protein NEGATIVE (Negative); Urine RBC <5 /HPF (None Seen); Urine Urobilinogen Normal (Normal); Urine WBC <5 /HPF (<5)
[2024-05-05 21:27] LABS: Absolute Eosinophils 0.2 K/uL (0-0.5); Absolute Lymphocytes (CBC) 1.6 K/uL (0.7-4.9); Absolute Monocytes 0.6 K/uL (0.1-1.3); Absolute Neutrophil 3.2 K/uL (1.8-8.0); Basophils % 0.6 % (0-1.3); Eosinophils % 2.8 % (0-4.4); Hematocrit 37.7 % (39.6-49.0); Hemoglobin 12.6 g/dL (13.6-17.9); Lymphocytes % 28.7 % (15.3-44.8); MCHC 33.3 g/dL (32.0-36.0); MCV 89.8 fL (80-100); MPV 9.3 fL (7.6-11.3); Monocytes % 10.9 % (3.3-12.3); Nucleated Red Blood Cells % 0.3 % (0-0); Platelets 137 thou/uL (152-406); Red Cell Distribution Width 14.5 % (12.1-15.2)
[2024-05-05 21:34] LABS: Anion Gap 6.5 mEq/L (5.0-15.0); Potassium 3.5 mEq/L (3.5-5.1); Thyroid Stimulating Hormone 2.93 uIU/mL (0.358-3.740)
--- NOTE | 2024-05-06 08:52 | EDPHYS ---
Physician Documentation [facility] Name: Que Taylor Age: 83 yrs Sex: Male : 1940 Arrival Date: 05/05/2024 Time: 19:16 Bed 6 Private MD: ED Physician Peterson Cleveland HPI: 05/05 20:57 This 83 yrs old Male presents to ER via Ambulatory with complaints of Altered ec2 Mental Status. 20:57 Patient arrives today for evaluation of altered mental status. Patient has had slow ec2 progressive decline in his mental status ongoing for months to years. Patient has been having bouts of hallucinations, interacting with people who are not there, he has been evaluated by neurology for this. No recent falls injuries or trauma. No fevers or chills, no nausea or vomiting, no urinary complaints.. Historical: - Allergies: 20:25 No Known Allergies; vc1 - PMHx: 20:25 Atrial Fib; enlarged prostate; GERD; Hypercholesterolemia; Hypertension; vc1 - PSHx: 20:25 Hip replacement; vc1 - Immunization history:: Client reports receiving the 2nd dose of the Covid vaccine. - Infectious Disease History:: Denies. - Social history:: Smoking status: unknown. ROS: 20:57 Constitutional: as per hpi ec2 Exam: 20:57 Constitutional: GEN: NAD Head: atraumatic Eyes: EOMI Ears: External ears are ec2 normal. CV: regular rate LUNGS: no respiratory distress ABD: non-distended SKIN: no evidence of rashes MSK: no evidence of trauma NEURO: moves all extremities equally, cranial nerves II through XII intact, strength intact all 4 extremities. Vital Signs: 20:23 Pain 0/10; vc1 20:24 BP 157 / 89; Pulse 55; Resp 15 S; Pulse Ox 99% on R/A; jw7 22:35 BP 144 / 81; Pulse 59; Resp 16 S; Temp 97.4(O); Pulse Ox 99% on R/A; lg3 20:23 Pain Scale: Adult vc1 Nevis Coma Score: 20:56 Eye Response: spontaneous(4). Motor Response: obeys commands(6). Verbal Response: lg3 oriented(5). Total: 15. MDM: 20:10 Patient medically screened. ec2 20:57 Data reviewed: vital signs. ED course: Patient arrives today for evaluation of altered ec2 mental status that is been ongoing for months to years. Examination remarkable for neuro intact individuals otherwise in no acute distress with a reassuring examination. EKG obtained, independently reviewed and interpreted by me, shows atrial fibrillation, rate of 52, no acute ST segment elevations, intervals are nonconcerning. Will obtain lab work, CT scan of the head as well as chest x-ray. Differential diagnosis include electrolyte disturbances, intracranial mass, urinary tract infection.. 21:19 ED course: Chest x-ray shows no acute intrathoracic process. CT scan of the head shows ec2 no acute intracranial abnormality, urine study is negative. . 22:07 ED course: Metabolic profile shows some renal dysfunction with a creatinine of 1.38 and ec2 GFR 51. CBC shows slight anemia with a hemoglobin of 12.6. Thyroid studies are unremarkable, ammonia within normal ranges, chest x-ray shows no acute intrathoracic process. CT scan of the head shows no acute intracranial normality, urine studies are noninfectious appearing. Ultimately I suspect this is progression of the patient's known neurologic disease, dementia, I will have the patient follow-up outpatient expectantly with his neurologist. No evidence of infection, no evidence of stroke. Return precautions given. . 05/05 20:10 Order name: Basic Metabolic Panel; Complete Time: : 2 05/05 20:10 Order name: CBC with Diff; Complete Time: : 2 05/05 20:10 Order name: UAM; Complete Time: : 2 05/05 20:11 Order name: TSH; Complete Time: : ec2 05/05 20:11 Order name: T4 Free; Complete Time: : ec2 05/05 20:40 Order name: AMMONIA; Complete Time: 22: 2 05/05 20:10 Order name: XRAY Chest (1 view); Complete Time: 21: ec2 05/05 20:10 Order name: CT Head Brain wo Cont; Complete Time: 21: ec2 05/05 20:10 Order name: Cardiac monitoring; Complete Time: 20:25 ec2 05/05 20:10 Order name: EKG - Nurse/Tech; Complete Time: 20:57 ec2 05/05 20:10 Order name: IV Saline Lock; Complete Time: 20:57 ec2 05/05 20:10 Order name: Labs collected and sent; Complete Time: 20:57 ec2 05/05 20:10 Order name: O2 Per Protocol; Complete Time: 20:25 ec2 05/05 20:10 Order name: O2 Sat Monitoring; Complete Time: 20:25 ec2 Administered Medications: No medications were administered Disposition Summary: 05/05/24 22:14 Discharge Ordered Notes: Location: Home ec2 Condition: Stable ec2 Diagnosis - Confusional arousals ec2 - Visual hallucinations ec2 Followup: ec2 - With: Private Physician - When: - Reason: Re-evaluation by your physician Discharge Instructions: - Discharge Summary Sheet ec2 - Confusion ec2 Forms: - Medication Reconciliation Form ec2 - Antibiotic Education ec2 - Prescription Opioid Use ec2 - Patient Portal Instructions ec2 - Leadership Thank You Letter ec2 Signatures: Dispatcher [employer] EDMS Matilde Ramon RN RN vc1 Peterson Cleveland MD MD ec2 Corrections: (The following items were deleted from the chart) 20:11 20:11 Chest Single View+RAD.RAD.BRZ ordered. EDMS EDMS 20:11 20:11 Head Brain Wo Cont+CT.RAD.BRZ ordered. EDMS EDMS 20:11 20:11 THYROID STIMULAT HORMONE+C.LAB.BRZ ordered. EDMS EDMS 20:11 20:11 T4 FREE+C.LAB.BRZ ordered. EDMS EDMS
--- NOTE | 2024-05-06 08:52 | ER ---
Nurse's Notes [facility] Name: Que Taylor Age: 83 yrs Sex: Male : 1940 Arrival Date: 05/05/2024 Time: 19:16 Bed 6 Private MD: Diagnosis: Confusional arousals;Visual hallucinations Presentation: 05/05 20:23 Chief complaint: Patient's son or daughter states: altered seeing people in his house vc1 that are not there. Chief complaint: Patient states: I think I am seeing people. I am not sure if they are there or not. Also, I can't black pickler my bottle of water. Coronavirus screen: At this time, the client does not indicate any symptoms associated with coronavirus-19. Ebola Screen: Patient negative for fever greater than or equal to 101.5 degrees Fahrenheit, and additional compatible Ebola Virus Disease symptoms Patient denies exposure to infectious person. Patient denies travel to an Ebola-affected area in the 21 days before illness onset. No symptoms or risks identified at this time. Initial Sepsis Screen: Does the patient meet any 2 criteria? No. Patient's initial sepsis screen is negative. Does the patient have a suspected source of infection? No. Patient's initial sepsis screen is negative. Risk Assessment: Do you want to hurt yourself or someone else? Patient reports no desire to harm self or others. Onset of symptoms is unknown. Care prior to arrival: None. Activity prior to arrival: hallucinations. Mechanism of Injury: No Mechanism of Injury. Transition of care: patient was not received from another setting of care. 20:23 Method Of Arrival: Ambulatory vc1 20:23 Acuity: FELIX 3 vc1 Historical: - Allergies: 20:25 No Known Allergies; vc1 - PMHx: 20:25 Atrial Fib; enlarged prostate; GERD; Hypercholesterolemia; Hypertension; vc1 - PSHx: 20:25 Hip replacement; vc1 - Immunization history:: Client reports receiving the 2nd dose of the Covid vaccine. - Infectious Disease History:: Denies. - Social history:: Smoking status: unknown. Screenin:56 [facility] ED Fall Risk Assessment (Adult) History of falling in the last 3 months, lg3 including since admission No falls in past 3 months (0 pts) Confusion or Disorientation Yes (5 pts) Intoxicated or Sedated No (0 pts) Impaired Gait No (0 pts) Mobility Assist Device Used No (0 pt) Altered Elimination No (0 pt) Score/Fall Risk Level 0 - 2 = Low Risk Oriented to surroundings, Maintained a safe environment, Educated pt \T\ family on fall prevention, incl call for assistance when getting out of bed, Assessed \T\ reinforced patient's understanding of fall precautions. Abuse screen: Denies threats or abuse. Denies injuries from another. Nutritional screening: No deficits noted. Tuberculosis screening: No symptoms or risk factors identified. Assessment: 20:56 General: Appears in no apparent distress. comfortable, Behavior is calm, cooperative. lg3 Pain: Denies pain. Neuro: No deficits noted. Crenshaw Agitation-Sedation Scale (RASS): 0 - Alert and Calm Level of Consciousness is awake, alert, obeys commands, intermittent confusion noted. Oriented to person, place, time, situation. Cardiovascular: No deficits noted. Denies chest pain, shortness of breath, Capillary refill < 3 seconds Clubbing of nail beds is absent JVD is absent Patient's skin is warm and dry. Respiratory: No deficits noted. Airway is patent Respiratory effort is even, unlabored, Respiratory pattern is regular, symmetrical. GI: No deficits noted. No signs and/or symptoms were reported involving the gastrointestinal system. Abdomen is round non-distended. : Urine is clear. EENT: No deficits noted. No signs and/or symptoms were reported regarding the EENT system. Derm: No deficits noted. No signs and/or symptoms reported regarding the dermatologic system. Skin is intact, is healthy with good turgor, Skin is dry, Skin is normal, Skin temperature is warm. Musculoskeletal: No deficits noted. No signs and/or symptoms reported regarding the musculoskeletal system. Circulation, motion, and sensation intact. Range of motion: intact in all extremities. 22:35 Reassessment: Patient appears in no apparent distress at this time. No changes from lg3 previously documented assessment. Patient and/or family updated on plan of care and expected duration. Pain level reassessed. Patient is alert, oriented x 3, equal unlabored respirations, skin warm/dry/pink. Vital Signs: 20:23 Pain 0/10; vc1 20:24 BP 157 / 89; Pulse 55; Resp 15 S; Pulse Ox 99% on R/A; jw7 22:35 BP 144 / 81; Pulse 59; Resp 16 S; Temp 97.4(O); Pulse Ox 99% on R/A; lg3 20:23 Pain Scale: Adult vc1 [place] Coma Score: 20:56 Eye Response: spontaneous(4). Motor Response: obeys commands(6). Verbal Response: lg3 oriented(5). Total: 15. ED Course: 19:20 Patient arrived in ED. gm2 19:49 Peterson Cleveland MD is Attending Physician. ec2 20:25 Triage completed. vc1 20:36 CT Head Brain wo Cont In Process Unspecified. EDMS 20:56 Jenn Hollis RN is Primary Nurse. lg3 20:56 Patient has correct armband on for positive identification. Placed in gown. Bed in low lg3 position. Call light in reach. Side rails up X 1. Client placed on continuous cardiac and pulse oximetry monitoring. NIBP monitoring applied. artist's manager on. Door closed. Noise minimized. Warm blanket given. Pillow given. Family accompanied patient. 20:56 Arm band placed on right wrist. lg3 20:56 Initial lab(s) drawn, by wy, sent to lab. Urine collected: clean catch specimen, clear, lg3 EKG done, by telecom field technician. reviewed by Peterson Cleveland MD X-ray(s) taken. Inserted saline lock: 20 gauge in right antecubital area, using aseptic technique. Blood collected. 21:05 XRAY Chest (1 view) In Process Unspecified. EDMS 22:35 No provider procedures requiring assistance completed. IV discontinued, intact, lg3 bleeding controlled, No redness/swelling at site. Pressure dressing applied. Administered Medications: No medications were administered Medication: 22:35 VIS not applicable for this client. lg3 Outcome: 22:14 Discharge ordered by . ec2 22:35 Discharged to home ambulatory, with family, lg3 22:35 Condition: stable 22:35 Discharge instructions given to patient, Instructed on discharge instructions, follow up and referral plans. Demonstrated understanding of instructions, follow-up care, 22:38 Patient left the ED. lg3 Signatures: Dispatcher [employer] EDMS Jenn Hollis RN RN lg3 Matilde Ramon RN RN vc1 Jumana Soliz RN RN jw7 Peterson Cleveland MD MD Padma Monk
[2024-05-06 11:26] VITALS: BP 144/81; O2SAT 99
[2024-05-06 11:27] VITALS: TEMP 97.4
--- NOTE | 2024-05-06 13:03 | EKG ---
Test Date: 2024-05-05 Test Time: 20:48:02 Dietary Manager: RRAnnemarie MEASUREMENT RESULTS: Intervals: Rate: 52 TX: QRSD: 100 QT: 470 QTc: 437 [place]: P: TX: QRS: 31 T: 196 INTERPRETIVE STATEMENTS: Atrial fibrillation Nonspecific ST and T wave abnormality, probably digitalis effect Abnormal ECG Compared to ECG 09/05/1996 08:41:00 ST (T wave) deviation now present Sinus bradycardia no longer present Electronically Signed On 05-06-24 13:01:44 CDT by Wesley Jolly
== END 2024-05-05 22:38 | disposition home or self-care (01) ==
LOC: ER 19:16
DX: G47.51 Confusional arousals (principal); R44.1 Visual hallucinations
CPT/HCPCS: 36415; 70450; 71045; 80048; 81001; 82140; 84439; 84443; 85025; 93005; 99284

== ENCOUNTER 2024-10-02 21:04 | Emergency (ER) | payer OTHER ==
[2024-10-02] MEDS ORDERED: WATER FOR INJ,STERILE 10 ML ONE (21:37)
[2024-10-02] MEDS ORDERED: ZIPRASIDONE MESYLA 20 MG/VIAL IM ONE (21:37)
[2024-10-02 21:46] LABS: PT Prothrombin Time 13.6 SECONDS (9.4-12.5); Protime INR 1.22
[2024-10-02] MEDS ORDERED: ONDANSETRON 4 MG/2 ML VIAL ONE (21:48)
[2024-10-02] MEDS ORDERED: LIDOCAINE 1% 20 ML MDV ONE (21:49)
[2024-10-02 21:51] LABS: Absolute Eosinophils 0.2 K/uL (0-0.5); Absolute Lymphocytes (CBC) 1.3 K/uL (0.7-4.9); Absolute Monocytes 0.6 K/uL (0.1-1.3); Absolute Neutrophil 2.9 K/uL (1.8-8.0); Basophils % 0.9 % (0-1.3); Eosinophils % 3.9 % (0-4.4); Hematocrit 33.8 % (39.6-49.0); Hemoglobin 11.3 g/dL (13.6-17.9); Lymphocytes % 25.6 % (15.3-44.8); MCH 31.6 pg (27.0-35.0); MCHC 33.4 g/dL (32.0-36.0); MCV 94.5 fL (80-100); MPV 9.5 fL (7.6-11.3); Monocytes % 11.6 % (3.3-12.3); Nucleated Red Blood Cells % 0.1 % (0-0); Platelets 111 thou/uL (152-406); RBC Red Blood Cell Count 3.58 M/uL (4.33-5.43); Red Cell Distribution Width 15.8 % (12.1-15.2)
--- NOTE | 2024-10-02 22:09 | RAD REPORT ---
Procedure: Chest Single View HISTORY: Chest pain COMPARISON: July 2024 FINDINGS: The lungs appear clear of acute infiltrate. Chronic elevation left hemidiaphragm. No significant pleural effusion noted. The heart is mildly to moderately enlarged. IMPRESSION: No acute abnormality is displayed.
[2024-10-02 22:10] LABS: AST/SGOT 14 U/L (15-37); Albumin 2.5 g/dL (3.4-5.0); Albumin/Globulin Ratio 0.6 (1.1-1.8); Alkaline Phosphatase 46 U/L (45-117); Anion Gap 7.8 mEq/L (5.0-15.0); BUN Blood Urea Nitrogen 18 mg/dL (7-18); Bicarbonate 30 mEq/L (21-32); Bilirubin Direct 0.2 mg/dL (0-0.2); Bilirubin Indirect, Calculated 0.5 mg/dL (0.2-0.8); Bilirubin Total 0.7 mg/dL (0.2-1.0); Globulin 4.1 g/dL (2.3-3.5); Glomerular Filtration Rate 77 ml/min (=/>90); Glucose Level 97 mg/dL (74-106); NT PRO-BNP 3828 pg/mL (<450); Potassium 3.8 mEq/L (3.5-5.1); Protein, Total 6.6 g/dL (6.4-8.2); Sodium Level 140 mEq/L (136-145); Troponin High Sensitivity 15.7 pg/mL (<58.9)
[2024-10-02 22:14] LABS: ALT/SGPT < 14 U/L (16-61)
--- NOTE | 2024-10-02 22:16 | RAD REPORT ---
EXAMINATION: CT HEAD WITHOUT CONTRAST CT CERVICAL SPINE WITHOUT CONTRAST CLINICAL INDICATION: Head and neck injury status post fall. Head and neck pain TECHNIQUE: Axial CT images from the skull base to the vertex without intravenous contrast. Axial CT i mages through the cervical spine were obtained without intravenous contrast. Sagittal and coronal reformatted images were created from the data set. Coronal and sagittal reformatted images were creat ed from the data set. One or more of the following dose reduction techniques were used: Automated exposure control, adjustment of the mA and/or kV according to patient size, and/or iterative reconstr uction. Unless otherwise specified, incidental findings do not require dedicated imaging follow-up. [id number]. Comparison: none Intracranial bleed not noted. Ventricles are normal in caliber. No significant hypodensity within the brain No extra-axial fluid collection. No fluid within the sinuses/mastoids No fracture or dislocation is seen involving the cervical spine.. Mild chronic anterior subluxation C7 on T1 Stable 19 mm nodule right lobe thyroid gland. Metallic structures posterior left maxillary sinus results in adjacent artifact. IMPRESSION: No acute intracranial abnormality noted A cervical fracture is not seen. If the patient continues to have symptoms to suggest acute MAP AND CHART [employer]TER/spinal pathology then MRI would be recommended
--- NOTE | 2024-10-02 22:19 | RAD REPORT ---
Exam:Pelvis CLINICAL HISTORY: Pelvic pain FINDINGS: No fracture or dislocation seen Osteoporosis. No evidence of loosening of the visualized left hip prosthesis.
--- NOTE | 2024-10-02 22:30 | RAD REPORT ---
EXAMINATION: CT MAXILLOFACIAL WITHOUT CONTRAST CLINICAL INDICATION: Facial pain status post fall TECHNIQUE: Axial images were obtained through the facial bones and orbits without intravenous contras t. Sagittal and coronal reconstructions were created from the data. One or more of the following dose reduction techniques were used: Automated exposure control, adjustment of the mA and/or kV accor ding to patient size, and/or iterative reconstruction. Unless otherwise specified, incidental findings do not require dedicated imaging follow-up. COMPARISON: 2018. FINDINGS: Due to difficulty with patient positioning the entire anterior aspects of the mandible not included i n the [id number]. On review of the CT cervical spine same date there is significant patient motion artifact in the francisco on of the anterior mandible which makes evaluation nondiagnostic. If the patient has clinical symptoms to suggest an anterior mandibular fracture then CT mandible with the patient sedated would b e recommended. No acute fracture seen of the visualized facial bones. Post surgical changes left maxillary sinus No acute fracture seen. A TMJ dislocation not noted. The globes are intact.. Fluid within the sinuses not noted IMPRESSION: No acute abnormality displayed. Please refer to the body of the report for mandibular findings
[2024-10-02 23:17] LABS: Specific Gravity 1.015 (1.005-1.030); Sqamous Epithelial <5 /HPF (None Seen); Urine Bacteria <20 /HPF (<20); Urine Bilirubin NEGATIVE (Negative); Urine Blood Negative (Negative); Urine Clarity Turbid (Clear); Urine Color Light-Yellow (Yellow); Urine Culture Reflex Order NOT NEEDED; Urine Glucose NEGATIVE (Negative); Urine Ketones TRACE (Negative); Urine Micro Reflex YN NO BILL MICROSCOPIC; Urine Mucus Slight /HPF (None Seen); Urine Nitrite NEGATIVE (Negative); Urine Protein NEGATIVE (Negative); Urine RBC None Seen /HPF (None Seen); Urine Urobilinogen 1+ (Normal); Urine WBC <5 /HPF (<5); Urine WBC Clump Rare /HPF (None Seen); Urine pH 6.5 (5.0-7.0)
[2024-10-02 23:23] LABS: Blood Morphology Comment NOTED (NOT SEEN); Ovalocytes 1+; Platelet Estimate ADEQ; White Blood Cell Scan OK (OK)
--- NOTE | 2024-10-03 01:30 | ER ---
Nurse's Notes [facility] Name: Que Taylor Age: 84 yrs Sex: Male : 1940 Arrival Date: 10/02/2024 Time: 21:04 Bed 26 Private MD: Diagnosis: Injury of muscle and tendon of head;Acute head injury, acute right cheek laceration with skin tear, acute fall in the [facility], Acute lower lip laceration, Presentation: 10/02 21:13 Chief complaint: EMS states: toned out to [facility] for fall. Patient is me1 nonambulatory at baseline and tried to stand falling down and injuring his face. Laceration to right cheek and inside mouth, New skin tear to R elbow. Patient has alzheimers and has had some recent falls with old skin tear to left elbow and sutures to right forehead. 18g LAC, given NS 300 ml. Coronavirus screen: Vaccine status: At this time, the client does not indicate any symptoms associated with coronavirus-19. Ebola Screen: No symptoms or risks identified at this time. Risk Assessment: Do you want to hurt yourself or someone else? Patient reports no desire to harm self or others. Onset of symptoms was October 02, 2024. 21:13 Method Of Arrival: EMS: [facility] 21:13 Acuity: FELIX 3 me1 21:13 Care prior to arrival: Medication(s) given: Normal saline infusion, 300 ml IV me1 initiated. 18 GA, in the left antecubital area. Triage Assessment: 21:17 General: Appears in no apparent distress. well groomed, well developed, well nourished, me1 Behavior is cooperative, appropriate for age, anxious. Pain: Unable to use pain scale. Does not appear to understand pain scale. EENT: No signs and/or symptoms were reported regarding the EENT system. Neuro: Level of Consciousness is awake, alert, confused, Oriented to person. Cardiovascular: Patient's skin is warm and dry. Respiratory: Airway is patent Trachea midline Respiratory effort is even, unlabored, Respiratory pattern is regular, symmetrical. GI: No signs and/or symptoms were reported involving the gastrointestinal system. : No signs and/or symptoms were reported regarding the genitourinary system. Derm: Skin is healthy with good turgor, Skin is pink, warm \T\ dry. Wound noted right cheek and right elbow Wound is laceration to right cheek, laceration inside mouth as well. Skin tear to right elbow. Old skin tear to left elbow. Old laceration to right forehead with sutures. Musculoskeletal: No signs and/or symptoms reported regarding the musculoskeletal system. Injury Description: fall. Historical: - Allergies: 21:17 No Known Allergies; me1 - PMHx: 21:17 Alzheimer's disease; Anxiety; Atrial Fib; Atrial fibrillation; Cellulitis of right me1 lower leg; CKD; constipation; Dementia; enlarged prostate; GERD; Hx of Falls; Hypercholesterolemia; Hypertension; insomnia; Unspecified psychosis; mood disorder; - PSHx: 21:17 Hip replacement; me1 - Immunization history:: Adult Immunizations up to date. - Infectious Disease History:: Denies. - Social history:: Smoking status: unknown. - Family history:: not pertinent. Screenin:21 [facility] ED Fall Risk Assessment (Adult) History of falling in the last 3 months, [facility] including since admission Yes- fall prone (multiple falls) (3 pts) Confusion or Disorientation Yes (5 pts) Intoxicated or Sedated No (0 pts) Impaired Gait Yes (1 pt) Mobility Assist Device Used Yes (1 pt) Altered Elimination Yes (1 pt) Score/Fall Risk Level 3 or more points = High Risk Maintained a safe environment, Hourly rounding (assess needs \T\ fall precautionary measures) done, Used ambulatory aids as needed (educated on \T\ assisted with). Abuse screen: Denies threats or abuse. Nutritional screening: No deficits noted. Tuberculosis screening: No symptoms or risk factors identified. Assessment: 21:21 General: See triage assessment. . or1 10/03 00:00 Reassessment: Pt resting in bed with eyes closed, respirations are even and unlabored jb4 with no s/s of pain or distress noted. Received report from SELENE Tubbs. 01:01 Reassessment: Pt resting in bed with eyes closed, respirations are even and unlabored jb4 with no s/s of pain or distress noted. 02:32 Reassessment: Patient appears in no apparent distress at this time. No changes from jb4 previously documented assessment. Patient and/or family updated on plan of care and expected duration. Pain level reassessed. Pt being transferred back to [facility] via [facility]. Vital Signs: 10/02 21:17 BP 124 / 68; Pulse 63; Resp 20; Temp 98.2; Pulse Ox 97% ; me1 22:00 BP 148 / 73; Pulse 66; Resp 18; Pulse Ox 100% on 4 lpm NC; me1 23:00 BP 119 / 72; Pulse 82; Resp 18; Pulse Ox 100% ; me1 10/03 00:05 BP 149 / 96; Pulse 80; Resp 20; Pulse Ox 98% on R/A; jb4 01:00 BP 145 / 85; Pulse 80; Resp 16; Pulse Ox 100% on R/A; jb4 01:30 BP 131 / 59; Pulse 69; Resp 16; Pulse Ox 95% on R/A; jb4 Karen Coma Score: 20:08 Eye Response: to voice(3). Motor Response: obeys commands(6). Verbal Response: sp4 confused(4). Total: 13. 20:12 Eye Response: to voice(3). Motor Response: obeys commands(6). Verbal Response: sp4 confused(4). Total: 13. ED Course: 10/02 21:06 Patient arrived in ED. rv1 21:08 Khalif Culver MD is Attending Physician. sp4 21:12 Suly Llanes, SELENE is Primary Nurse. me1 21:16 Triage completed. me1 21:17 Arm band placed on Patient placed in an exam room. me1 21:21 Patient has correct armband on for positive identification. Bed in low position. Call me1 light in reach. Side rails up X2. Provided Education on: POC. Verbalized understanding. . Client placed on continuous cardiac and pulse oximetry monitoring. NIBP monitoring applied. Pulse ox on. NIBP on. Warm blanket given. 21:21 No provider procedures requiring assistance completed. me1 21:21 Maintain EMS IV. Dressing intact. Good blood return noted. Site clean \T\ dry. Gauge \T\ me 1 site: 18g LAC. Flushed with 10 mL NS. 21:41 Basic Metabolic Panel Sent. oe 21:41 CBC with Diff Sent. oe 21:41 LFT's Sent. oe 21:41 Magnesium Sent. oe 21:41 NT PRO-BNP Sent. oe 21:41 PT-INR Sent. oe 21:41 Troponin HS Sent. oe 22:02 XRAY Chest (1 view) In Process Unspecified. EDMS 22:02 Pelvis XRAY In Process Unspecified. EDMS 22:08 CT Head C Spine In Process Unspecified. EDMS 22:10 CT Facial Bones W/O Con In Process Unspecified. EDMS 22:58 Butts cath inserted, using sterile technique, 16 Fr., by or, balloon inflated, to ty gravity drainage, urine specimen collected. 23:01 Urinalysis W/Microscopic Sent. ty 10/03 01:57 Butts cath removed intact, balloon deflated. ty 02:32 IV discontinued, intact, bleeding controlled, No redness/swelling at site. Pressure jb4 dressing applied. Administered Medications: 10/02 21:43 Drug: Geodon IM 40 mg IM once Route: IM; Site: left deltoid; me1 21:55 Follow up: Response: No adverse reaction; Anxiety decreased me1 21:55 Not Given (last tetanus given ): boostrix tdap0.5 ml IM once; as a single dose me1 21:55 Drug: Ondansetron IVP 4 mg IVP once; over 2 minutes Route: IVP; Site: left antecubital; me1 22:36 Follow up: Response: No adverse reaction; Nausea is decreased me1 22:41 Drug: Lidocaine Infiltration (1 %) 20 ml 20 ml Infiltration once; to bedside {Note: To me1 be administered by Dr Culver.} Volume: 20 ml; Route: Infiltration; Medication: 21:21 VIS not applicable for this client. me1 Outcome: 10/03 01:30 Discharge ordered by . adrian 01:30 Discharged to [facility]. Report called to Silviano garcia 01:30 Condition: stable 01:30 Discharge instructions given to [facility]dc, EMS, Instructed on discharge instructions, follow up and referral plans. medication usage, Demonstrated understanding of instructions, follow-up care, medications, Prescriptions given X 1, 02:39 Patient left the ED. jb4 Signatures: Dispatcher [employer] Ad Sousa, RN RN jb4 Catrachito Gonzalez Rebecca Khalif Ayoub MD MD sp4 Suly Llanes RN RN or1 Alistair Rolon ty
--- NOTE | 2024-10-03 01:30 | EDPHYS ---
Physician Documentation [facility] Name: Que Taylor Age: 84 yrs Sex: Male : 1940 Arrival Date: 10/02/2024 Time: 21:04 Bed 26 Private MD: ED Physician Khalif Culver HPI: 10/02 21:08 This 84 yrs old Male presents to ER via Unassigned with complaints of fall sp4 onto the face. 10/03 20:08 84-year-old male presents with acute facial injuries after fall in a [facility]. Has sp4 moderate to advanced dementia and is not able to provide any history. Patient has right upper cheek skin tear associated with active bleeding and lower lip laceration associated with active bleeding . . Historical: - Allergies: 10/02 21:17 No Known Allergies; me1 - PMHx: 21:17 Alzheimer's disease; Anxiety; Atrial Fib; Atrial fibrillation; Cellulitis of right me1 lower leg; CKD; constipation; Dementia; enlarged prostate; GERD; Hx of Falls; Hypercholesterolemia; Hypertension; insomnia; Unspecified psychosis; mood disorder; - PSHx: 21:17 Hip replacement; me1 - Immunization history:: Adult Immunizations up to date. - Infectious Disease History:: Denies. - Social history:: Smoking status: unknown. - Family history:: not pertinent. ROS: 10/03 20:08 Constitutional: Negative for fever, chills, and weight loss, full ROS not available sp4 secondary to dementia. Positive for facial laceration and lower lip laceration All other systems are negative, Unable to obtain ROS due to baseline dementia, Exam: 20:08 Constitutional: This is a well developed, well nourished patient , patient is elderly sp4 physically debilitated male with signs of immobility, patient has significant bleeding from upper cheek laceration lower lip laceration. Face is covered in blood. Patient has partial lower denture. Signs of physical deconditioning and moderate to severe dementia. Not able to provide any history. Head/Face: Normocephalic, Right upper cheek skin tear positive for lower lip skin tear. Actively bleeding Eyes: Pupils equal round and reactive to light, extra-ocular motions intact. Lids and lashes normal. Conjunctiva and sclera are not injected. Cornea within normal limits. Periorbital areas with no swelling, redness, or edema. ENT: Nares patent. No nasal discharge, no septal abnormalities noted. Tympanic membranes are normal and external auditory canals are clear. Oropharynx with no redness, swelling, or masses, exudates, or evidence of obstruction, uvula midline. Patient has dry mucous membranes he has partial lower denture. No acute dental injury Neck: Trachea midline, no thyromegaly or masses palpated, and no cervical lymphadenopathy. Supple, full range of motion without nuchal rigidity, or vertebral point tenderness. Chest/axilla: Normal chest wall appearance and motion. Nontender with no deformity. No lesions are appreciated. Cardiovascular: Regular rate and rhythm with a normal S1 and S2. No gallops, murmurs, or rubs. Normal PMI, no JVD. No pulse deficits. Respiratory: Lungs have equal breath sounds bilaterally, clear to auscultation and percussion. No rales, rhonchi or wheezes noted. No increased work of breathing, no retractions or nasal flaring. Abdomen/GI: Soft, with normal bowel sounds. No distension or tympany. No guarding or rebound. No evidence of tenderness throughout. Back: No spinal tenderness. No costovertebral tenderness. Skin: Warm, dry with normal turgor. Normal color with no rashes, no lesions, and no evidence of cellulitis. Positive For facial laceration and facial contusions see exam of head and neck MS/ Extremity: Pulses equal, no cyanosis. Neurovascular intact. Full, normal range of motion. Signs of Physical debility without acute deformities Neuro: Awake and alert, GCS 13 , oriented to person, Cranial nerves II-XII grossly intact. Motor strength 5/5 in all extremities. Moves all extremities Psych: Awake, alert, with orientation to person, oriented to self only Vital Signs: 10/02 21:17 BP 124 / 68; Pulse 63; Resp 20; Temp 98.2; Pulse Ox 97% ; me1 22:00 BP 148 / 73; Pulse 66; Resp 18; Pulse Ox 100% on 4 lpm NC; me1 23:00 BP 119 / 72; Pulse 82; Resp 18; Pulse Ox 100% ; me1 10/03 00:05 BP 149 / 96; Pulse 80; Resp 20; Pulse Ox 98% on R/A; jb4 01:00 BP 145 / 85; Pulse 80; Resp 16; Pulse Ox 100% on R/A; jb4 01:30 BP 131 / 59; Pulse 69; Resp 16; Pulse Ox 95% on R/A; jb4 Karen Coma Score: 20:08 Eye Response: to voice(3). Motor Response: obeys commands(6). Verbal Response: sp4 confused(4). Total: 13. 20:12 Eye Response: to voice(3). Motor Response: obeys commands(6). Verbal Response: sp4 confused(4). Total: 13. Laceration: 01:27 Wound Repair of 3cm ( 1.2in ) subcutaneous laceration to right cheek. Irregularly sp4 shaped.. Minimal bleeding noted.. Distal neuro/vascular/tendon intact. Anesthesia: Wound infiltrated with 10 mls of 1% lidocaine. Wound prep: Moderate cleansing by me, Copious irrigation. Skin closed with 7 4-0 Silk using interrupted sutures and sterile technique. Dressed with Neosporin, 4x4's. Patient tolerated well. 01:27 Wound Repair of 1cm ( 0.4in ) subcutaneous laceration to face and lower lip. sp4 Irregularly shaped.. Minimal bleeding noted.. Distal neuro/vascular/tendon intact. Anesthesia: Wound infiltrated with 5 mls of 1% lidocaine. Wound prep: Moderate cleansing by me, Copious irrigation. Skin closed with 4 4-0 Vicryl using interrupted sutures and sterile technique. Dressed with left to air . Patient tolerated well. MDM: 10/02 21:09 Medical Screening Exam initiated sp4 10/03 01:04 ED course: IMPRESSION: No acute intracranial abnormality noted A cervical fracture is sp4 not seen. If the patient continues to have symptoms to suggest acute PORTFOLIO ADMINISTRATOR/spinal pathology then MRI would be recommended . ED course: Exam Date: 10/02/24 Exam:Pelvis CLINICAL HISTORY: Pelvic pain FINDINGS: No fracture or dislocation seen Osteoporosis. No evidence of loosening of the visualized left hip prosthesis. . ED course: Exam Date: 10/02/24 Procedure: Chest Single View HISTORY: Chest pain COMPARISON: July 2024 FINDINGS: The lungs appear clear of acute infiltrate. Chronic elevation left hemidiaphragm. No significant pleural effusion noted. The heart is mildly to moderately enlarged. IMPRESSION: No acute abnormality is displayed. . ED course: EXAMINATION: CT MAXILLOFACIAL WITHOUT CONTRAST CLINICAL INDICATION: Facial pain status post fall TECHNIQUE: Axial images were obtained through the facial bones and orbits without intravenous contrast. Sagittal and coronal reconstructions were created from the data. One or more of the following dose reduction techniques were used: Automated exposure control, adjustment of the mA and/or kV according to patient size, and/or iterative reconstruction. Unless otherwise specified, incidental findings do not require dedicated imaging follow-up. COMPARISON: 2018. FINDINGS: Due to difficulty with patient positioning the entire anterior aspects of the mandible not included in the [id number]. On review of the CT cervical spine same date there is significant patient motion artifact in the region of the anterior mandible which makes evaluation nondiagnostic. If the patient has clinical symptoms to suggest an anterior mandibular fracture then CT mandible with the patient sedated would be recommended. No acute fracture seen of the visualized facial bones. Post surgical changes left maxillary sinus No acute fracture seen. A TMJ dislocation not noted. The globes are intact.. Fluid within the sinuses not noted IMPRESSION: No acute abnormality displayed. Please refer to the body of the report for mandibular findings.. 20:12 Differential diagnosis: Contusion of Hematoma on Laceration of Intracranial bleed- sp4 Concussion cerebral contusion. Data reviewed: vital signs, nurses notes, old medical records, lab test result(s), radiologic studies, CT scan, plain films. ED course: Patient's lower lip laceration was repaired, patient right cheek skin tear was repaired as a laceration. Bleeding was controlled. Patient stable for discharge back to [facility]. custodial reported that patient becomes agitated gets up and falls . Prescribed as needed Geodon. Here in the emergency room patient did get agitated on exam and had to be given IM Geodon to facilitate CAT scan of the head and neck done seems to work really well for the patient. Was prescribed as needed Geodon for acute agitation at the [facility]. Will advise follow-up with [facility] physician for further management of agitation.. . 10/02 21:08 Order name: Basic Metabolic Panel; Complete Time: 01: sp4 10/02 21:08 Order name: CBC with Diff; Complete Time: : sp4 10/02 21:08 Order name: LFT's; Complete Time: 01:01 sp4 10/02 21:08 Order name: Magnesium; Complete Time: 01:01 sp4 10/02 21:08 Order name: NT PRO-BNP; Complete Time: 01:01 sp4 10/02 21:08 Order name: PT-INR; Complete Time: 01:01 sp4 10/02 21:08 Order name: Troponin HS; Complete Time: 01:01 sp4 10/02 21:09 Order name: Urinalysis W/Microscopic; Complete Time: 01:01 sp4 10/02 22:42 Order name: CBC Smear Scan; Complete Time: 01:01 EDMS 10/02 21:08 Order name: XRAY Chest (1 view); Complete Time: 01:01 sp4 10/02 21:09 Order name: CT Head C Spine; Complete Time: 01:02 sp4 10/02 21:09 Order name: CT Facial Bones W/O Con; Complete Time: 01:02 4 10/02 21:10 Order name: Pelvis XRAY; Complete Time: 01:02 [facility] 10/02 21:08 Order name: IV Saline Lock; Complete Time: 21:43 sp4 10/02 21:08 Order name: Labs collected and sent; Complete Time: 21:43 4 10/02 21:08 Order name: O2 Per Protocol; Complete Time: 21:43 sp4 10/02 21:08 Order name: O2 Sat Monitoring; Complete Time: 21:43 sp4 10/02 21:09 Order name: Butts; Complete Time: 23:01 4 10/02 21:23 Order name: Dressing - Wound; Complete Time: 01:45 sp 10/02 21:23 Order name: Gloves, Sterile; Complete Time: 21:50 sp4 10/02 21:23 Order name: Setup Suture Tray; Complete Time: 21:50 sp4 Administered Medications: 10/02 21:43 Drug: Geodon IM 40 mg IM once Route: IM; Site: left deltoid; me1 21:55 Follow up: Response: No adverse reaction; Anxiety decreased me1 21:55 Not Given (last tetanus given ): boostrix tdap0.5 ml IM once; as a single dose me1 21:55 Drug: Ondansetron IVP 4 mg IVP once; over 2 minutes Route: IVP; Site: left antecubital; me1 22:36 Follow up: Response: No adverse reaction; Nausea is decreased me1 22:41 Drug: Lidocaine Infiltration (1 %) 20 ml 20 ml Infiltration once; to bedside {Note: To me1 be administered by Dr Culver.} Volume: 20 ml; Route: Infiltration; Disposition: 10/03 20:15 Chart complete. sp4 Disposition Summary: 10/03/24 01:30 Discharge Ordered Problem: new sp4 Symptoms: have improved sp4 Condition: Stable sp4 Diagnosis - Injury of muscle and tendon of head sp4 - Acute head injury, acute right cheek laceration with skin tear, acute fall in sp4 the [facility], Acute lower lip laceration, Followup: sp4 - With: Private Physician - When: 2 - 3 days - Reason: Recheck today's complaints Discharge Instructions: - Discharge Summary Sheet sp4 - Laceration Care, Adult, [id number] sp4 Forms: - Patient Portal Instructions sp4 Prescriptions: - Geodon 20 mg Oral capsule - take 1 capsule ORAL route daily PRN agitation; 20 capsule; Refills: 0, Product sp4 Selection Permitted Signatures: Dispatcher [employer] Khalif Clay MD MD sp4 Suly Llanes RN RN me1 Corrections: (The following items were deleted from the chart) 10/02 21:09 21:09 Chest Single View+RAD.RAD.BRZ ordered. EDMS EDMS 21: 21:09 Facial Bones W/ MPR+CT.RAD.BRZ ordered. EDMS EDMS
[2024-10-03 02:43] VITALS: TEMP 98.2
[2024-10-03 02:49] VITALS: BP 131/59; O2SAT 95
== END 2024-10-03 02:39 | disposition home or self-care (01) ==
LOC: ER 21:04
DX: S01.411A Laceration without foreign body of right cheek and temporomandibular area, initial encounter (principal); S01.511A Laceration without foreign body of lip, initial encounter; S09.19XA Other specified injury of muscle and tendon of head, initial encounter; W18.30XA Fall on same level, unspecified, initial encounter; Y92.129 Unspecified place in nursing home as the place of occurrence of the external cause; G30.9 Alzheimer's disease, unspecified; F02.80 Dementia in other diseases classified elsewhere, unspecified severity, without behavioral disturbance, psychotic disturbance, mood disturbance, and anxiety
CPT/HCPCS: 85025; 81001; 80048; 36415; 83735; 85610; 80076; 84484; 83880; 70450; 72125; 70486; 76377; 71045; 72170; 51702; 96372; 96374; 99285; 12013; J2003; J3486; J2405